=== PATIENT | female | born 1940 | race Caucasian/White ===

== ENCOUNTER 2021-06-22 11:56 | Emergency (ER) | payer MEDICARE, SELFPAY ==
[2021-06-22] VITALS (8 sets, daily range): BP systolic 130–172; BP diastolic 62–89; PULSE 58–66; RESP 15–20; TEMP 36.3; O2SAT 98–100
[2021-06-22 12:50] LABS: Basophils Percent Auto 0.5 % (0.2-1.2); Eosinophils Absolute Auto 0.1 K/mm3 (0-0.3); Eosinophils Percent Auto 2.2 % (0-4.4); Hematocrit 42.8 % (37.0-47.0); Lymphocytes Absolute Auto 0.71 K/mm3 (0.9-3.2); Lymphocytes Percent Auto 17.4 % (18.3-44.2); Mean Corpuscular HGB Conc 32.7 g/dl (32-36); Mean Corpuscular Hemoglobin 28.7 pg (26-34); Mean Corpuscular Volume 87.7 fl (80-100); Mean Platelet Volume 9.9 fl (7.4-10.4); Monocytes Absolute Auto 0.3 K/mm3 (0.1-0.6); Monocytes Percent Auto 6.1 % (2.6-8.5); Neutrophils Percent Auto 73.8 % (45.5-73.1); Platelet Count Result 198 k/mm3 (150-375); Red Blood Count 4.88 M/mm3 (4.2-5.4); Red Cell Distribution Width 13.1 % (11.5-14.5); White Blood Count 4.1 K/mm3 (4.5-10.0)
[2021-06-22 13:13] LABS: Add Urine Microscopic? YES; Appearance Urine Cloudy (Clear); Bilirubin Urine Negative (Negative); Blood Urine Negative (Negative); Color Urine Amber (Yellow); Glucose Urine UA Negative (Negative); Ketones Urine Trace mg/dL (Negative); Leukocyte Esterase Ur Negative LEU/UL (Negative); Mucus Urine Rare /lpf; Nitrate Urine Negative (Negative); Protein Urine 1+ mg/dL (Negative); Specific Grav Ur 1.026 (1.001-1.035); Squamous Epithelial Cell Urine Rare /hpf (Few); WBC Urine 0-3 /hpf
[2021-06-22 13:20] LABS: Alanine Aminotransferase 17 U/L (4-35); Albumin Level 4.7 g/dL (3.5-5.1); Alkaline Phosphatase 67 U/L (38-126); Anion Gap 8 mmol/L (8-16); Aspartate Amino Transferase 28 U/L (14-36); Bilirubin,Total 1.7 mg/dL (0.2-1.3); Blood Urea Nitrogen 15 mg/dL (7-17); Calcium 10.7 mg/dL (8.4-10.2); Carbon Dioxide 30 mmol/L (22-30); Chloride 98 mmol/L (98-107); Estimated CRCL calculation 30 ml/min; Estimated Glomerular Filt Rate 53; Glucose 109 mg/dL (65-110); Lipase 180 U/L (23-300); Potassium 3.6 mmol/L (3.4-5.0); Sodium 136 mmol/L (137-145)
[2021-06-22] MEDS: SODIUM CHLORIDE 0.9% IV 1,000 ML 999 ML IV CONT (16:26)
[2021-06-22] MEDS: ONDANSETRON INJ 4 MG/2 ML VIAL IV PUSH (16:26)
--- NOTE | 2021-06-22 17:35 | ED.NAVMDI ---
HPI - Nausea/Vomiting/Diarrhea General Chief complaint: Nausea/Vomiting/Diarrhea Stated complaint: n/v Time Seen by Provider: 06/22/21 15:45 History of Present Illness HPI Narrative: Patient is an 81-year-old female who presents to the ER with nausea. Ongoing for 6 days. Has tried to eat but cannot make herself eat due to the nausea. She has had no emesis. No known sick contacts. Denies diarrhea. Denies fevers or chills or sweats. Has no access to antiemetics. Related Data Home Medications Medication Instructions Recorded Confirmed atenolol-chlorthalidone tablet 06/22/21 potassium chloride meq PO 06/22/21 Allergies Allergy/AdvReac Type Severity Reaction Status Date / Time latex Allergy Hives Verified 06/22/21 15:45 Review of Systems Review of Systems: All systems reviewed & are unremarkable except as noted in HPI and below Constitutional: Constitutional: Denies chills, Reports fatigue and Denies fever(s) ENT: Denies nasal congestion and Denies sore throat Cardiovascular: Cardiovascular: Denies chest pain and Denies radiating jaw, neck or arm pain Respiratory: Respiratory: Denies cough and Denies dyspnea Gastrointestinal: Gastrointestinal: Denies abdominal pain, Denies diarrhea, Reports nausea and Denies vomiting Genitourinary: Genitourinary: Denies nocturia, Denies dysuria and Denies flank pain PMFSH Past Medical History Medical History (Updated 06/22/21 @ 18:10 by Pollo Nielsen MD) History of colon cancer Surgical History Surgical History (Updated 06/22/21 @ 18:10 by Pollo Nielsen MD) H/O partial resection of colon Social History Social History (Updated 06/22/21 @ 18:10 by Pollo Nielsen MD) Smoking status: Never smoker Gender identity (if verbalized by the patient): Female Exam Narrative: GENERAL: Well-appearing, well-nourished, and in no acute distress. HEAD: Normocephalic, atraumatic. EYES: PERRL and EOMI. CHEST: Clear to auscultation. No respiratory distress. HEART: Regular rate and rhythm. Normal peripheral pulses. ABDOMEN: Soft, nontender, nondistended, normal active bowel sounds. EXTREMITIES: Normal range of motion. No edema. SKIN: Warm, dry, no rash. NEURO: Alert and oriented x3. PSYCH: Normal mood and affect. Course Course Emergency Course: Symptoms resolved with antiemetics and fluids. Discharge home. Vital Signs Vital signs: Vital Signs Temperature 97.4 F L 06/22/21 12:12 Pulse Rate 63 06/22/21 12:12 Respiratory Rate 20 06/22/21 12:12 Blood Pressure 130/76 06/22/21 12:12 Pulse Oximetry 98 06/22/21 12:12 Temperature 97.4 F L 06/22/21 12:12 Pulse Rate 61 06/22/21 17:08 Respiratory Rate 16 06/22/21 17:08 Blood Pressure 148/71 H 06/22/21 17:08 Pulse Oximetry 100 06/22/21 17:08 MDM - Nausea/Vomiting/Diarrhea Lab Data Result diagrams: 06/22/21 12:42 06/22/21 12:42 Labs: Lab Results 06/22/21 06/22/21 06/22/21 Range/Units 12:42 12:42 12:47 WBC 4.1 L (4.5-10.0) K/mm3 RBC 4.88 (4.2-5.4) M/mm3 Hgb 14.0 (12.0-15.0) g/dL Hct 42.8 (37.0-47.0) % MCV 87.7 (80-100) fl MCH 28.7 (26-34) pg MCHC 32.7 (32-36) g/dl RDW 13.1 (11.5-14.5) % Plt Count 198 (150-375) k/mm3 MPV 9.9 (7.4-10.4) fl Immature Gran % (Auto) 0.0 (0-0.5) % Neut % (Auto) 73.8 H (45.5-73.1) % Lymph % (Auto) 17.4 L (18.3-44.2) % [place] % (Auto) 6.1 (2.6-8.5) % Eos % (Auto) 2.2 (0-4.4) % Baso % (Auto) 0.5 (0.2-1.2) % Lymph # (Auto) 0.71 L (0.9-3.2) K/mm3 [place] # (Auto) 0.3 (0.1-0.6) K/mm3 Eos # (Auto) 0.1 (0-0.3) K/mm3 Baso # (Auto) 0.0 (0.0-0.1) K/mm3 Abs Immat Gran (auto) 0.00 (0.00-0.031) K/mm3 Absolute Neuts (auto) 3.0 (1.3-6.7) K/mm3 Absolute Nucleated RBC 0.0 (0.0-0.012) K/mm3 Nucleated RBC % 0.0 (0.0-0.2) % Sodium 136 L (137-145) mmol/L Potassium 3.6 (3.4-5.0) mmol/L Chloride 98
== END 2021-06-22 18:26 | disposition home or self-care (01) ==
PROVIDERS: Emergency Provider Emergency Medicine; PCP Internal Medicine
DX: R11.0 Nausea (principal); Z85.038 Personal history of other malignant neoplasm of large intestine; Z90.49 Acquired absence of other specified parts of digestive tract
CPT/HCPCS: 36415; 80053; 81001; 83690; 85025; 96361; 96374; 99284; J2405; J7030

== ENCOUNTER 2021-09-05 15:48 | Emergency (ER) | payer MEDICARE, SELFPAY ==
[2021-09-05] VITALS (7 sets, daily range): BP systolic 126–139; BP diastolic 51–68; PULSE 56–63; RESP 12–37; TEMP 36.4; O2SAT 99–100
--- NOTE | ~2021-09-05 | XR_ITS ---
EXAMINATION: XR chest 2V DATE: 09/05/2021 17:25 INDICATION: Dizziness. Near syncope. TECHNIQUE: Frontal and lateral views of the chest were obtained. COMPARISON: Chest single view 07/11/2008 FINDINGS: Calcified left lung nodules are consistent with old granulomatous disease. There is mild sc arring at the lung apices. There is mild atelectasis in lingula. No pleural effusion or pneumothorax. The heart size is normal. IMPRESSION: 1. Mild atelectasis in lingula. Reviewed, dictated and finalized at location A.
--- NOTE | 2021-09-05 15:53 | ECG_ITS ---
Measurements Intervals [place] Rate: 56 P: 96 [place]: 195 QRS: -21 QRSD: 101 T: 51 QT: 430 QTc: 419 Interpretive Statements SINUS BRADYCARDIA ANTEROSEPTAL INFARCT, AGE INDETERMINATE CONSIDER INFERIOR INFARCT, AGE INDETERMINATE BASELINE ARTIFACT- I, III, AVL, V4 ABNORMAL ECG Electronically Signed On 09-05-2021 17:50:45 CDT by Johnson Tierney D.O.
[2021-09-05 16:09] LABS: Basophils Percent Auto 0.4 % (0.2-1.2); Eosinophils Absolute Auto 0.1 K/mm3 (0-0.3); Eosinophils Percent Auto 1.5 % (0-4.4); Hematocrit 40.3 % (37.0-47.0); Hemoglobin 13.3 g/dL (12.0-15.0); Immature Granulocyte Absolute 0.02 K/mm3 (0.00-0.031); Immature Granulocyte Percent A 0.4 % (0-0.5); Lymphocytes Absolute Auto 1.06 K/mm3 (0.9-3.2); Lymphocytes Percent Auto 22.3 % (18.3-44.2); Mean Corpuscular Hemoglobin 29.4 pg (26-34); Mean Platelet Volume 9.6 fl (7.4-10.4); Monocytes Absolute Auto 0.3 K/mm3 (0.1-0.6); Monocytes Percent Auto 6.3 % (2.6-8.5); Neutrophils Absolute Auto 3.3 K/mm3 (1.3-6.7); Neutrophils Percent Auto 69.1 % (45.5-73.1); Platelet Count Result 189 k/mm3 (150-375); Red Blood Count 4.53 M/mm3 (4.2-5.4); Red Cell Distribution Width 13.5 % (11.5-14.5); White Blood Count 4.8 K/mm3 (4.5-10.0)
[2021-09-05 16:21] LABS: Anion Gap 10 mmol/L (8-16); Blood Urea Nitrogen 18 mg/dL (7-17); Calcium 10.3 mg/dL (8.4-10.2); Carbon Dioxide 29 mmol/L (22-30); Chloride 103 mmol/L (98-107); Estimated CRCL calculation 32 ml/min; Estimated Glomerular Filt Rate 53; Glucose 141 mg/dL (65-110); Potassium 4.6 mmol/L (3.4-5.0); Sodium 142 mmol/L (137-145)
--- NOTE | 2021-09-05 16:24 | PC.NURSE ---
Called Khadijah in lab and added Hepatic
--- NOTE | 2021-09-05 16:27 | ED.DIZZY ---
HPI - Dizziness General Chief Complaint: Syncope Stated Complaint: NEAR SYNCOPE Time Seen by Provider: 09/05/21 16:13 Source: patient History of Present Illness HPI Narrative: Patient presents with dizziness. Patient was shopping at [employer] was feeling thirsty and was checking out the finance intern when she had a sudden onset lightheadedness. She reports symptoms were brief resolved after drinking water and resting. Reports she feels well now and has no complaints. She reports been feeling well over the past couple days denies any change in p.o. intake recent fevers, cough, congestion, nausea or vomiting. She denies any chest pain or shortness of breath during the event she denies any nausea or vomiting during the event. She denies prior history of syncopal episode she does report history of hypokalemia. Related Data Home Medications Medication Instructions Recorded Confirmed atenolol-chlorthalidone tablet 06/22/21 potassium chloride meq PO 06/22/21 Allergies Allergy/AdvReac Type Severity Reaction Status Date / Time latex Allergy Hives Verified 09/05/21 15:54 Review of Systems Review of Systems: CONSTITUTIONAL: Denies fever, chills, or sweats. EYES: Denies visual changes, redness, or discharge. ENT: Denies rhinorrhea, congestion, sore throat, or otalgia. CARDIOVASCULAR: Denies chest pain, palpitations, or edema. RESPIRATORY: Denies cough or dyspnea. GASTROINTESTINAL: Denies abdominal pain, nausea, vomiting, or diarrhea. GENITOURINARY: Denies dysuria or hematuria. SKIN: Denies rash or itching. MUSCULOSKELETAL: Denies back pain, joint pain, or myalgia. NEUROLOGIC: Denies headache, numbness, dizziness, or weakness. PSYCHIATRIC: Denies anxiety or depression. All systems reviewed & are unremarkable except as noted in HPI and below PMFSH Past Medical History Medical History History of colon cancer Surgical History Surgical History H/O partial resection of colon Social History Social History Smoking status: Never smoker Gender identity (if verbalized by the patient): Female Exam Narrative: GENERAL: Well-appearing, well-nourished, and in no acute distress. HEAD: Normocephalic, atraumatic. EYES: PERRLA and EOMI. ENT: Nares clear, no rhinorrhea or epistaxis. Mucous membranes moist. NECK: Supple. No masses. No JVD CHEST: Clear to auscultation. No respiratory distress. No wheezes rales or rhonchi HEART: Regular rate and rhythm. No murmur heard. Normal peripheral pulses. ABDOMEN: Soft, nontender, nondistended, normal active bowel sounds. EXTREMITIES: Normal range of motion. No edema. SKIN: Warm, dry, no rash. NEURO: No focal deficits. Alert and oriented x3. PSYCH: Normal mood and affect. Course Reevaluation(s) Reevaluation #1: Patient continues to be asymptomatic while in the ER. Work-up reviewed with patient. Primary concern is for UTI. Patient is most comfortable with outpatient antibiotics. With otherwise reassuring work-up trial of outpatient antibiotics is appropriate. Date: 09/05/21 Time: 17:44 Vital Signs Vital signs: Vital Signs Temperature 36.4 C L 09/05/21 15:48 Pulse Rate 63 09/05/21 15:48 Respiratory Rate 18 09/05/21 15:48 Blood Pressure 139/68 09/05/21 15:48 Pulse Oximetry 99 09/05/21 15:48 Temperature 36.4 C L 09/05/21 15:48 Pulse Rate 58 L 09/05/21 16:23 Respiratory Rate 17 09/05/21 16:16 Blood Pressure 126/56 L 09/05/21 16:15 Pulse Oximetry 100 09/05/21 16:16 MDM - Dizziness MDM Narrative Medical decision making narrative: H&P as above, vss, pt looks clinically well, exam reassuring, labs with concern for infected urine otherwise clinically unremarkable, img unremarkable, additional labs/img considered, symptomatic relief available as needed, on reevaluation pt continues to looks clinic
[2021-09-05 16:38] LABS: Alanine Aminotransferase 16 U/L (4-35); Albumin Level 4.6 g/dL (3.5-5.1); Alkaline Phosphatase 53 U/L (38-126); Aspartate Amino Transferase 23 U/L (14-36); Bilirubin,Total 1.1 mg/dL (0.2-1.3)
[2021-09-05] MEDS: SODIUM CHLORIDE 0.9% IV 500 ML 999 ML IV CONT (17:01)
[2021-09-05 17:21] LABS: Add Urine Microscopic? YES; Appearance Urine Cloudy (Clear); Bacteria Urine 1+ /hpf; Bilirubin Urine Negative (Negative); Color Urine Yellow (Yellow); Glucose Urine UA Negative (Negative); Ketones Urine Negative (Negative); Leukocyte Esterase Ur 3+ LEU/UL (Negative); Mucus Urine Rare /lpf; Nitrate Urine Positive (Negative); Protein Urine 1+ mg/dL (Negative); Specific Grav Ur 1.015 (1.001-1.035); Squamous Epithelial Cell Urine Rare /hpf (Few); Urobilinogen Urine Negative mg/dL (<2.0); WBC Urine >75 /hpf
[2021-09-05 17:22] LABS: Blood Urine Negative (Negative)
== END 2021-09-05 18:07 | disposition home or self-care (01) ==
PROVIDERS: Emergency Medicine; Emergency Provider Emergency Medicine; PCP Internal Medicine
DX: N39.0 Urinary tract infection, site not specified (principal); Z85.038 Personal history of other malignant neoplasm of large intestine; R00.1 Bradycardia, unspecified; R94.31 Abnormal electrocardiogram [ECG] [EKG]
CPT/HCPCS: 36415; 71046; 80048; 80076; 81001; 85025; 87077; 87086; 87186; 93005; 96360; 99284; J7040

== ENCOUNTER 2023-04-06 18:49 | Observation (INO) | payer MEDICARE, SELFPAY ==
--- NOTE | ~2023-04-06 | XR_ITS ---
EXAMINATION: XR pelvis 1-2V DATE: 04/06/2023 22:55 INDICATION: Fall with weakness TECHNIQUE: An anteroposterior view of the pelvis was obtained. COMPARISON: None. FINDINGS: Alignment is normal. No fracture. Mild bilateral hip and sacroiliac osteoarthritis. Likely transition al lumbosacral segment with severe lower lumbar facet osteoarthritis. Suture line in the pelvis. IMPRESSION: 1. Degenerative skeletal changes most prominent at the lower lumbar facet joints. No evident fracture . Reviewed, dictated and finalized at location A. IMPRESSION: 1. Degenerative skeletal changes most prominent at the lower lumbar facet joint s. No evident fracture.
--- NOTE | ~2023-04-06 | CT_ITS ---
EXAMINATION: CT cervical spine wo con DATE: 04/06/2023 20:59 INDICATION: Weakness post fall with head injury TECHNIQUE: Computed tomography (CT) of the cervical spine was performed without intravenous contrast. Automated exposure control and iterative reconstruction technique were employed. The dose-length pro duct was 152.22 mGy-cm. COMPARISON: None FINDINGS: Alignment mild cervicothoracic levocurvature. Sagittal alignment is normal. Vertebral body heights ar e normal. No fracture. Mild disc height loss at C3-C4 through T3-T4. Disc osteophyte complex at C3-C4 resulting in mild central canal stenosis at this level. Multilevel bilateral cervical uncovertebral osteoarthritis, severe on the right at C3-C4 and otherwise mild to moderate . There is also multileve l bilateral moderate to severe cervical facet osteoarthritis. This contributes to mild neural foramin al stenosis most prominent bilaterally at C3-C4 and on the left at C4-C5. Visualized apices of lungs in the cervical soft tissues are unremarkable. IMPRESSION: 1. Mild cervical spondylosis with moderate to severe uncovertebral and facet osteoarthritis. No acute osseous abnormality. Reviewed, dictated and finalized at location A. IMPRESSION: 1. Mild cervical spondylosis with moderate to severe uncovertebral and facet os teoarthritis. No acute osseous abnormality.
--- NOTE | ~2023-04-06 | CT_ITS ---
EXAMINATION: CT brain wo con DATE: 04/06/2023 20:59 INDICATION: Weakness post fall with head injury TECHNIQUE: Computed tomography (CT) of the head was performed without intravenous contrast. Sagittal and coronal reconstructions were performed. The mA was adjusted according to patient size. Iterative reconstruction technique was employed. The dose-length product was 605.33 mGy-cm. 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 Additional small old lacunar infarcts at the left lent iform nucleus. No acute intracranial hemorrhage, acute infarction or abnormal extra axial fluid colle ction. There is mild scattered white matter hypoattenuation consistent with chronic small vessel isch emic disease. Symmetric prominence of the sulci and ventricles consistent with mild age-appropriate d iffuse cerebral volume loss. Ventricles are normal and symmetric. No mass/mass effect. Small left ma stoid effusion. The orbits, paranasal sinuses and right mastoid air cells are normal. IMPRESSION: 1. 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 No acute intracranial process. 2. Age-related changes including mild diffuse volume loss and mild scattered white matter hypoattenua tion consistent with chronic small vessel ischemic disease. Reviewed, dictated and finalized at location A. IMPRESSION: 1. 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 No acute intracrania l process. 2. Age-related changes including mild diffuse volume loss and mild scattered wh ite matter hypoattenuation consistent with chronic small vessel ischemic diseas e.
--- NOTE | ~2023-04-06 | XR_ITS ---
EXAMINATION: XR chest 1V DATE: 04/06/2023 22:55 INDICATION: Fall TECHNIQUE: frontal view of the chest was obtained. COMPARISON: Chest radiograph date FINDINGS: Costochondral calcific lesions project over the medial aspect of the bilateral mid and lower lung zon es. Linear discoid atelectasis at the medial left lower lung zone. No other airspace opacities, pulmo nary edema, pleural effusion or pneumothorax. Heart size is normal. Mild thoracic spondylosis. IMPRESSION: 1. Mild linear discoid atelectasis at the lower lung zone. No other acute cardiopulmonary disease. Reviewed, dictated and finalized at location A. IMPRESSION: 1. Mild linear discoid atelectasis at the lower lung zone. No other acute cardi opulmonary disease.
[2023-04-06 18:50] VITALS: BP 168/56; PULSE 68; RESP 20; TEMP 37.1; O2SAT 95
[2023-04-06 18:57] VITALS: PULSE 66
--- NOTE | 2023-04-06 18:57 | ECG_ITS ---
Measurements Intervals [place] Rate: 64 P: 89 [place]: 184 QRS: -7 QRSD: 98 T: 48 QT: 408 QTc: 423 Interpretive Statements SINUS RHYTHM LOW QRS VOLTAGE IN PRECORDIAL LEADS ANTEROSEPTAL INFARCT, AGE INDETERMINATE CONSIDER INFERIOR INFARCT, AGE INDETERMINATE ABNORMAL ECG COMPARED TO ECG 09/05/2021 15:55:33 SINUS RHYTHM NOW PRESENT Electronically Signed On 04-06-2023 20:50:42 CDT by Johnson Tierney D.O.
[2023-04-06 19:43] LABS: Hematocrit 35.1 % (37.0-47.0); Hemoglobin 11.9 g/dL (12.0-15.0); Immature Platelet Fraction Pct 3.6 % (0.9-11.2); Mean Corpuscular HGB Conc 33.9 g/dl (32-36); Mean Corpuscular Hemoglobin 29.2 pg (26-34); Mean Platelet Volume 9.6 fl (7.4-10.4); Platelet Count Result 139 k/mm3 (150-375); Red Blood Count 4.08 M/mm3 (4.2-5.4); Red Cell Distribution Width 13.6 % (11.5-14.5)
[2023-04-06 19:54] LABS: Alanine Aminotransferase 35 U/L (6-35); Albumin Level 3.7 g/dL (3.5-5.1); Alkaline Phosphatase 107 U/L (38-126); Anion Gap 6 mmol/L (8-16); Aspartate Amino Transferase 37 U/L (14-36); Bilirubin,Total 2.1 mg/dL (0.2-1.3); Blood Urea Nitrogen 21 mg/dL (7-17); Calcium 8.8 mg/dL (8.4-10.2); Carbon Dioxide 33 mmol/L (22-30); Chloride 94 mmol/L (98-107); Estimated CRCL calculation 33 ml/min; Estimated Glomerular Filt Rate > 60; Glucose 127 mg/dL (65-110); Lipase 110 U/L (23-300); Potassium 2.9 mmol/L (3.4-5.0); Sodium 133 mmol/L (137-145)
[2023-04-06 20:08] LABS: Band Neutrophils Percent 3 % (0-6); Lymphocytes Absolute Manual 0.48 K/mm3 (1.1-4.5); Monocytes Absolute Manual 0.16 K/mm3 (0.1-0.90); Monocytes Percent Manual 2 % (3-9); Neutrophils Absolute Manual 7.36 K/mm3 (1.7-7.2); Neutrophils Percent Manual 89 % (46-73); Platelet Estimate Decreased (Adequate); Schistocytes None Seen (NORMAL); Total Cells Counted 100
[2023-04-06 20:40] LABS: Appearance Urine Turbid (Clear); Bacteria Urine 4+ /hpf; Bilirubin Urine Negative (Negative); Blood Urine 1+ (Negative); Color Urine Yellow (Yellow); Glucose Urine UA Negative (Negative); Ketones Urine 2+ mg/dL (Negative); Leukocyte Esterase Ur 3+ LEU/UL (Negative); Need Manual Microscopic Reviewed; Nitrate Urine Negative (Negative); Non Pathogenic Casts 0-2; Protein Urine 2+ mg/dL (Negative); RBC Urine 0-2 /hpf (0-2); Specific Grav Ur 1.014 (1.001-1.035); Squamous Epithelial Cell Urine None seen /hpf (Few); WBC Urine >100 /hpf; pH Urine 7.5 (5.0-9.0)
[2023-04-06 20:41] LABS: Add Urine Microscopic? YES
[2023-04-06] MEDS: SODIUM CHLORIDE 0.9% IV 2,000 ML 999 ML IV CONT (20:42)
[2023-04-06] MEDS: FAMOTIDINE 20 MG/2 ML VIAL IV PUSH (20:43)
[2023-04-06] MEDS: ONDANSETRON INJ 4 MG/2 ML VIAL IV PUSH (20:43)
--- NOTE | 2023-04-06 21:02 | ED.GENADULT ---
HPI - General Adult General Chief complaint: Weakness Stated complaint: GEN WEAKNESS Time Seen by Provider: 04/06/23 19:09 History of Present Illness HPI narrative: This an 82-year-old female presenting chief complaint of weakness. The patient is very weak and is complaining of some nausea. The family is at bedside and said that she has had increased decreased appetite over the last month but specifically worse over the last 2 days. She has been too weak to get up. She did fall in the bathroom and struck her head but she does not remember the events leading to the fall. She denies loss of consciousness and denies use of blood thinners. Patient has noted that she has had increased urinary urgency and frequency and has history of UTIs. family's concern is that she is dehydrated. She denies fever chills chest pain difficulty breathing abdominal pain. Related Data Home Medications Medication Instructions Recorded Confirmed atenolol 50 mg-chlorthalidone 25 tablet 06/22/21 02/08/23 mg tablet potassium chloride 20 mEq meq PO 06/22/21 02/08/23 tablet,extended release(part/cryst) Allergies Allergy/AdvReac Type Severity Reaction Status Date / Time latex Allergy Hives Verified 02/08/23 10:58 [facility] Past Medical History Medical History History of colon cancer Mild cognitive impairment Surgical History Surgical History H/O partial resection of colon History of cholecystectomy Family History Family History Father Carcinoma of colon Social History Social History Smoking status: Never smoker Second hand tobacco smoke exposure: No Substance use: never Living arrangements: with family Occupation/Education: retired Gender identity (if verbalized by the patient): Female Sexual Orientation (if Verbalized by the Patient): Straight or Heterosexual Spiritual care concerns: No Exam Narrative: APPEARANCE: No apparent distress. Patient appears frail Head: Small hematoma to the back of the head EYES: EOMI, NOSE: Atraumatic NECK: Trachea midline RESPIRATORY: No increased rate of breathing CTAB CARDIOVASCULAR: RRR, ABDOMINAL: soft nontender no guarding or rebound MUSCULOSKELETAl: head to toe trauma exam revealed no traumatic injuries outside of the small hematoma in the back of her head NEURO: Alert. Cranial nerves 2-12 grossly intact. Sensation light touch, motor function cerebellar function intact for 4 extremities. gait exam was deferred SKIN:: Warm, dry. Normal color PSYCHIATRIC: Normal affect Course Vital Signs Vital signs: Vital Signs Temperature 98.8 F 04/06/23 18:50 Pulse Rate 68 04/06/23 18:50 Respiratory Rate 20 04/06/23 18:50 Blood Pressure 168/56 H 04/06/23 18:50 Pulse Oximetry 95 04/06/23 18:50 Oxygen Delivery Room Air 04/06/23 18:50 Temperature 98.8 F 04/06/23 18:50 Pulse Rate 66 04/06/23 18:57 Respiratory Rate 20 04/06/23 18:50 Blood Pressure 168/56 H 04/06/23 18:50 Pulse Oximetry 95 04/06/23 18:50 Oxygen Delivery Room Air 04/06/23 18:50 Medical Decision Making [facility] Narrative Medical decision making narrative: -Presentation: 82-year-old female presenting with weakness and a fall. 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 -External Chart Review: review primary care office visit from January of 2023 for decreased appetite and increasing gait imbalance and weakness. -Hx from independent Sources: Son and daughter at bedside. -Discus
--- NOTE | 2023-04-06 21:29 | PM.IMHP ---
H&P: HPI History of Present Illness Date/Time: 04/06/23 21:29 Chief Complaint: generalized weakness Narrative: This is an 82-year-old female with past medical history significant for hypertension, dementia. Patient presents to the emergency room due to generalized weakness also had a fall the day before when she was getting up the toilet fell backwards hitting her head but denied any loss of consciousness, has had poor per oral intake and generalized malaise, denies any fevers, rigors, chills, cough, sputum production. preliminary workup was significant for urinalysis with numerous WBCs present, comprehensive metabolic profile showed a bilirubin of 2.1, sodium 133. a CT of the head was reported as: EXAMINATION: CT brain wo con DATE: 04/06/2023 20:59 INDICATION: Weakness post fall with head injury TECHNIQUE: Computed tomography (CT) of the head was performed without intravenous contrast. Sagittal and coronal reconstructions were performed. The mA was adjusted according to patient size. Iterative reconstruction technique was employed. The dose-length product was 605.33 mGy-cm. 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 Additional small old lacunar infarcts at the left lentiform nucleus. No acute intracranial hemorrhage, acute infarction or abnormal extra axial fluid collection. There is mild scattered white matter hypoattenuation consistent with chronic small vessel ischemic disease. Symmetric prominence of the sulci and ventricles consistent with mild age-appropriate diffuse cerebral volume loss.? Ventricles are normal and symmetric. No mass/mass effect. Small left mastoid effusion. The orbits, paranasal sinuses and right mastoid air cells are normal. IMPRESSION: 1. 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 No acute intracranial process. 2. Age-related changes including mild diffuse volume loss and mild scattered white matter hypoattenuation consistent with chronic small vessel ischemic disease. a chest x-ray was reported as: EXAMINATION: XR chest 1V DATE: 04/06/2023 22:55 INDICATION: Fall TECHNIQUE: frontal view of the chest was obtained. COMPARISON: Chest radiograph date FINDINGS: Costochondral calcific lesions project over the medial aspect of the bilateral mid and lower lung zones. Linear discoid atelectasis at the medial left lower lung zone. No other airspace opacities, pulmonary edema, pleural effusion or pneumothorax. Heart size is normal. Mild thoracic spondylosis. IMPRESSION: 1. Mild linear discoid atelectasis at the lower lung zone. No other acute cardiopulmonary disease. Review of Systems Review of Systems: fall, generalized malaise, generalized weakness, poor per oral intake. Constitutional: Constitutional: Denies chills, Reports fatigue, Denies fever(s), Reports lethargy, Reports malaise, Denies night sweats, Reports poor appetite, Reports weakness and Reports other ( fall) Eyes: Eyes: Denies change in vision ENT: Denies dysphagia, Denies vertigo, Denies dizziness and Denies odynophagia Cardiovascular: Cardiovascular: Denies chest pain, Denies leg edema and Denies radiating jaw, neck or arm pain Respiratory: Respiratory: Denies cough and Denies excessive phlegm production Gastrointestinal: Gastrointestinal: Denies abdominal pain, Denies dyspepsia, Denies heartburn, Denies diarrhea, Denies nausea and Denies vomiting Genitourinary: Genitourinary: Denies dysuria Musculoskeletal: Musculoskeletal: Reports muscle weakness Integumentary/Breasts: Skin/Breast: Denies rash Neurologic: Denies vertigo, Denies dizziness, Denies focal weakness and Denies Sensory deficit (Neuro) Psychiatric: Psychiatric: Reports no additional psychiatric complaints and Reports as per HPI En
[2023-04-06] MEDS: POTASSIUM CHLORIDE 20 MEQ TABLET 80 MEQ PO (21:59)
--- NOTE | 2023-04-06 22:07 | PC.NURSE ---
PO potassium tablets not given due to patient being unable to swallow them. provider made aware and order changed to powder.
[2023-04-06 23:37] VITALS: BP 152/57; PULSE 66; RESP 18; TEMP 36.7; O2SAT 96
[2023-04-06] MEDS: LACTATED RINGERS 1,000 ML 75 ML IV CONT (23:55)
[2023-04-07 00:02] VITALS: BP 139/60; PULSE 62; RESP 16; TEMP 36.4; O2SAT 97; BMI 17.2
--- NOTE | 2023-04-07 00:42 | PC.NURSE ---
This patient, Yolande Juarez, was admitted to Medical Room 345-01. Patient/family oriented to hospital policies and general routines including ID bracelet, bed and alarms, visiting hours, pain management, procedures, bathroom and other care routines, personal items, smoking policy, room service/diet, and visiting hours. Information on how to activate the Rapid Response Team has been discussed. Patient/Family are encouraged to report perceived risks to care and to ask questions if they do not understand what they are told or what they should do.
[2023-04-07 06:00] VITALS: BP 131/79; PULSE 64; RESP 16; TEMP 36.8; O2SAT 93
[2023-04-07 07:47] LABS: Alanine Aminotransferase 34 U/L (6-35); Albumin Level 3.3 g/dL (3.5-5.1); Alkaline Phosphatase 96 U/L (38-126); Anion Gap 2 mmol/L (8-16); Aspartate Amino Transferase 32 U/L (14-36); Bilirubin,Total 1.5 mg/dL (0.2-1.3); Blood Urea Nitrogen 17 mg/dL (7-17); Calcium 8.3 mg/dL (8.4-10.2); Carbon Dioxide 33 mmol/L (22-30); Chloride 97 mmol/L (98-107); Estimated CRCL calculation 33 ml/min; Estimated Glomerular Filt Rate > 60; Glucose 125 mg/dL (65-110); Sodium 132 mmol/L (137-145)
[2023-04-07 07:48] LABS: Magnesium 1.7 mg/dL (1.6-2.3)
--- NOTE | 2023-04-07 08:00 | P.PNIM_ITS ---
Progress Note: A&P Assessment and Plan (1) Acute UTI: Code(s): N39.0 - Urinary tract infection, site not specified Status: Acute Assessment and Plan: * UA appears infectious with many leukocyte esterase, WBC >100, 4+ bacteria * Continue ceftriaxone for now * Await urine cultures * Adjust therapy to culture results (2) Acute hypokalemia: Code(s): E87.6 - Hypokalemia Status: Acute Assessment and Plan: * K noted to be 2.9 upon admission * Replaced with 80meq * Trend potassium * replace as indicated (3) Generalized weakness: Code(s): R53.1 - Weakness Status: Acute Assessment and Plan: * Notable UTI, per UA results * PT/OT ordered * Most likely related to infectious process * Fall precautions (4) Fall: Qualifiers: Encounter type: initial encounter Qualified Code(s): W19.XXXA - Unspecified fall, initial encounter Code(s): W19.XXXA - Unspecified fall, initial encounter Status: Acute Assessment and Plan: * Reports getting up the toilet fell backwards? 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9 - Acute kidney failure, unspecified Status: Acute Assessment and Plan: * BUN noted to be elevated at 21 most likely related to dehydration * IV fluids given in the ED * Trend labs * Adjust therapy as indicated * Encourage PO intake * Continue LR at 75ml/hr (7) Severe protein-calorie malnutrition: Code(s): E43 - Unspecified severe protein-calorie malnutrition Status: Acute Assessment and Plan: * Reports lack of appetite, 13 lb unintentional weight loss since November, reported many missed meals, BMI 17.3 * Corporate Services Manager consult * Encourage PO intake * Supplements added * Regular diet Time Spent With Patient Time: 48 minutes Time with patient: Greater than 35 minutes Subjective Date/time seen: 04/07/23 0800 Interval history: 04/07/23799 Patient is laying in bed. She denies any current chest pain, shortness of breath, nausea, vomiting, diarrhea, constipation, weakness or fatigue. She did have the complaint of lack of appetite. She also seemed to know some orientation questions however, she would start off with the wrong answer then correct herself. 04/06/23? 21:29 ?This is an 82-year-old female with past medical history significant for hypertension, dementia.? Patient presents to the emergency room due to generalized weakness also had a fall the day before when she was getting up the toilet fell backw
--- NOTE | 2023-04-07 08:00 | PM.IMPN ---
Progress Note: A&P Assessment and Plan (1) Acute UTI: Code(s): N39.0 - Urinary tract infection, site not specified Status: Acute Assessment and Plan: UA appears infectious with many leukocyte esterase, WBC >100, 4+ bacteria Continue ceftriaxone for now Await urine cultures Adjust therapy to culture results (2) Acute hypokalemia: Code(s): E87.6 - Hypokalemia Status: Acute Assessment and Plan: K noted to be 2.9 upon admission Replaced with 80meq Trend potassium replace as indicated (3) Generalized weakness: Code(s): R53.1 - Weakness Status: Acute Assessment and Plan: Notable UTI, per UA results PT/OT ordered Most likely related to infectious process Fall precautions (4) Fall: Qualifiers: Encounter type: initial encounter Qualified Code(s): W19.XXXA - Unspecified fall, initial encounter Code(s): W19.XXXA - Unspecified fall, initial encounter Status: Acute Assessment and Plan: Reports getting up the toilet fell backwards? 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, no acute changes Cervical CT mild cervical spondylosis with moderate to severe uncovertebral and facet OA Pelvis xray shows no fracture Probably related to UTI infection (5) HTN (hypertension): Qualifiers: Hypertension type: primary hypertension Qualified Code(s): I10 - Essential (primary) hypertension Code(s): I10 - Essential (primary) hypertension Status: Acute Assessment and Plan: BP is 131/79 Continue atenolol 50mg PO daily Hold chlorthalidone with related CLIFF and findings of dehydration Trend BP Adjust therapy as indicated (6) CLIFF (acute kidney injury): Code(s): N17.9 - Acute kidney failure, unspecified Status: Acute Assessment and Plan: BUN noted to be elevated at 21 most likely related to dehydration IV fluids given in the ED Trend labs Adjust therapy as indicated Encourage PO intake Continue LR at 75ml/hr (7) Severe protein-calorie malnutrition: Code(s): E43 - Unspecified severe protein-calorie malnutrition Status: Acute Assessment and Plan: Reports lack of appetite, 13 lb unintentional weight loss since November, reported many missed meals, BMI 17.3 Infusion Pharmacist consult Encourage PO intake Supplements added Regular diet Time Spent With Patient Time: 48 minutes Time with patient: Greater than 35 minutes Subjective Date/time seen: 04/07/23 0800 Interval history: 04/07/23 08 Patient is laying in bed. She denies any current chest pain, shortness of breath, nausea, vomiting, diarrhea, constipation, weakness or fatigue. She did have the complaint of lack of appetite. She also seemed to know some orientation questions however, she would start off with the wrong answer then correct herself. 04/06/23? 21:29 ?This is an 82-year-old female with past medical history significant for hypertension, dementia.? Patient presents to the emergency room due to generalized weakness also had a fall the day before when she was getting up the toilet fell backwards? hitting her head but denied any loss of consciousness, has had poor per oral intake and generalized malaise, denies any fevers, rigors, chills, cough, sputum production. preliminary workup was significant for urinalysis with numerous WBCs present, comprehensive metabolic profile showed a bilirubin of 2.1, sodium 133. Review of Systems Review of Systems: All systems reviewed & are unremarkable except as noted in HPI and below Exam Narrative: General: well-nourished, well-appearing 82-year-old female, laying in bed, comfortable, NARD Neuro: awake, alert and oriented x4, speech clear, no focal neuro deficits noted HEENMT: normoce
[2023-04-07 09:58] VITALS: PULSE 70
[2023-04-07] MEDS: atenoloL 50 MG TABLET PO (09:58)
[2023-04-07] MEDS: SERTRALINE HCL 25 MG TABLET PO (09:58)
[2023-04-07] MEDS: POTASSIUM CHLORIDE 20 MEQ TABLET.ER PO (09:58)
[2023-04-07] MEDS: ENOXAPARIN 40 MG/0.4 ML SYRINGE SUB-Q (09:59)
[2023-04-07 12:03] VITALS: BMI 17.2
[2023-04-07 14:00] VITALS: BP 125/50; PULSE 57; RESP 16; TEMP 36.6; O2SAT 99
[2023-04-07 19:59] VITALS: BP 115/45; PULSE 58; RESP 18; TEMP 37; O2SAT 94
[2023-04-07 20:00] VITALS: PULSE 58; RESP 18; O2SAT 94
[2023-04-07] MEDS: DONEPEZIL HCL 5 MG TABLET PO (20:08)
[2023-04-08 04:43] VITALS: BP 121/47; PULSE 56; RESP 16; TEMP 36.6; O2SAT 93
[2023-04-08] MEDS: LACTATED RINGERS 1,000 ML 75 ML IV CONT (04:57)
[2023-04-08 05:54] LABS: Basophils Percent Auto 0.6 % (0.2-1.2); Eosinophils Percent Auto 0.8 % (0-4.4); Hematocrit 30.5 % (37.0-47.0); Hemoglobin 10.2 g/dL (12.0-15.0); Immature Granulocyte Absolute 0.01 K/mm3 (0.00-0.031); Immature Granulocyte Percent A 0.2 % (0-0.5); Lymphocytes Absolute Auto 0.54 K/mm3 (0.9-3.2); Lymphocytes Percent Auto 11.1 % (18.3-44.2); Mean Corpuscular HGB Conc 33.4 g/dl (32-36); Mean Corpuscular Hemoglobin 29.2 pg (26-34); Mean Corpuscular Volume 87.4 fl (80-100); Monocytes Absolute Auto 0.6 K/mm3 (0.1-0.6); Monocytes Percent Auto 11.3 % (2.6-8.5); Neutrophils Absolute Auto 3.7 K/mm3 (1.3-6.7); Platelet Count Result 152 k/mm3 (150-375); Red Blood Count 3.49 M/mm3 (4.2-5.4); Red Cell Distribution Width 13.5 % (11.5-14.5); White Blood Count 4.9 K/mm3 (4.5-10.0)
[2023-04-08 06:01] LABS: Alanine Aminotransferase 36 U/L (6-35); Alkaline Phosphatase 110 U/L (38-126); Anion Gap 3 mmol/L (8-16); Aspartate Amino Transferase 35 U/L (14-36); Bilirubin,Total 0.9 mg/dL (0.2-1.3); Blood Urea Nitrogen 16 mg/dL (7-17); Calcium 8.3 mg/dL (8.4-10.2); Carbon Dioxide 34 mmol/L (22-30); Chloride 98 mmol/L (98-107); Estimated CRCL calculation 33 ml/min; Estimated Glomerular Filt Rate > 60; Glucose 102 mg/dL (65-110); Magnesium 1.7 mg/dL (1.6-2.3); Potassium 2.9 mmol/L (3.4-5.0); Sodium 135 mmol/L (137-145)
[2023-04-08] MEDS: MAGNESIUM SULF 2 GM/WATER 50ML 2 GM/50 ML BAG IVPB (09:21)
[2023-04-08] MEDS: POTASSIUM CHLORIDE 20 MEQ TABLET 80 MEQ PO (09:23)
[2023-04-08] MEDS: ENOXAPARIN 40 MG/0.4 ML SYRINGE SUB-Q (09:24)
[2023-04-08] MEDS: SERTRALINE HCL 25 MG TABLET PO (09:24)
[2023-04-08 09:25] VITALS: PULSE 65
[2023-04-08] MEDS: atenoloL 50 MG TABLET PO (09:25)
--- NOTE | 2023-04-08 10:45 | P.PNIM_ITS ---
Progress Note: A&P Assessment and Plan (1) Acute UTI: Code(s): N39.0 - Urinary tract infection, site not specified Status: Acute Assessment and Plan: * UA appears infectious with many leukocyte esterase, WBC >100, 4+ bacteria * Continue ceftriaxone for now * Still Awaiting urine cultures * Adjust therapy to culture results (2) Acute hypokalemia: Code(s): E87.6 - Hypokalemia Status: Acute Assessment and Plan: * K noted to be 2.9 upon admission, 2.9 again today * Replaced with 80meq repeated * Trend potassium * replace as indicated (3) Generalized weakness: Code(s): R53.1 - Weakness Status: Acute Assessment and Plan: * Notable UTI, per UA results * PT/OT ordered * Most likely related to infectious process * Fall precautions (4) Fall: Qualifiers: Encounter type: initial encounter Qualified Code(s): W19.XXXA - Unspecified fall, initial encounter Code(s): W19.XXXA - Unspecified fall, initial encounter Status: Acute Assessment and Plan: * Reports getting up the toilet fell backwards? 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9 - Acute kidney failure, unspecified Status: Acute Assessment and Plan: * BUN noted to be elevated at 21 most likely related to dehydration * BUN is better today at 16 * IV fluids given in the ED * Trend labs * Adjust therapy as indicated * Encourage PO intake * Continue LR at 75ml/hr, DC at this time (7) Severe protein-calorie malnutrition: Code(s): E43 - Unspecified severe protein-calorie malnutrition Status: Acute Assessment and Plan: * Reports lack of appetite, 13 lb unintentional weight loss since November, reported many missed meals, BMI 17.3 * Pourer Off consult * Encourage PO intake * Supplements added * Regular diet Time Spent With Patient Time: 41 minutes Time with patient: Greater than 35 minutes Subjective Date/time seen: 04/08/231044 Interval history: 04/08/231044 patient is very agitated today. She denies any current chest pain, shortness a breath, nausea, vomiting, diarrhea constipation. She is having urgency and frequency with urination. Spoke to her son as nursing stated that the patient's son had some concerns of her admission. Explained to him about the potassium b eimaria alejandra low which she stated that she is already on potassium supplementation however over the last 2 days or so she has received about 200-250 mEq of potassium. Son stated that he was going to go talk t
--- NOTE | 2023-04-08 10:45 | PM.IMPN ---
Progress Note: A&P Assessment and Plan (1) Acute UTI: Code(s): N39.0 - Urinary tract infection, site not specified Status: Acute Assessment and Plan: UA appears infectious with many leukocyte esterase, WBC >100, 4+ bacteria Continue ceftriaxone for now Still Awaiting urine cultures Adjust therapy to culture results (2) Acute hypokalemia: Code(s): E87.6 - Hypokalemia Status: Acute Assessment and Plan: K noted to be 2.9 upon admission, 2.9 again today Replaced with 80meq repeated Trend potassium replace as indicated (3) Generalized weakness: Code(s): R53.1 - Weakness Status: Acute Assessment and Plan: Notable UTI, per UA results PT/OT ordered Most likely related to infectious process Fall precautions (4) Fall: Qualifiers: Encounter type: initial encounter Qualified Code(s): W19.XXXA - Unspecified fall, initial encounter Code(s): W19.XXXA - Unspecified fall, initial encounter Status: Acute Assessment and Plan: Reports getting up the toilet fell backwards? 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, no acute changes Cervical CT mild cervical spondylosis with moderate to severe uncovertebral and facet OA Pelvis xray shows no fracture Probably related to UTI infection (5) HTN (hypertension): Qualifiers: Hypertension type: primary hypertension Qualified Code(s): I10 - Essential (primary) hypertension Code(s): I10 - Essential (primary) hypertension Status: Acute Assessment and Plan: BP is 149/49 Continue atenolol 50mg PO daily Hold chlorthalidone with related CLIFF and findings of dehydration Trend BP Adjust therapy as indicated (6) CLIFF (acute kidney injury): Code(s): N17.9 - Acute kidney failure, unspecified Status: Acute Assessment and Plan: BUN noted to be elevated at 21 most likely related to dehydration BUN is better today at 16 IV fluids given in the ED Trend labs Adjust therapy as indicated Encourage PO intake Continue LR at 75ml/hr, DC at this time (7) Severe protein-calorie malnutrition: Code(s): E43 - Unspecified severe protein-calorie malnutrition Status: Acute Assessment and Plan: Reports lack of appetite, 13 lb unintentional weight loss since November, reported many missed meals, BMI 17.3 Interline Clerk consult Encourage PO intake Supplements added Regular diet Time Spent With Patient Time: 41 minutes Time with patient: Greater than 35 minutes Subjective Date/time seen: 04/08/23 1045 Interval history: 04/08/23 104 patient is very agitated today. She denies any current chest pain, shortness a breath, nausea, vomiting, diarrhea constipation. She is having urgency and frequency with urination. Spoke to her son as nursing stated that the patient's son had some concerns of her admission. Explained to him about the potassium being low which she stated that she is already on potassium supplementation however over the last 2 days or so she has received about 200-250 mEq of potassium. Son stated that he was going to go talk to Dr. Gaviria. which I did encourage is they could follow the case. Patient is currently stable at this time still awaiting urine culture results. 04/07/23 0800 Patient is laying in bed. She denies any current chest pain, shortness of breath, nausea, vomiting, diarrhea, constipation, weakness or fatigue. She did have the complaint of lack of appetite. She also seemed to know some orientation questions however, she would start off with the wrong answer then correct herself. 04/06/23? 21:29 ?This is an 82-year-old female with past medical history significant for hypertension, dementia.? Patient presents to the emergency
[2023-04-08] MEDS: LOPERAMIDE HCL 2 MG CAPSULE 4 MG PO (14:15)
[2023-04-08 14:49] VITALS: BP 149/49; PULSE 55; RESP 18; TEMP 36.2; O2SAT 96
[2023-04-08 20:51] VITALS: BP 102/48; PULSE 61; RESP 18; TEMP 36.2; O2SAT 94
[2023-04-08] MEDS: CLORAZEPATE DIPOTASSIUM (*CRX) 3.75 MG TABLET PO (20:55)
[2023-04-08] MEDS: DONEPEZIL HCL 5 MG TABLET PO (20:55)
[2023-04-09 04:12] VITALS: BP 126/56; PULSE 56; RESP 16; TEMP 36.6; O2SAT 97
[2023-04-09 07:38] LABS: Basophils Percent Auto 0.3 % (0.2-1.2); Eosinophils Absolute Auto 0.1 K/mm3 (0-0.3); Eosinophils Percent Auto 2.1 % (0-4.4); Hematocrit 30.8 % (37.0-47.0); Hemoglobin 10.1 g/dL (12.0-15.0); Immature Granulocyte Absolute 0.01 K/mm3 (0.00-0.031); Immature Granulocyte Percent A 0.3 % (0-0.5); Lymphocytes Absolute Auto 0.66 K/mm3 (0.9-3.2); Lymphocytes Percent Auto 17.4 % (18.3-44.2); Mean Corpuscular HGB Conc 32.8 g/dl (32-36); Mean Corpuscular Hemoglobin 28.5 pg (26-34); Mean Platelet Volume 9.6 fl (7.4-10.4); Monocytes Absolute Auto 0.6 K/mm3 (0.1-0.6); Monocytes Percent Auto 14.8 % (2.6-8.5); Neutrophils Absolute Auto 2.5 K/mm3 (1.3-6.7); Neutrophils Percent Auto 65.1 % (45.5-73.1); Platelet Count Result 155 k/mm3 (150-375); Red Blood Count 3.54 M/mm3 (4.2-5.4); Red Cell Distribution Width 13.5 % (11.5-14.5); White Blood Count 3.8 K/mm3 (4.5-10.0)
[2023-04-09 07:49] LABS: Alanine Aminotransferase 32 U/L (6-35); Albumin Level 3.1 g/dL (3.5-5.1); Alkaline Phosphatase 112 U/L (38-126); Anion Gap 2 mmol/L (8-16); Aspartate Amino Transferase 27 U/L (14-36); Bilirubin,Total 0.6 mg/dL (0.2-1.3); Blood Urea Nitrogen 13 mg/dL (7-17); Calcium 8.4 mg/dL (8.4-10.2); Carbon Dioxide 34 mmol/L (22-30); Chloride 101 mmol/L (98-107); Estimated CRCL calculation 38 ml/min; Estimated Glomerular Filt Rate > 60; Glucose 98 mg/dL (65-110); Magnesium 2.1 mg/dL (1.6-2.3); Potassium 3.5 mmol/L (3.4-5.0); Sodium 137 mmol/L (137-145)
[2023-04-09 09:16] VITALS: PULSE 60
[2023-04-09] MEDS: SERTRALINE HCL 25 MG TABLET PO (09:16)
[2023-04-09] MEDS: POTASSIUM CHLORIDE 20 MEQ TABLET.ER PO (09:16)
[2023-04-09] MEDS: atenoloL 50 MG TABLET PO (09:16)
[2023-04-09] MEDS: ENOXAPARIN 40 MG/0.4 ML SYRINGE SUB-Q (09:18)
--- NOTE | 2023-04-09 10:15 | P.DS_ITS ---
DS: Admitting Diagnosis Discharge Date 04/09/23 1015 Admitting Diagnosis Acute UTI, acute hypokalemia, fall DS: Discharge Diagnosis Discharge Diagnosis (1) Acute UTI: Code(s): N39.0 - Urinary tract infection, site not specified Status: Acute Assessment and Plan: * UA appears infectious with many leukocyte esterase, WBC >100, 4+ bacteria * Continue ceftriaxone for now * E coli was grown in the cultures * change ceftriaxone to cefdinir * Adjust therapy to culture results (2) Acute hypokalemia: Code(s): E87.6 - Hypokalemia Status: Acute Assessment and Plan: * K noted to be 2.9 upon admission, 3.5 * Replaced with 80meq repeated * Trend potassium * replace as indicated (3) Generalized weakness: Code(s): R53.1 - Weakness Status: Acute Assessment and Plan: * Notable UTI, per UA results * PT/OT ordered * Most likely related to infectious process * Fall precautions (4) Fall: Qualifiers: Encounter type: initial encounter Qualified Code(s): W19.XXXA - Unspecified fall, initial encounter Code(s): W19.XXXA - Unspecified fall, initial encounter Status: Acute Assessment and Plan: * Reports getting up the toilet fell backwards? 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9 - Acute kidney failure, unspecified Status: Acute Assessment and Plan: * BUN noted to be elevated at 21 most likely related to dehydration * BUN is better today at 13 * IV fluids given in the ED * Trend labs * Adjust therapy as indicated * Encourage PO intake * Continue LR at 75ml/hr, DC at this time (7) Severe protein-calorie malnutrition: Code(s): E43 - Unspecified severe protein-calorie malnutrition Status: Acute Assessment and Plan: * Reports lack of appetite, 13 lb unintentional weight loss since November, reported many missed meals, BMI 17.3 * Warehouse Technician consult * Encourage PO intake * Supplements added * Regular diet DS: Summary Hospital Course Hospital Course: patient 82-year-old female with past medical history for hypotension, dementia who presented to the ED with complaints of generalized weakness and falls. Patient did hit her head the last time she fell however CT of the head was no acute findings. Cervical CT showed mild cervical spondylosis pelvis x-ray showed no fracture. UA did appear infectious in cultures did grow E coli. Patient was given IV ceftriaxone which will be changed to p.o. cefdinir. Patient also was found to have a low pota
--- NOTE | 2023-04-09 10:15 | PM.DS ---
DS: Admitting Diagnosis Discharge Date 04/09/23 1015 Admitting Diagnosis Acute UTI, acute hypokalemia, fall DS: Discharge Diagnosis Discharge Diagnosis (1) Acute UTI: Code(s): N39.0 - Urinary tract infection, site not specified Status: Acute Assessment and Plan: UA appears infectious with many leukocyte esterase, WBC >100, 4+ bacteria Continue ceftriaxone for now E coli was grown in the cultures change ceftriaxone to cefdinir Adjust therapy to culture results (2) Acute hypokalemia: Code(s): E87.6 - Hypokalemia Status: Acute Assessment and Plan: K noted to be 2.9 upon admission, 3.5 Replaced with 80meq repeated Trend potassium replace as indicated (3) Generalized weakness: Code(s): R53.1 - Weakness Status: Acute Assessment and Plan: Notable UTI, per UA results PT/OT ordered Most likely related to infectious process Fall precautions (4) Fall: Qualifiers: Encounter type: initial encounter Qualified Code(s): W19.XXXA - Unspecified fall, initial encounter Code(s): W19.XXXA - Unspecified fall, initial encounter Status: Acute Assessment and Plan: Reports getting up the toilet fell backwards? 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, no acute changes Cervical CT mild cervical spondylosis with moderate to severe uncovertebral and facet OA Pelvis xray shows no fracture Probably related to UTI infection (5) HTN (hypertension): Qualifiers: Hypertension type: primary hypertension Qualified Code(s): I10 - Essential (primary) hypertension Code(s): I10 - Essential (primary) hypertension Status: Acute Assessment and Plan: BP is 126/56 Continue atenolol 50mg PO daily Hold chlorthalidone with related CLIFF and findings of dehydration Trend BP Adjust therapy as indicated (6) CLIFF (acute kidney injury): Code(s): N17.9 - Acute kidney failure, unspecified Status: Acute Assessment and Plan: BUN noted to be elevated at 21 most likely related to dehydration BUN is better today at 13 IV fluids given in the ED Trend labs Adjust therapy as indicated Encourage PO intake Continue LR at 75ml/hr, DC at this time (7) Severe protein-calorie malnutrition: Code(s): E43 - Unspecified severe protein-calorie malnutrition Status: Acute Assessment and Plan: Reports lack of appetite, 13 lb unintentional weight loss since November, reported many missed meals, BMI 17.3 Hvac Residential Service Technician consult Encourage PO intake Supplements added Regular diet DS: Summary Hospital Course Hospital Course: patient 82-year-old female with past medical history for hypotension, dementia who presented to the ED with complaints of generalized weakness and falls. Patient did hit her head the last time she fell however CT of the head was no acute findings. Cervical CT showed mild cervical spondylosis pelvis x-ray showed no fracture. UA did appear infectious in cultures did grow E coli. Patient was given IV ceftriaxone which will be changed to p.o. cefdinir. Patient also was found to have a low potassium of 2.9 and was given 120 mcg and labs came back to 2.9 again. And another 80 mEq was given. Currently potassium is 3.5. Instructed patient to increase her potassium to 40 mEq daily and have her labs checked on Tuesday. Patient stated that she feels some better. She is stable on her feet. She denies any urgency, frequency, pain or burning at this time. Patient did state that she feels safe to go home and back to her baseline. A mini-mental status exam was done and patient did score 28/30. Patient does exhibit severe protein calorie malnutrition with a lack of appetite, and a large weight loss unintentional. Supplemen
== END 2023-04-09 14:00 | disposition home or self-care (01) ==
LOC: ANHED 22:05 → ANH3MED 04-07 00:52
PROVIDERS: Emergency Medicine; Nurse Practitioner; Admitting Provider Internal Medicine; Emergency Provider Emergency Medicine; PCP Family Medicine; Visit Provider Chiropractor
DX: N39.0 Urinary tract infection, site not specified (principal); B96.20 Unspecified Escherichia coli [E. coli] as the cause of diseases classified elsewhere; E87.6 Hypokalemia; R53.1 Weakness; S00.83XA Contusion of other part of head, initial encounter; W19.XXXA Unspecified fall, initial encounter; I10 Essential (primary) hypertension; N17.9 Acute kidney failure, unspecified; E43 Unspecified severe protein-calorie malnutrition; E86.0 Dehydration; M47.812 Spondylosis without myelopathy or radiculopathy, cervical region; J98.11 Atelectasis; R11.0 Nausea; R63.0 Anorexia; Z68.1 Body mass index [BMI] 19.9 or less, adult; R94.31 Abnormal electrocardiogram [ECG] [EKG]; G31.84 Mild cognitive impairment of uncertain or unknown etiology; Z85.038 Personal history of other malignant neoplasm of large intestine; Z86.73 Personal history of transient ischemic attack (TIA), and cerebral infarction without residual deficits; Z79.899 Other long term (current) drug therapy; Z80.0 Family history of malignant neoplasm of digestive organs
CPT/HCPCS: 36415; 70450; 71045; 72125; 72170; 80053; 81001; 83690; 83735; 85025; 85055; 87077; 87086; 87186; 93005; 96361; 96372; 96374; 96375; 97161; 97165; 97530; 97535; 99285; A9270; G0378; J0696; J1650; J2405; J3475; J7030; J7120

== ENCOUNTER 2023-04-13 15:10 | Outpatient (CLI) | payer MEDICARE, SELFPAY ==
[2023-04-13 15:51] LABS: Alanine Aminotransferase 32 U/L (6-35); Albumin Level 4.4 g/dL (3.5-5.1); Alkaline Phosphatase 96 U/L (38-126); Anion Gap 7 mmol/L (8-16); Aspartate Amino Transferase 29 U/L (14-36); Bilirubin,Total 0.7 mg/dL (0.2-1.3); Blood Urea Nitrogen 11 mg/dL (7-17); Calcium 9.9 mg/dL (8.4-10.2); Carbon Dioxide 33 mmol/L (22-30); Chloride 102 mmol/L (98-107); Estimated Glomerular Filt Rate > 60; Glucose 75 mg/dL (65-110); Potassium 5.5 mmol/L (3.4-5.0); Sodium 142 mmol/L (137-145)
== END 2023-04-13 15:11 | disposition home or self-care (01) ==
PROVIDERS: PCP Family Medicine; Visit Provider Nurse Practitioner
DX: E87.6 Hypokalemia (principal); N17.9 Acute kidney failure, unspecified
CPT/HCPCS: 36415; 80053

== ENCOUNTER 2023-05-10 11:26 | Outpatient (CLI) | payer MEDICARE, SELFPAY ==
[2023-05-10 12:15] LABS: Appearance Urine Cloudy (Clear); Bacteria Urine 1+ /hpf; Bilirubin Urine Negative (Negative); Blood Urine Negative (Negative); Color Urine Yellow (Yellow); Glucose Urine UA Negative (Negative); Ketones Urine Negative (Negative); Leukocyte Esterase Ur 3+ LEU/UL (NEGATIVE); Nitrate Urine Negative (Negative); Non Pathogenic Casts 0-2; Protein Urine Negative (Negative); RBC Urine 0-2 /hpf (0-2); Specific Grav Ur 1.011 (1.001-1.035); Squamous Epithelial Cell Urine None seen /hpf (Few); Urobilinogen Urine 0.2 mg/dL (<2.0); WBC Urine >100 /hpf (0-3); pH Urine 7.5 (5.0-9.0)
[2023-05-10 12:17] LABS: Add Urine Microscopic? YES
== END 2023-05-10 11:27 | disposition home or self-care (01) ==
LOC: ANHLAB 11:27
PROVIDERS: PCP Family Medicine; Visit Provider Physician Assistant
DX: N39.0 Urinary tract infection, site not specified (principal); R30.0 Dysuria
CPT/HCPCS: 81001; 87077; 87086; 87186

== ENCOUNTER 2023-06-02 15:11 | Outpatient (CLI) | payer MEDICARE, SELFPAY | END 2023-06-02 15:12 | disposition home or self-care (01) | PROVIDERS: PCP Family Medicine; Visit Provider Physician Assistant | DX: N39.0 Urinary tract infection, site not specified (principal) | CPT/HCPCS: 87077; 87086; 87186 ==

== ENCOUNTER 2023-06-24 15:12 | Emergency (ER) | payer MEDICARE, SELFPAY ==
[2023-06-24] VITALS (7 sets, daily range): BP systolic 105–159; BP diastolic 43–66; PULSE 51–69; RESP 12–18; TEMP 36.6; O2SAT 92–100
--- NOTE | ~2023-06-24 | XR_ITS ---
EXAMINATION: XR chest 2V DATE: 06/24/2023 15:50 INDICATION: Weakness TECHNIQUE: PA and lateral views of the chest were obtained. COMPARISON: Chest radiograph dated 04/06/2023 FINDINGS: No change in chronic discoid atelectasis/scarring at the lingula. Couple unchanged small calcified no dules in the lower lungs consistent with old granulomatous disease. Additional costochondral calcific a cyst project over the needle aspiration of the mid and lower lungs on the frontal projection. No n ew airspace opacities, pulmonary edema, pleural effusion or pneumothorax. The cardiomediastinal silho uette is normal. Moderate thoracic spondylosis. Cholecystectomy clips in right upper quadrant. IMPRESSION: 1. 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 No acute cardiopulmonary disease. Reviewed, dictated and finalized at location A. IMPRESSION: 1. 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 No acute cardiopulmonar y disease.
--- NOTE | 2023-06-24 15:25 | ECG_ITS ---
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
[2023-06-24 15:33] LABS: Basophils Percent Auto 0.3 % (0.2-1.2); Eosinophils Absolute Auto 0.1 K/mm3 (0-0.3); Eosinophils Percent Auto 1.7 % (0-4.4); Hematocrit 34.6 % (37.0-47.0); Hemoglobin 11.1 g/dL (12.0-15.0); Immature Granulocyte Absolute 0.02 K/mm3 (0.00-0.031); Immature Granulocyte Percent A 0.3 % (0-0.5); Lymphocytes Absolute Auto 0.79 K/mm3 (0.9-3.2); Lymphocytes Percent Auto 13.4 % (18.3-44.2); Mean Corpuscular HGB Conc 32.1 g/dl (32-36); Mean Corpuscular Hemoglobin 28.2 pg (26-34); Mean Corpuscular Volume 87.8 fl (80-100); Mean Platelet Volume 9.1 fl (7.4-10.4); Monocytes Absolute Auto 0.3 K/mm3 (0.1-0.6); Monocytes Percent Auto 5.8 % (2.6-8.5); Neutrophils Absolute Auto 4.6 K/mm3 (1.3-6.7); Neutrophils Percent Auto 78.5 % (45.5-73.1); Platelet Count Result 199 k/mm3 (150-375); Red Blood Count 3.94 M/mm3 (4.2-5.4); Red Cell Distribution Width 14.6 % (11.5-14.5); White Blood Count 5.9 K/mm3 (4.5-10.0)
[2023-06-24 15:43] LABS: Alanine Aminotransferase 26 U/L (6-35); Albumin Level 3.7 g/dL (3.5-5.1); Alkaline Phosphatase 64 U/L (38-126); Anion Gap 5 mmol/L (8-16); Aspartate Amino Transferase 29 U/L (14-36); Bilirubin,Total 0.7 mg/dL (0.2-1.3); Blood Urea Nitrogen 16 mg/dL (7-17); Calcium 9.4 mg/dL (8.4-10.2); Carbon Dioxide 30 mmol/L (22-30); Chloride 100 mmol/L (98-107); Estimated Glomerular Filt Rate 60; Glucose 125 mg/dL (65-110); Potassium 3.9 mmol/L (3.4-5.0); Sodium 135 mmol/L (137-145)
[2023-06-24 17:24] LABS: Appearance Urine Clear (Clear); Bacteria Urine None Seen /hpf; Bilirubin Urine Negative (Negative); Blood Urine Negative (Negative); Color Urine Yellow (Yellow); Glucose Urine UA Negative (Negative); Ketones Urine Negative (Negative); Leukocyte Esterase Ur Trace LEU/UL (Negative); Nitrate Urine Negative (Negative); Non Pathogenic Casts 0-2; Protein Urine Negative (Negative); RBC Urine 0-2 /hpf (0-2); Specific Grav Ur 1.015 (1.001-1.035); Squamous Epithelial Cell Urine None seen /hpf (Few); WBC Urine 0-5 /hpf; pH Urine 7.5 (5.0-9.0)
[2023-06-24 17:25] LABS: Add Urine Microscopic? YES
[2023-06-24] MEDS: SODIUM CHLORIDE 0.9% IV 1,000 ML 999 ML IV CONT (17:34)
--- NOTE | 2023-06-24 17:48 | ED.WEAKNESS ---
HPI - Weakness General Chief complaint: Weakness Stated complaint: Weakness, Possible Dehydration Time Seen by Provider: 06/24/23 17:12 Source: family (son) Mode of arrival: ambulatory Limitations: no limitations History of Present Illness HPI Narrative: Patient is a very pleasant 83-year-old female who presents emergency department today ambulatory for concerns of being dehydrated by her son. Patient states that she feels fine. Patient states that she has issues with getting enough water throughout the day and dehydration. Patient states that she recently treated for UTI finished antibiotics is not having any urinary symptoms. She denies any recent illness. Denies any chest pain, shortness a breath, headache, fever, chills, nausea, vomiting, diarrhea, numbness or tingling to upper lower extremities, visual disturbances, recent falls, or any other symptoms. Patient states she lives at home and gets around without any type of assistive device. Related Data Home Medications Medication Instructions Recorded Confirmed atenolol 50 mg-chlorthalidone 25 1 tablet PO DAILY 06/22/21 06/01/23 mg tablet diphenhydramine HCl 25 mg capsule 25 mg PO HS PRN Insomnia 04/07/23 06/01/23 (Benadryl) Allergies Allergy/AdvReac Type Severity Reaction Status Date / Time latex Allergy Hives Verified 06/01/23 14:29 Review of Systems Review of Systems: CONSTITUTIONAL: Denies fever, chills, or sweats.+Decreased oral intake. EYES: Denies visual changes, redness, or discharge. ENT: Denies rhinorrhea, congestion, sore throat, or otalgia. CARDIOVASCULAR: Denies chest pain, palpitations, or edema. RESPIRATORY: Denies cough or dyspnea. GASTROINTESTINAL: Denies abdominal pain, nausea, vomiting, or diarrhea. GENITOURINARY: Denies dysuria or hematuria. SKIN: Denies rash or itching. MUSCULOSKELETAL: Denies back pain, joint pain, or myalgia. NEUROLOGIC: Denies headache, numbness, or weakness. PSYCHIATRIC: Denies anxiety or depression. All systems reviewed & are unremarkable except as noted in HPI and below PMFSH Past Medical History Medical History History of colon cancer Mild cognitive impairment Surgical History Surgical History H/O partial resection of colon History of cholecystectomy Family History Family History Father Carcinoma of colon Social History Social History Smoking status: Never smoker Second hand tobacco smoke exposure: No Alcohol intake: never Substance use: never Lack of Transportation: No Lack of Food: Never True Current Housing: I Have Housing Concerned About Future Housing: No Difficulty Paying Gas/Electric Bills: No Difficulty Paying for Meds: No Currently Unemployed: No Education: High School Diploma/GED Difficulty w/ Childcare or Family Care: No Living arrangements: with family Occupation/Education: retired Gender identity (if verbalized by the patient): Female Sexual Orientation (if Verbalized by the Patient): Straight or Heterosexual Spiritual care concerns: No Exam Narrative: GENERAL: pleasant elderly female resting on exam strestcher, Well-appearing, well-nourished, and in no acute distress. HEAD: Normocephalic, atraumatic. EYES: PERRLA and EOMI. ENT: Nares clear, no rhinorrhea or epistaxis. Mucous membranes moist, there is mild tremble of her lips at times. NECK: Supple. CHEST: Clear to auscultation. No respiratory distress. HEART: Regular rate and rhythm. No murmur heard. Normal peripheral pulses. ABDOMEN: Soft, nontender, nondistended, normal active bowel sounds. EXTREMITIES: Normal range of motion. No edema. SKIN: Warm, dry, no rash. NEURO: No focal deficits. Alert and oriented x3. PSYCH: Normal mood and affect. Course Reevaluation(
== END 2023-06-24 20:19 | disposition home or self-care (01) ==
PROVIDERS: Emergency Medicine; Emergency Provider Nurse Practitioner; PCP Family Medicine
DX: R53.1 Weakness (principal); R63.8 Other symptoms and signs concerning food and fluid intake; Z90.49 Acquired absence of other specified parts of digestive tract; Z85.038 Personal history of other malignant neoplasm of large intestine; R00.1 Bradycardia, unspecified; R94.31 Abnormal electrocardiogram [ECG] [EKG]
CPT/HCPCS: 36415; 71046; 80053; 81001; 85025; 93005; 96360; 99283; J7030

== ENCOUNTER 2023-07-18 15:57 | Outpatient (CLI) | payer MEDICARE, SELFPAY ==
[2023-07-18 18:03] LABS: Appearance Urine Clear (Clear); Bilirubin Urine Negative (Negative); Blood Urine Negative (Negative); Color Urine Yellow (Yellow); Glucose Urine UA Negative (Negative); Ketones Urine Negative (Negative); Leukocyte Esterase Ur Negative LEU/UL (NEGATIVE); Nitrate Urine Negative (Negative); Protein Urine Negative (Negative); Specific Grav Ur 1.018 (1.001-1.035); pH Urine 8.5 (5.0-9.0)
[2023-07-18 18:23] LABS: Add Urine Microscopic? NO
== END 2023-07-18 15:58 | disposition home or self-care (01) ==
LOC: ANHLAB 15:59
PROVIDERS: PCP Family Medicine; Visit Provider Family Medicine
DX: N39.0 Urinary tract infection, site not specified (principal); R30.0 Dysuria
CPT/HCPCS: 81003; 87086; 87088

== ENCOUNTER 2023-08-08 13:43 | Outpatient (CLI) | payer MEDICARE, SELFPAY ==
[2023-08-08 14:13] LABS: Appearance Urine Cloudy (Clear); Bacteria Urine None Seen /hpf; Bilirubin Urine Negative (Negative); Blood Urine 2+ (Negative); Color Urine Yellow (Yellow); Glucose Urine UA Negative (Negative); Ketones Urine Negative (Negative); Leukocyte Esterase Ur 3+ LEU/UL (NEGATIVE); Nitrate Urine Negative (Negative); Non Pathogenic Casts 0-2; Protein Urine 2+ mg/dL (Negative); RBC Urine 21-50 /hpf (0-2); Specific Grav Ur 1.012 (1.001-1.035); Squamous Epithelial Cell Urine None seen /hpf (Few); Urobilinogen Urine 0.2 mg/dL (<2.0); WBC Urine >100 /hpf (0-3)
[2023-08-08 14:20] LABS: Add Urine Microscopic? YES
== END 2023-08-08 13:44 | disposition home or self-care (01) ==
PROVIDERS: PCP Family Medicine; Visit Provider Physician Assistant
DX: N39.0 Urinary tract infection, site not specified (principal); R30.0 Dysuria
CPT/HCPCS: 81001; 87077; 87086; 87186

== ENCOUNTER → 2023-09-07 15:15 | Outpatient (CLI) | payer MEDICARE, SELFPAY ==
--- NOTE | ~2023-09-07 | XR_ITS ---
XR chest 2V DATE: 09/07/2023 15:48 INDICATION: Dyspnea TECHNIQUE: 2 views COMPARISON: 06/24/2023 2 view chest 09/05/2021 2 view chest FINDINGS: Heart size is borderline, with cardiothoracic ratio of 11.5/24.1. Bilateral hyperinflation. Chronic focal discoid scarring of lingula, present dating back to 09/05/2021. No pulmonary infiltrate or consolidation, pleural effusion or pulmonary vascular congestion or pneumo thorax is detected. No hilar or mediastinal enlargement. Diffuse osteopenia. IMPRESSION: Bilateral hyperinflation suggesting COPD Chronic discoid scarring, lingula, borderline heart size Osteopenia Reviewed, dictated and finalized at location B.
== END ==
PROVIDERS: PCP Family Medicine; Visit Provider Family Medicine
DX: R06.09 Other forms of dyspnea (principal); R91.8 Other nonspecific abnormal finding of lung field; M85.89 Other specified disorders of bone density and structure, multiple sites
CPT/HCPCS: 71046

== ENCOUNTER 2023-10-10 13:29 | Outpatient (CLI) | payer MEDICARE, SELFPAY ==
--- NOTE | 2023-10-15 22:27 | WPDPFTINT ---
PFT Procedure Performed PFT Procedure Performed Spirometry with Pre/Post Bronchodilator Plethysmography (Lung Vol) Diffusing Cap (DLCO) PFT Interpretation DOS: 10/10/2023 REQUESTING: Jean Gaviria MD REASON FOR TESTING: dyspnea PULMONARY FUNCTION TESTS Repeatability of spirometry FEV1 maneuver pre bronchodilator is Grade B. Repeatability of spirometry FEV1 maneuver post bronchodilator is Grade B. Spirometry: pre bronchodilator FEV1 is 1.29 L, 70% predicted, mildly decreased. Pre bronchodilator FVC is 1.81 L, 74% predicted, within the normal range. FEV1/FVC ratio is 71%, normal. After bronchodilator administration there is a 15% drop in the FEV1, 1.09 L, 59% predicted. After bronchodilator administration there is a 4% drop in the FVC, 1.75 L, 71% predicted. The FEV1/FVC ratio is 63%, low end of normal. Lung volumes: Total lung capacity is 4.30 L, 85%, normal. Residual volume is 2.48 L, 100% predicted, normal. RV/TLC ratio is 58%, normal range. The airway resistance is 2.14 cmH2O/L/sec, 178% predicted, increased. Diffusion: DLCO is 9.5, 50% predicted, moderately decreased. The DLCO / VA is 4.41, 109% predicted, normal. Flow volume loop: The flow volume loop is not reproducible. She had 3 attempts without reproducible findings. IMPRESSION: Mild decrease in FEV1 without airflow obstruction, normal lung volumes, moderate diffusion impairment which corrects for alveolar volume. There is a non-specific decrease in flows after bronchodilator administration. Clinical correlation is recommended. Ghazala Abreu MD
== END 2023-10-10 13:30 | disposition home or self-care (01) ==
LOC: ANHPFT 13:30
PROVIDERS: PCP Family Medicine; Visit Provider Family Medicine
DX: R06.09 Other forms of dyspnea (principal)
CPT/HCPCS: 94060; 94726; 94729

== ENCOUNTER 2023-11-02 15:46 | Emergency (ER) | payer MEDICARE, SELFPAY ==
[2023-11-02] VITALS (7 sets, daily range): BP systolic 148–183; BP diastolic 54–73; PULSE 51–66; RESP 12–16; TEMP 36.6; O2SAT 97–100
--- NOTE | ~2023-11-02 | XR_ITS ---
EXAMINATION: XR chest 1V portable Exam Date/Time: 11/02/2023 17:50 PERSONNEL ASSISTANT HISTORY: weakness Comparison: 09/07/2023. RESULT: Lines, tubes, and devices: None. Lungs and pleura: Emphysematous/senescent change. Lingular scar. No focal consolidation, pneumothora x, or pleural effusion. Cardiomediastinal silhouette: Stable. Other: No acute osseous or upper abdominal finding. IMPRESSION: No acute cardiopulmonary process. Reviewed, dictated and finalized at location K. ONNEL ASSISTANT
--- NOTE | 2023-11-02 17:45 | ECG_ITS ---
Measurements Intervals [place] Rate: 51 P: 95 VA: 200 QRS: -41 QRSD: 97 T: 53 QT: 452 QTc: 418 Interpretive Statements SINUS BRADYCARDIA INFERIOR MYOCARDIAL INFARCTION , PROBABLY OLD [40+ ms Q WAVE AND/OR ST/T ABNORMALITY IN II/aVF] ANTEROSEPTAL MYOCARDIAL INFARCTION , PROBABLY OLD [40+ ms Q WAVE IN V1-V4] ABNORMAL ECG COMPARED TO ECG 06/24/2023 15:31:55 NO SIGNIFICANT CHANGES Electronically Signed On 11-03-2023 13:52:07 [employer] ADMINISTRATOR by Scott Osorio M.D.
[2023-11-02 17:56] LABS: Basophils Percent Auto 0.4 % (0.2-1.2); Eosinophils Absolute Auto 0.1 K/mm3 (0-0.3); Eosinophils Percent Auto 0.7 % (0-4.4); Hematocrit 40.1 % (37.0-47.0); Hemoglobin 12.9 g/dL (12.0-15.0); Immature Granulocyte Absolute 0.01 K/mm3 (0.00-0.031); Immature Granulocyte Percent A 0.1 % (0-0.5); Lymphocytes Absolute Auto 1.07 K/mm3 (0.9-3.2); Lymphocytes Percent Auto 15.7 % (18.3-44.2); Mean Corpuscular HGB Conc 32.2 g/dl (32-36); Mean Corpuscular Hemoglobin 28.8 pg (26-34); Mean Corpuscular Volume 89.5 fl (80-100); Mean Platelet Volume 9.8 fl (7.4-10.4); Monocytes Absolute Auto 0.3 K/mm3 (0.1-0.6); Monocytes Percent Auto 4.6 % (2.6-8.5); Neutrophils Absolute Auto 5.3 K/mm3 (1.3-6.7); Neutrophils Percent Auto 78.5 % (45.5-73.1); Platelet Count Result 166 k/mm3 (150-375); Red Blood Count 4.48 M/mm3 (4.2-5.4); Red Cell Distribution Width 13.4 % (11.5-14.5); White Blood Count 6.8 K/mm3 (4.5-10.0)
[2023-11-02 17:59] LABS: Appearance Urine Clear (Clear); Bacteria Urine None Seen /hpf; Bilirubin Urine Negative (Negative); Blood Urine Negative (Negative); Color Urine Yellow (Yellow); Glucose Urine UA Negative (Negative); Ketones Urine Negative (Negative); Leukocyte Esterase Ur 2+ LEU/UL (Negative); Nitrate Urine Negative (Negative); Non Pathogenic Casts 0-2; Protein Urine Negative (Negative); RBC Urine 0-2 /hpf (0-2); Specific Grav Ur 1.005 (1.001-1.035); Squamous Epithelial Cell Urine None seen /hpf (Few); Urobilinogen Urine 0.2 mg/dL (<2.0); WBC Urine 21-50 /hpf; pH Urine 7.5 (5.0-9.0)
[2023-11-02 18:05] LABS: Add Urine Microscopic? YES
[2023-11-02 18:06] LABS: Alanine Aminotransferase 16 U/L (6-35); Albumin Level 4.6 g/dL (3.5-5.1); Alkaline Phosphatase 75 U/L (38-126); Anion Gap 6 mmol/L (8-16); Aspartate Amino Transferase 26 U/L (14-36); Bilirubin,Total 1.3 mg/dL (0.2-1.3); Blood Urea Nitrogen 16 mg/dL (7-17); Calcium 10.1 mg/dL (8.4-10.2); Carbon Dioxide 33 mmol/L (22-30); Chloride 100 mmol/L (98-107); Estimated CRCL calculation 32 ml/min; Estimated Glomerular Filt Rate > 60; Glucose 113 mg/dL (65-110); Potassium 3.7 mmol/L (3.4-5.0); Sodium 139 mmol/L (137-145)
--- NOTE | 2023-11-02 18:32 | ED.DIZZY ---
HPI - Dizziness General Chief Complaint: Dizziness Stated Complaint: dehydrated Time Seen by Provider: 11/02/23 17:37 History of Present Illness HPI Narrative: The patient is an 83-year-old female presenting with dizziness. Patient states that she feels like this whenever she gets dehydrated and sometimes with UTIs. States that she has a decreased appetite as she is getting older. She has also had a hemicolectomy and states that she often has diarrhea which makes her hesitant to eat much. Her family is at bedside and states that she has chronically poor p.o. intake. States that she has been feeling lightheaded for a couple of days. She denies any pain. No chest pain or shortness of breath. No cough or fevers. No abdominal pain, vomiting, dysuria, hematuria. No numbness or weakness. Denies vertigo. Related Data Home Medications Medication Instructions Recorded Confirmed atenolol 50 mg-chlorthalidone 25 1 tablet PO DAILY 06/22/21 09/07/23 mg tablet Allergies Allergy/AdvReac Type Severity Reaction Status Date / Time latex Allergy Hives Verified 09/07/23 14:21 Review of Systems Review of Systems: All systems reviewed & are unremarkable except as noted in HPI and below PMFSH Past Medical History Medical History History of colon cancer Mild cognitive impairment Surgical History Surgical History H/O partial resection of colon History of cholecystectomy Family History Family History Father Carcinoma of colon Social History Social History Social History: Caffeine- tea Smoking status: Never smoker Second hand tobacco smoke exposure: No Alcohol intake: never Substance use: never Substance use type: does not use Lack of Transportation: No Lack of Food: Never True Current Housing: I Have Housing Concerned About Future Housing: No Difficulty Paying Gas/Electric Bills: No Difficulty Paying for Meds: No Currently Unemployed: No Education: High School Diploma/GED Difficulty w/ Childcare or Family Care: No Living arrangements: with family Occupation/Education: retired Gender identity (if verbalized by the patient): Female Sexual Orientation (if Verbalized by the Patient): Straight or Heterosexual Spiritual care concerns: No Exam Narrative: GENERAL: Frail elderly female lying in bed in no acute distress HEAD: Normocephalic, atraumatic. EYES: PERRLA and EOMI. ENT: grossly unremarkable NECK: Supple. CHEST: Clear to auscultation. No respiratory distress. HEART: bradycardic, regular rhythm ABDOMEN: Soft, nontender, nondistended EXTREMITIES: Normal range of motion. No edema. SKIN: Warm, dry, no rash. NEURO: No focal deficits. Alert and oriented x3. PSYCH: Normal mood and affect. Course Vital Signs Vital signs: Vital Signs Temperature 98 F 11/02/23 16:15 Pulse Rate 55 L 11/02/23 16:15 Respiratory Rate 16 11/02/23 16:15 Blood Pressure 150/63 H 11/02/23 16:15 Pulse Oximetry 99 11/02/23 16:15 Temperature 98 F 11/02/23 16:15 Pulse Rate 52 L 11/02/23 21:08 Respiratory Rate 15 11/02/23 21:08 Blood Pressure 183/66 H 11/02/23 21:08 Pulse Oximetry 100 11/02/23 21:08 MDM - Dizziness MDM Narrative Medical decision making narrative: 83-year-old female presenting with concerns for dehydration and lightheadedness. Vitals are stable. Exam is unremarkable. UA is concerning for UTI. Plan for fluids, IV Rocephin. EKG per my interpretation shows sinus bradycardia, no ST elevations or depressions. unchanged from prior. Blood work without significant abnormalities. chest x-ray without acute abnormalities. Patient received IV fluids and antibiotics. Her orthostatic vitals are normal followi
[2023-11-02] MEDS: cefTRIAXone 2 GM/NS 100 ML 2 GM/100 ML BAG IVPB (18:48)
[2023-11-02] MEDS: SODIUM CHLORIDE 0.9% IV 1,000 ML 999 ML IV CONT (18:48)
--- NOTE | 2023-11-03 06:04 | PC.NURSE ---
On 11/02/2023 at 2055 pt was using ED restroom (to the right of room #15). It was heard by 2 registration clerks when pt fell in restroom. Pt was assisted up by staff, and taken back to her ED room #[address] Linder. Pt denies complaints, pt states I just tripped over my own feet, I do that all the time . Pt was discharged home shortly after.
== END 2023-11-02 21:56 | disposition home or self-care (01) ==
PROVIDERS: Emergency Provider Emergency Medicine; PCP Family Medicine
DX: N39.0 Urinary tract infection, site not specified (principal); E86.0 Dehydration; G31.84 Mild cognitive impairment of uncertain or unknown etiology; Z85.038 Personal history of other malignant neoplasm of large intestine; Z90.49 Acquired absence of other specified parts of digestive tract; R00.1 Bradycardia, unspecified; R94.31 Abnormal electrocardiogram [ECG] [EKG]
CPT/HCPCS: 36415; 71045; 80053; 81001; 85025; 87077; 87086; 87186; 93005; 96365; 99284; J0696; J7030

== ENCOUNTER 2024-04-17 15:43 | Observation (INO) | payer MEDICARE, SELFPAY ==
--- NOTE | ~2024-04-17 | XR_ITS ---
EXAMINATION: XR chest 2V Exam Date/Time: 04/17/2024 16:05 CDT HISTORY: weakness, CURRENTLY HAS UTI Comparison: 11/02/2023, 09/07/2023. RESULT: Lines, tubes, and devices: Cholecystectomy clips. Lungs and pleura: Senescent/emphysematous change. Lingular scar. No focal consolidation, pleural eff usion, or pneumothorax. Cardiomediastinal silhouette: Stable. Other: No acute osseous or upper abdominal finding. IMPRESSION: No acute cardiopulmonary process. Reviewed, dictated and finalized at location K.
--- NOTE | ~2024-04-17 | US_ITS ---
EXAMINATION: US carotid duplex BI DATE: 04/18/2024 11:43 INDICATION: Syncope. TECHNIQUE: Grayscale, color Doppler, and pulsed Doppler images of the cervical carotid arteries were obtained. The degree of vessel stenosis is placed in one of the following categories: normal, <50%, 5 0-69%, >=70% but less than near-occlusion, near-occlusion, or total occlusion. Note that percent sten osis relative to normal distal artery lumen diameter is indirectly measured from velocity measurement s as described by Maurice, et al. Radiology 2003; 229:340-346. COMPARISON: None. FINDINGS: RIGHT: The right common carotid artery (CCA) peak systolic velocity (PSV) is 62 cm/s. The right internal car otid artery (ICA) PSV is 68 cm/s. The right ICA end-diastolic velocity (EDV) is 18 cm/s. The right IC A/CCA PSV ratio is 1.1. Grayscale and color Doppler images yield an estimate of <50% diameter reducti on from plaque in the ICA. There is antegrade flow in the right vertebral artery. LEFT: The left CCA PSV is 63 cm/s. The left ICA PSV is 79 cm/s. The left ICA EDV is 22 cm/s. The left ICA/C CA PSV ratio is 1.3. Grayscale and color Doppler images yield an estimate of <50% diameter reduction from plaque in the ICA. There is antegrade flow in the left vertebral artery. IMPRESSION: 1. <50% stenosis in the right internal carotid artery. 2. <50% stenosis in the left internal carotid artery. Reviewed, dictated and finalized at location A.
--- NOTE | ~2024-04-17 | CT_ITS ---
EXAMINATION: CT brain wo con DATE: 04/17/2024 17:34 INDICATION: fall, weakness . TECHNIQUE: Computed tomography (CT) of the head was performed without intravenous contrast. The mA wa s adjusted according to patient size. Iterative reconstruction technique was employed. The dose-lengt h product was 605.33 mGy-cm. COMPARISON: 04/06/2023. FINDINGS: No acute intracranial hemorrhage or extra-axial fluid collection. No hydrocephalus, mass, or herniation. No acute ischemic infarct. Unremarkable dural venous sinus attenuation. No acute osseous abnormality. The aerated spaces are clear. Mild atrophy and chronic white matter change. Atherosclerotic intracranial calcification. Left inferi or frontal/insular and right posterior frontal and right insular encephalomalacia. Small old left adriano tiform nucleus lacunar infarcts. IMPRESSION: No acute intracranial process. Reviewed, dictated and finalized at location K.
[2024-04-17 15:43] VITALS: BP 147/63; PULSE 54; RESP 15; TEMP 36.4; O2SAT 98
[2024-04-17 15:54] VITALS: O2SAT 98
--- NOTE | 2024-04-17 15:56 | ECG_ITS ---
SEE SCANNED COPY FOR CONFIRMED REPORT MTDD
[2024-04-17 16:05] LABS: Basophils Percent Auto 0.7 % (0.2-1.2); Eosinophils Absolute Auto 0.1 K/mm3 (0-0.3); Eosinophils Percent Auto 3.1 % (0-4.4); Hemoglobin 12.5 g/dL (12.0-15.0); Lymphocytes Absolute Auto 0.47 K/mm3 (0.9-3.2); Lymphocytes Percent Auto 10.4 % (18.3-44.2); Mean Corpuscular HGB Conc 32.9 g/dl (32-36); Mean Corpuscular Hemoglobin 29.1 pg (26-34); Mean Corpuscular Volume 88.4 fl (80-100); Mean Platelet Volume 9.5 fl (7.4-10.4); Monocytes Absolute Auto 0.3 K/mm3 (0.1-0.6); Monocytes Percent Auto 6.8 % (2.6-8.5); Neutrophils Absolute Auto 3.6 K/mm3 (1.3-6.7); Platelet Count Result 150 k/mm3 (150-375); Red Cell Distribution Width 13.2 % (11.5-14.5); White Blood Count 4.5 K/mm3 (4.5-10.0)
[2024-04-17 16:15] LABS: Alanine Aminotransferase 15 U/L (6-35); Albumin Level 4.2 g/dL (3.5-5.1); Alkaline Phosphatase 71 U/L (38-126); Anion Gap 6 mmol/L (4-12); Aspartate Amino Transferase 28 U/L (14-36); Bilirubin,Total 1.2 mg/dL (0.2-1.3); Blood Urea Nitrogen 15 mg/dL (7-17); Calcium 9.8 mg/dL (8.4-10.2); Carbon Dioxide 33 mmol/L (22-30); Chloride 100 mmol/L (98-107); Estimated CRCL calculation 31 ml/min; Estimated Glomerular Filt Rate 60; Glucose 147 mg/dL (65-110); Potassium 3.6 mmol/L (3.4-5.0); Sodium 139 mmol/L (137-145)
[2024-04-17 17:17] VITALS: PULSE 52; RESP 17; O2SAT 100
--- NOTE | 2024-04-17 17:19 | ED.GENADULT ---
HPI - General Adult General Chief complaint: Weakness Stated complaint: weakness Time Seen by Provider: 04/17/24 15:52 History of Present Illness HPI narrative: [age] female presenting to the emergency department for evaluation for increased generalized weakness and a ground level fall. Patient has been getting treated for urinary tract infection since Tuesday. patient states live on her own. Family went to check on her today and patient had a unwitnessed fall and the bathroom. Patient did call for help after the fall. After the fall the family did assist the patient from the floor back to the swelling patient had a brief syncopal episode. EMS was called. By the time EMS arrived patient was back to her baseline. Patient denies any pain or injury patient reports she does feel increased weakness. Patient states she does have frequent falls. Family states that the patient does have history of dehydration and decreased p.o. intake Related Data Home Medications Medication Instructions Recorded Confirmed nitrofurantoin 1 mg PO DAILY 04/17/24 04/17/24 monohydrate/macrocrystals 100 mg capsule sertraline 25 mg tablet 25 mg PO DAILY 04/17/24 04/17/24 Allergies Allergy/AdvReac Type Severity Reaction Status Date / Time latex Allergy Hives Verified 03/12/24 14:52 Review of Systems Review of Systems: All systems reviewed & are unremarkable except as noted in HPI and below PMFSH Past Medical History Medical History History of colon cancer Mild cognitive impairment Surgical History Surgical History H/O partial resection of colon History of cholecystectomy Family History Family History (Updated 04/17/24 @ 21:21 by Melissa Samaniego RN) Father Carcinoma of colon Daughter No problems noted. Mother Heart attack Cerebrovascular accident Social History Social History Social History: Caffeine- tea Smoking status: Never smoker Second hand tobacco smoke exposure: No Alcohol intake: never Substance use: never Substance use type: does not use Do You Feel Safe in your Home?: Yes Lack of Transportation: No Lack of Food: Never True Current Housing: I Have Housing Concerned About Future Housing: No Difficulty Paying Gas/Electric Bills: No Difficulty Paying for Meds: No Currently Unemployed: No Education: High School Diploma/GED Difficulty w/ Childcare or Family Care: No Living arrangements: with family Occupation/Education: retired Gender identity (if verbalized by the patient): Female Sexual Orientation (if Verbalized by the Patient): Straight or Heterosexual Spiritual care concerns: No Exam Narrative: APPEARANCE: Well appearing, no pain, no distress, well-nourished. HEAD: normocephalic, atraumatic. EYES: PERRLA/EOMI, conjunctivae clear. NOSE: Normal no drainage EARS:TMS clear with good light reflex. THROAT: Pharynx clear, no exudate. NECK: Supple. No adenopathy, no masses. RESPIRATORY: Airway patent, respirations nonlabored. Clear to auscultation bilaterally, no rales, rhonchi, wheezing. CARDIOVASCULAR: Regular rate and rhythm without murmurs rubs or gallops. ABDOMINAL: Soft, nontender, nondistended, normal bowel sounds MUSCULOSKELETAL: Moves all extremities. Strength/ROM intact, No edema, No calf tenderness. NEURO: Alert. Cranial nerves II through XII intact. Good gait. Good coordination SKIN: Warm, dry. Normal Color Course Vital Signs Vital signs: Vital Signs Temperature 97.6 F 04/17/24 15:43 Pulse Rate 54 L 04/17/24 15:43 Respiratory Rate 15 04/17/24 15:43 Blood Pressure 147/63 H 04/17/24 15:43 Pulse Oximetry 98 04/17/24 15:43 Oxygen Delivery Room Air 04/17/24 15:43 Temperature 97.6 F 04/17/24 15:43 Pulse Rate 52 L 04/17/24 18:39
[2024-04-17 17:27] LABS: Appearance Urine Cloudy (Clear); Bacteria Urine None Seen /hpf; Bilirubin Urine Negative (Negative); Blood Urine Non-Hemolyzed Trace (Negative); Color Urine Yellow (Yellow); Glucose Urine UA Negative (Negative); Ketones Urine Negative (Negative); Leukocyte Esterase Ur 1+ LEU/UL (Negative); Nitrate Urine Negative (Negative); Protein Urine Trace mg/dL (Negative); Specific Grav Ur 1.014 (1.001-1.035); Squamous Epithelial Cell Urine None Seen /hpf (Few); WBC Urine 21-50 /hpf (0-3); pH Urine 7.5 (5.0-9.0)
[2024-04-17 17:28] LABS: Add Urine Microscopic? YES
[2024-04-17 18:39] VITALS: BP 168/66; PULSE 52; RESP 16; O2SAT 96
[2024-04-17 20:00] VITALS: PULSE 59
[2024-04-17 21:22] VITALS: BMI 18.1
[2024-04-17 22:00] VITALS: BP 142/52; PULSE 56; RESP 18; TEMP 36.2; O2SAT 97
--- NOTE | 2024-04-17 23:11 | PM.IMHP ---
H&P: HPI History of Present Illness Date/Time: 04/17/24 23:30 Chief Complaint: Weakness. Narrative: This is an 83-year-old female with cognitive impairment, hypertension, depression, anxiety, and colon cancer who presented to the emergency department via EMS from home for evaluation of weakness. The patient provides the following history and her family members provide additional information with the patient's permission. The patient lives in her own home but family members are around frequently to help her out. Today while family members were visiting the patient had a fall while she was in the bathroom and called them to help her up. They helped her up and attempted to walk her to sit down at which time she had a brief syncopal episode. On EMS arrival her vital signs were stable and she was alert and oriented. Family members are concerned that she is dehydrated though the patient states she has been eating and drinking okay. With further questioning she endorses frequent falls and tells me it is because she has poor balance. She denies antecedent symptoms prior to the falls and specifically denies feelings of lightheadedness and dizziness. She does not think she has had any head trauma and denies significant injuries. She also denies recent cold and flu symptoms, fever, chest pain, pleuritic pain, shortness of breath, nausea, vomiting, diarrhea, and dysuria. In the ED: She was afebrile on arrival. Blood pressures have been running in the 140s to 150s systolic. Heart rate has been in the 50s to 60s which looks to be her baseline. Orthostatic vital signs were not obtained. Labs were significant for a WBC count of 4.5, hemoglobin 12.5, carbon dioxide 33, BUN 15, creatinine 0.90, glucose 147. Urine was cloudy with 1+ leukocyte esterase and 21 to 50 WBC although no bacteria were seen on microscopy. Brain CT showed no acute intracranial process and chest x-ray showed no acute cardiopulmonary process. She is being admitted in this setting for further workup. Review of Systems Review of Systems: 12 systems were reviewed and are negative except for as per HPI. [facility] Past Medical History Medical History (Updated 04/17/24 @ 23:18 by Elyse Christensen PA-C) Colon cancer Status post resection and chemotherapy in 2007. Hypertension Mild cognitive impairment Surgical History Surgical History (Updated 04/17/24 @ 23:13 by Elyse Christensen PA-C) History of cholecystectomy History of colonoscopy with polypectomy History of partial colectomy Family History Family History Father Carcinoma of colon Daughter No problems noted. Mother Heart attack Cerebrovascular accident Social History Social History (Updated 04/17/24 @ 23:18 by Elyse Christensen PA-C) Social History: Surrogate medical decision maker: Aidan Simms, son. Code status: Full code. Smoking status: Never smoker Second hand tobacco smoke exposure: No Alcohol intake: never Substance use: never Substance use type: does not use Do You Feel Safe in your Home?: Yes Lack of Transportation: No Lack of Food: Never True Current Housing: I Have Housing Concerned About Future Housing: No Difficulty Paying Gas/Electric Bills: No Difficulty Paying for Meds: No Currently Unemployed: No Education: High School Diploma/GED Difficulty w/ Childcare or Family Care: No Living arrangements: alone Occupation/Education: retired Spiritual care concerns: No Meds Home Medications and Allergies Home Medications Medication Instructions Recorded Confirmed Type atenolol 50 mg-chlorthalidone 25 1 tablet PO DAILY #90 tabs 11/28/23 04/17/24 Rx mg tablet donepezil 5 mg tablet 5 mg PO QHS #30 tabs 02/10/24 04/17/24 Rx clorazepate dipotassium 3.75 mg 3.75 mg PO BID PRN anxiety #60 tabs 02/20/24 04/17/24 Rx tablet potassium chloride 20 mEq oral 20 meq PO DAILY #90 ea 02/22/2403/22
[2024-04-18] VITALS (8 sets, daily range): BP systolic 127–152; BP diastolic 46–68; PULSE 52–64; RESP 16–18; TEMP 36.2–36.6; O2SAT 97–98; BMI 18.1
[2024-04-18 05:39] LABS: Hematocrit 36.9 % (37.0-47.0); Hemoglobin 12.3 g/dL (12.0-15.0); Mean Corpuscular HGB Conc 33.3 g/dl (32-36); Mean Corpuscular Hemoglobin 29.1 pg (26-34); Mean Corpuscular Volume 87.4 fl (80-100); Mean Platelet Volume 9.8 fl (7.4-10.4); Platelet Count Result 171 k/mm3 (150-375); Red Blood Count 4.22 M/mm3 (4.2-5.4); Red Cell Distribution Width 13.3 % (11.5-14.5); White Blood Count 4.8 K/mm3 (4.5-10.0)
[2024-04-18 05:53] LABS: Anion Gap 5 mmol/L (4-12); Blood Urea Nitrogen 18 mg/dL (7-17); Calcium 9.8 mg/dL (8.4-10.2); Carbon Dioxide 32 mmol/L (22-30); Chloride 102 mmol/L (98-107); Estimated CRCL calculation 30 ml/min; Estimated Glomerular Filt Rate 60; Glucose 100 mg/dL (65-110); Magnesium 1.8 mg/dL (1.6-2.3); Potassium 3.6 mmol/L (3.4-5.0); Sodium 139 mmol/L (137-145)
[2024-04-18] MEDS: CHLORTHALIDONE 25 MG TABLET PO (09:49)
[2024-04-18] MEDS: POTASSIUM CHLORIDE 20 MEQ PACKET (FOR LIQUID) PO (09:49)
[2024-04-18] MEDS: SERTRALINE HCL 25 MG TABLET PO (09:49)
[2024-04-18] MEDS: atenoloL 25 MG TABLET 50 MG PO (09:49)
[2024-04-18] MEDS: AMOXICILLIN/CLAVULANATE K 875-125 MG TAB 1 TABLET PO (17:26)
--- NOTE | 2024-04-18 23:16 | ECHO_ITS ---
Patient Info Name: Yolande Juarez Age: 83 years : 1940 Gender: Female Ht: 63 in Wt: 102 lbs BSA: 1.43 m2 HR: 64 bpm BP: 142 / 52 mmHg Heart Rhythm: Sinus Rhythm Technical Quality: Good Exam Date: 04/18/2024 9:13 AM Exam Location: Echo Lab Patient Status: Inpatient Admit Date: 04/17/2024 Staff Ordering Physician: Elyse Christensen PA-C Superintendent Drivers: Yris Machado RDCS Attending Provider: Mindy Castillo DO Referring Physician: Fermin TEMPLE; Exam Type: CA echo doppler color flow Study Info Indications R55 - Syncope and collapse Complete two-dimensional, color flow and Doppler transthoracic echocardiogram is performed. Summary 1. Complete two-dimensional, color flow and Doppler transthoracic echocardiogram is performed. 2. Left ventricular chamber dimension is normal. 3. Left ventricular systolic function is normal, estimated at 65-70%. 4. The left ventricular diastolic function is abnormal. 5. E/e' 12 is mildly elevated. 6. There is mild mitral valve regurgitation. 7. There is trace tricuspid valve regurgitation. 8. No pulmonary hypertension, estimated pulmonary arterial systolic pressure is 35 mmHg. Left Ventricle E/e' 12 is mildly elevated. Left ventricular chamber dimension is normal. Left ventricular systolic function is normal, estimated at 65-70%. The left ventricular diastolic function is abnormal. Right Ventricle Right ventricular systolic function is normal and with normal TAPSE 1.8 cm. Right ventricular chamber dimension is normal. Left Atria Left atrial chamber dimension is normal. Right Atria Right atrial chamber dimension is normal. Aortic Valve The aortic valve is trileaflet. There is no aortic valve stenosis. There is no aortic valve regurgitation. Pulmonic Valve There is no pulmonic regurgitation. Mitral Valve There is no mitral valve stenosis. There is mild mitral valve regurgitation. Tricuspid Valve There is trace tricuspid valve regurgitation. No pulmonary hypertension, estimated pulmonary arterial systolic pressure is 35 mmHg. Pericardium/Pleural There is no pericardial effusion. Inferior Vena Cava Normal inferior vena cava with >50% collapse upon inspiration consistent with normal right atrial pressure, 5 mmHg. Aorta The aortic root size at the sinus of Valsalva is normal. Left Ventricular Outflow Tract Name Value Normal LVOT 2D LVOT Diameter 2.0 cm LVOT Doppler LVOT Peak Gradient 2 mmHg LVOT Mean Gradient 1 mmHg LVOT VTI 17 cm LVOT VTI/AV VTI Ratio 0.5 LVOT Stroke Volume 50 ml LVOT CO 2.7 l/min LVOT CI 1.9 l/min/m2 Pulmonic Valve Name Value Normal RVOT Doppler RVOT Peak Gradient 1 mmHg PV Doppler
--- NOTE | 2024-04-20 17:59 | PM.DS ---
DS: Admitting Diagnosis Discharge Date 04/18/24 Admitting Diagnosis weakness DS: Discharge Diagnosis Discharge Diagnosis Plan (1) Syncope: ?Code(s): R55 - Syncope and collapse ?Status:?Acute (2) Frequent falls: ?Code(s): R29.6 - Repeated falls ?Status:?Acute (3) Generalized weakness: ?Code(s): R53.1 - Weakness ?Status:?Acute (4) Mild cognitive impairment: ?Code(s): G31.84 - Mild cognitive impairment of uncertain or unknown etiology ?Status:?Acute (5) Hypertension: ?Code(s): I10 - Essential (primary) hypertension ?Status:?Acute Plan The patient presented to the emergency department for evaluation after a fall in brief unresponsive episode as detailed in HPI. Labs, imaging, EKG, and all reports were personally reviewed. Vital signs have been stable since arrival however will check orthostatic vital signs. She will be monitor on telemetry to rule out cardiac dysrhythmia. Echocardiogram and carotid Doppler ultrasounds ordered for further evaluation. Initiate fall precautions. PT/OT consulted. She would likely benefit from rehab before returning home or even placement in assisted living depending on her progress. UA is positive for 1+ leukocyte esterase and 21 to 50 WBC however no bacteria were seen on microscopy, urine was nitrate negative, and she has no symptoms to suggest UTI. Thus will hold on antibiotics. Her home medications will be reviewed and resumed as appropriate. Findings and treatment plan were discussed with the patient. Questions were solicited and answered to satisfaction. The patient's medical management will be taken over by the hospitalist team in a.m. DS: Summary Hospital Course Reason for hospitalization: UTI, fall Hospital Course: This is an 83-year-old female with cognitive impairment, hypertension, depression, anxiety, and colon cancer who presented to the emergency department via EMS from home for evaluation of weakness. The patient provides the following history and her family members provide additional information with the patient's permission. The patient lives in her own home but family members are around frequently to help her out. Today while family members were visiting the patient had a fall while she was in the bathroom and called them to help her up. They helped her up and attempted to walk her to sit down at which time she had a brief syncopal episode. On EMS arrival her vital signs were stable and she was alert and oriented. Family members are concerned that she is dehydrated though the patient states she has been eating and drinking okay. With further questioning she endorses frequent falls and tells me it is because she has poor balance. She denies antecedent symptoms prior to the falls and specifically denies feelings of lightheadedness and dizziness. She does not think she has had any head trauma and denies significant injuries. She also denies recent cold and flu symptoms, fever, chest pain, pleuritic pain, shortness of breath, nausea, vomiting, diarrhea, and dysuria. In the ED: She was afebrile on arrival. Blood pressures have been running in the 140s to 150s systolic. Heart rate has been in the 50s to 60s which looks to be her baseline. Orthostatic vital signs were not obtained. Labs were significant for a WBC count of 4.5, hemoglobin 12.5, carbon dioxide 33, BUN 15, creatinine 0.90, glucose 147. Urine was cloudy with 1+ leukocyte esterase and 21 to 50 WBC although no bacteria were seen on microscopy. Brain CT showed no acute intracranial process and chest x-ray showed no acute cardiopulmonary process. She is being admitted in this setting for further workup. Time Spent with Patient Time attestation: Total time spent providing and/or coordinating discharge services:67 Exam Narrative: General: well appearing, thin, frail appears stated age. HEENT: normocephalic, atraumatic. Mucous membranes moist. EOMI, PERRLA, bilateral sclera anicteric, no conju
== END 2024-04-18 18:20 | disposition home or self-care (01) ==
LOC: ANHED 16:21 → ANH3MED 19:52
PROVIDERS: Physician Assistant; Admitting Provider Family Medicine; Emergency Provider Emergency Medicine; PCP Family Medicine; Visit Provider Internal Medicine
DX: N39.0 Urinary tract infection, site not specified (principal); R55 Syncope and collapse; R53.1 Weakness; R29.6 Repeated falls; G31.84 Mild cognitive impairment of uncertain or unknown etiology; I65.23 Occlusion and stenosis of bilateral carotid arteries; Z85.038 Personal history of other malignant neoplasm of large intestine; Z90.49 Acquired absence of other specified parts of digestive tract; Z92.21 Personal history of antineoplastic chemotherapy
CPT/HCPCS: 36415; 70450; 71046; 80048; 80053; 81001; 83735; 84443; 85025; 85027; 87086; 93005; 93306; 93880; 96365; 99285; A9270; G0378; J0696

== ENCOUNTER 2025-03-01 15:46 | Observation (INO) | payer MEDICARE, SELFPAY ==
--- NOTE | ~2025-03-01 | CT_ITS ---
CT lumbar spine wo con Ordering provider: Alexis Arguello MD History: 84 years Female with . Fall onto glutes. Lower back pain . Comparison: None. Technique: CT lumbar spine without contrast. Automated exposure control and iterative reconstruction technique were employed. The dose-length product was 162.91 mGy-cm. FINDINGS: VERTEBRAE: Normal height and alignment. No subluxation or visible acute fracture. Degenerative changes of the spine. Sacralization of L5 is seen on the left side. DISC SPACES: Well maintained. Multilevel facet joint disease. T12-L1: No stenosis. L1-L2: No stenosis. Bilateral Facet joint disease. L2-L3: No stenosis. Bilateral facet joint disease. L3-L4: No stenosis. Bilateral facet joint disease. L4-L5: No stenosis. Bilateral facet joint disease. Diffuse disc bulge with protrusion in the right l ateral foramen with root compression. L5-S1: No stenosis. PARASPINOUS SOFT TISSUES: Mild atheromatous disease of the abdominal aorta. Bilateral sacroiliitis. IMPRESSION: No acute osseous abnormality. Disc bulge at the level of L4-L5 with narrowing of the right foramen and nerve root compression. Reviewed, dictated and finalized at location A.
--- NOTE | ~2025-03-01 | XR_ITS ---
XR chest 1V portable Ordering provider: Alexis Arguello MD History: 84 years Female with . Fall . Comparison: April 17, 2024 FINDINGS: MEDIASTINUM: The cardiac silhouette is not enlarged. LUNGS: No infiltrates, effusions or pneumothorax. OTHER: No free air under the diaphragm. Degenerative changes of the spine. IMPRESSION: No acute cardiopulmonary pathology. Reviewed, dictated and finalized at location A.
--- NOTE | ~2025-03-01 | XR_ITS ---
SINGLE AP VIEW PELVIS Ordering provider: Alexis Arguello MD History: . Fall . Comparison: None. FINDINGS: BONES: No acute fracture or dislocation. HIP JOINT SPACES: Normal. SACROILIAC JOINT SPACES/LUMBAR SPINE: The sacroiliac joint spaces are normal. Mild degenerative prado es of the visualized lower lumbar spine. PUBIC SYMPHYSIS: Normal. SOFT TISSUES: Normal. IMPRESSION: No acute osseous abnormality pelvis. Reviewed, dictated and finalized at location A.
--- OUTSIDE RECORDS SUMMARY | 2025-03-01 15:50 | XMS_ITS | Clinical Summary ---
Author Organization [facility] Address [address] [place] [address] Care Team Providers Care Instructor Of Spanish Name Role Phone Kostas Weber MD Primary Care Provider [phone] Jaime Jacobsen MD Unavailable [phone] Allergies Active Allergy Reactions Criticality Noted Date Comments Latex Itching Low 09/12/2017 Medications cyanocobalamin (Vitamin B-12) 1,000 mcg tablet take 1 Tablet by Oral route once weekly 0 0 08/24/2016 Active calcium carbonate-vitami n D3 (CALCIUM 600 + D,3,) 1500 mg (600 mg elemental) -400 units per tablet 1 po bid 0 0 07/06/2011 Active cholecalciferol (Vitamin D3) 5,000 unit tablet Take one tablet by mouth twice a week 0 10/14/2020 Active atenoloL-chlorth alidone (TENORETIC) 50-25 mg per tablet Take 1 tablet by mouth daily 90 tablet 3 05/04/2022 Active clorazepate (TRANXENE) 3.75 mg tablet Take 1 tablet (3.75 mg total) by mouth 2 (two) times a day prn 60 tablet 05/04/2022 Active potassium chloride ER (KLOR-CON) 20 mEq CR tablet Take 1 tablet (20 mEq total) by mouth daily 30 tablet 11 05/04/2022 Active Active Problems Problem Noted Date Diagnosed Date Mild neurocognitive disorder 11/03/2021 Assessment & Plan (05/04/2022 2:08 PM CDT): Remains stable on can repeat SLUMS before next visit if needed. Lab workup unremarkable. Assessment & Plan (11/03/2021 3:41 PM STRAPPING MACHINE OPERATOR): Healthy lifestyle recommended and will repeat again in 1 year. Laboratory workup unremarkable. Memory loss 05/11/2021 Overview (11/03/2021): RPR, TSH, B12, urine heavy metal screen unremarkable 10/26/21 Assessment & Plan (05/11/2021 4:52 PM CDT): Laboratory evaluation before next visit. SLU MS testing next visit. Leukopenia 10/14/2020 Assessment & Plan (10/14/2020 10:31 AM STRAPPING MACHINE OPERATOR): Mild and asymptomatic and has been present for several years. Will check again 6 months and refer back to her oncologist if worsens. Healthcare maintenance 09/24/2019 Assessment & Plan (09/24/2019 2:44 PM STRAPPING MACHINE OPERATOR): Flu shot each August. Tetanus booster every 10 years. Shingrix recommended. She has completed Prevnar/ Pneumovax. Mammograms/Pap smears no longer needed. We will see her back in 6 months with lab sooner if needed. History of colon cancer 03/20/2019 Overview (10/14/2020): S/p resection (2006) and chemotherapy Both GI and Onc discharged and stated no more colonoscopies needed per patient. Assessment & Plan (10/14/2020 10:32 AM STRAPPING MACHINE OPERATOR): Discharged from both Gastroenterology and Oncology who both recommended no further colonoscopies. No current symptoms. Assessment & Plan (09/24/2019 2:43 PM STRAPPING MACHINE OPERATOR): Seems like her health is good enough to warrant further colonoscopies given history of colon cancer. She will discuss further with her oncologist. Assessment & Plan (05/15/2019 9:14 PM CDT): Follow-up with her oncologist as he directs. Lichen sclerosus 12/22/2018 Vaginal atrophy 09/19/2018 Overview (09/19/2018): Chronic dysuria improved with estrace and vaseline. Persistent bladder wall erythema with negative bx. 02/2018. Followed by Dr Cochran. Medicare annual wellness visit, subsequent 03/20 Assessment & Plan (11/03/2021 3:41 PM STRAPPING MACHINE OPERATOR): We discussed a comprehensive list of medical conditions and proposed recommendations for each. We discussed the importance of increased exercise, fall prevention, proper nutrition, and suggested joining [employer] [facility] to accomplish most of these goals. Patient was given an age appropriate Medicare preventive services checklist. Please see the EMR regarding details of their health risk assessment and preventive services checklist. Will see her back in 6 months with metabolic panel blood pressure check sooner if needed. Assessment & Plan (10/14/2020 10:31 AM STRAPPING MACHINE OPERATOR): We discussed a comprehensive list of medical conditions and proposed recommendations for each. We discussed the importance of increased exercise, fall prevention, proper nutrition, and suggested joining [facility] to accomplish most of these goals. Patient was given an age appropriate Medicare preventive services checklist. Please see the EMR regarding details of their health risk assessment and preventive services checklist. Will see her back in 6 months with CBC and metabolic panel sooner if needed. Assessment & Plan (03/20/2018 2:37 PM CDT): We discussed a comprehensive list of medical conditions and proposed recommendations for each. We discussed the importance of increased exercise, fall prevention, proper nutrition, and suggested joining [facility] to accomplish most of these goals. Patient was given an age appropriate Medicare preventive services checklist. Please see the EMR regarding details of their health risk assessment and preventive services checklist. Will see her back in 6 months with fasting CMP and lipid panel sooner if needed. At low risk for fall 03/20/2018 Assessment & Plan (11/03/2021 3:41 PM STRAPPING MACHINE OPERATOR): Timed get up and go test normal. Assessment & Plan (10/14/2020 10:32 AM STRAPPING MACHINE OPERATOR): Timed get up and go test normal. Assessment & Plan (03/20/2018 2:37 PM CDT): Timed get up and go test normal. Hypokalemia 09/12/2017 Assessment & Plan (05/04/2022 2:06 PM CDT): Well controlled on Klor-Con. Assessment & Plan (10/14/2020 10:32 AM STRAPPING MACHINE OPERATOR): Better controlled on prescription potassium. Check again in 6 months. Assessment & Plan (09/19/2018 3:03 PM CDT): Potassium rich diet and repeat potassium level before next visit. If no improvement would recommend restarting potassium supplementation. Assessment & Plan (03/20/2018 2:36 PM CDT): Well controlled with supplementation. Vitamin D deficiency 09/12/2017 Assessment & Plan (05/04/2022 2:07 PM CDT): Continue supplementation check level in 6 months Assessment & Plan (11/03/2021 3:40 PM STRAPPING MACHINE OPERATOR): Continue current supplementation and check level in 1 year. Assessment & Plan (05/11/2021 4:51 PM CDT): Continue current supplementation and check level in 6 months. Assessment & Plan (10/14/2020 10:31 AM STRAPPING MACHINE OPERATOR): Continue current supplementation and check level in 1 year. Assessment & Plan (09/24/2019 2:42 PM STRAPPING MACHINE OPERATOR): Continue supplementation check level before next visit. Assessment & Plan (05/15/2019 9:12 PM CDT): Continue supplementation and check level before next visit. Assessment & Plan (03/20/2018 2:36 PM CDT): Continue weekly usage of vitamin-D 5000 units and check level in 1 year. Vitamin B12 deficiency 09/12/2017 Assessment & Plan (05/04/2022 2:07 PM CDT): Continue B12 supplementation and check level before next visit. Assessment & Plan (11/03/2021 3:40 PM STRAPPING MACHINE OPERATOR): Continue B12 supplementation and check level in 1 year. Assessment & Plan (05/11/2021 4:52 PM CDT): Continue supplementation and check level in 6 months Assessment & Plan (10/14/2020 10:31 AM STRAPPING MACHINE OPERATOR): Continue B12 supplementation check level in 1 year. Assessment & Plan (09/24/2019 2:43 PM STRAPPING MACHINE OPERATOR): Continue supplementation check level before next visit. Assessment & Plan (05/15/2019 9:12 PM CDT): Continue supplementation check level before next visit. Assessment & Plan (03/20/2018 2:36 PM CDT): Continue weekly B12 supplementation check level in 1 year. Atopic rhinitis 04/06/2014 Overview (02/23/2017): ALLERGIC RHINITIS NOS Assessment & Plan (03/20/2018 2:35 PM CDT): Well controlled Claritin as needed Assessment & Plan (09/12/2017 2:05 PM CDT): Continue Claritin as needed. Osteopenia 04/06/2014 Overview (10/14/2020): actonel started approx 09/2014. BMD due 10/2018. Discontinued approximately 08/2019. Assessment & Plan (11/03/2021 3:40 PM STRAPPING MACHINE OPERATOR): Patient declines repeat bone density scanning is aware the risks this poses to her health. Assessment & Plan (10/14/2020 10:30 AM STRAPPING MACHINE OPERATOR): Continue calcium, vitamin-D, weight-bearing exercise repeat bone density scan 1 COVID-19 issues improved. Would recommend switching to Prolia at that time if needed as she is already completed 5 years of oral bisphosphonate therapy. Assessment & Plan (09/24/2019 2:43 PM STRAPPING MACHINE OPERATOR): Continue calcium, vitamin-D, weight-bearing exercise, Actonel started approximately 2013. Patient needs repeat bone density scan for decision on continuation of medication versus drug holiday verses change in medication. Assessment & Plan (05/15/2019 9:12 PM CDT): Continue Actonel, calcium, vitamin-D, weight-bearing exercise and repeat bone density scan before next visit. If stable or improved would consider drug holiday. Assessment & Plan (09/19/2018 3:03 PM CDT): Continue calcium, vitamin-D, weight-bearing exercise and Actonel and repeat bone density scan October 2018. Assessment & Plan (03/20/2018 2:35 PM CDT): Continue calcium, vitamin-D, weight-bearing exercise and Actonel repeat bone density scan October 2018. Assessment & Plan (09/12/2017 2:05 PM CDT): Calcium, vitamin-D, Actonel repeat bone density scan October 2018. Benign hypertension 04/06/2014 Overview (09/12/2017): Did not tolerate changing to lisinopril. Assessment & Plan (05/04/2022 2:06 PM CDT): Well controlled on the current regimen. Avoidance of salt, proper body weight, and routine exercise recommended. Assessment & Plan (11/03/2021 3:40 PM STRAPPING MACHINE OPERATOR): Well controlled on the current regimen. Avoidance of salt, proper body weight, and routine exercise recommended. Assessment & Plan (05/11/2021 4:51 PM CDT): Well controlled on the current regimen. Avoidance of salt, proper body weight, and routine exercise recommended. Assessment & Plan (10/14/2020 10:30 AM STRAPPING MACHINE OPERATOR): Well controlled on the current regimen. Avoidance of salt, proper body weight, and routine exercise recommended. Assessment & Plan (09/24/2019 2:43 PM STRAPPING MACHINE OPERATOR): Well controlled on the current regimen. Avoidance of salt, proper body weight, and routine exercise recommended. Assessment & Plan (05/15/2019 9:13 PM CDT): Well controlled on the current regimen. Avoidance of salt, proper body weight, and routine exercise recommended. Assessment & Plan (09/19/2018 3:03 PM CDT): Well controlled on the current regimen. Avoidance of salt, proper body weight, and routine exercise recommended. Assessment & Plan (03/20/2018 2:36 PM CDT): Well controlled on the current regimen. Avoidance of salt, proper body weight, and routine exercise recommended. Assessment & Plan (09/12/2017 2:05 PM CDT): Anxiety may be playing a role continue checking blood pressure at home, record, call back if routinely over 140/90. Anxiety state 04/06/2014 Overview (02/24/2017): ANXIETY STATE NOS Assessment & Plan (05/04/2022 2:06 PM CDT): Well controlled on clorazepate Assessment & Plan (11/03/2021 3:40 PM STRAPPING MACHINE OPERATOR): Stable on clorazepate as needed. Assessment & Plan (05/11/2021 4:51 PM CDT): Well controlled on clorazepate. Assessment & Plan (10/14/2020 10:31 AM STRAPPING MACHINE OPERATOR): Well controlled with an occasional clorazepate. Assessment & Plan (05/15/2019 9:13 PM CDT): Well controlled on tranxene Assessment & Plan (09/19/2018 3:03 PM CDT): Stable on clorazepate as needed. Assessment & Plan (03/20/2018 2:36 PM CDT): Well controlled with tranxene as needed. I have asked her to decrease usage of this. Assessment & Plan (09/12/2017 2:06 PM CDT): Continue transxene as needed. Counseling referral for anxiety and grief. I suspect these are both playing a role in her memory loss. Calculus of gallbladder 05/30/2012 Overview (02/24/2017): Gallstones Resolved Problems Problem Noted Date Diagnosed Date Resolved Date Primary malignant neoplasm of colon 04/06/2014 10/14/2020 Cancer Staging:Pathologic stage from 04/04/2008:Stage IIIA(pT1, pN1b, cM0) - Signed by Jaime Jacobsen MD on 10/30/2018 Clinical: Unsigned Overview (09/12/2017): Status post resection and chemotherapy. Assessment & Plan (03/20/2018 2:35 PM CDT): Asymptomatic and colonoscopy due September 2018. Follow up with her oncologist as he directs. Hypertension 05/30/2012 09/12/2017 Overview (02/24/2017): Hypertension Immunizations Immunization Administration Dates Next Due Influenza, Quadrivalent, Hig h Dose, Preservative Free, Intrr 10/14/2020 Influenza, Split 07/22/2010 Influenza, Trivalent, High D ose, Split, Preservative Free, Intramuscular 09/24/2019,09/19/2018,09/12/2017,08/24,08/18/2015 Influenza, Trivalent, IM (MDV) 08/21/2012 Influenza, Unspecified 05/04/2022(Deferred: Ronel ent Refused) Moderna SARS-CoV-2 Monovalen t Vaccination (12+ YRS) 01/27/2021,12/25/2020 Pneumococcal Conjugate PCV 13 08/18/2015 Pneumococcal Polysaccharide PPV23 02/12/2010 TD Preservative Free 07/26/2006 Tdap 08/24/2016 Surgical History Surgery Date Site/Laterality Comments OTHER SURGICAL HISTORY Cancer, colon: Chemotherapy OTHER SURGICAL HISTORY 11/21/2011 - 11/20/2012 Gallbladder Attack: ER visit 05/06/12 OTHER SURGICAL HISTORY VAD placement OTHER SURGICAL HISTORY VAD removal OTHER SURGICAL HISTORY 11/21/2007 - 11/20/2008 Cancer, colon: hand assisted laparoscopic low anterior resection of colorectum CHOLECYSTECTOMY 11/21/2011 - 11/20/2012 Lap Cholecystectomy OTHER SURGICAL HISTORY 04-ortho: Dr Hassan OTHER SURGICAL HISTORY cholecystectomy 06/01: Dr Lovell COLON SURGERY COLONOSCOPY CYSTOSCOPY 09/19/2020 bladder lesion treatment; Dr Casas Medical History Medical History Date Comments Hx Other Medical 02-oncologist Hx Other Medical [id number] n Malignant neoplasm of colon (HCC) Cancer, colon Herpes zoster Herpes zoster Hx Other Medical 2011 Gallbladder Att ack Hypertension Hypertension Hx Other Medical colon removed Rheumatoid arthritis (HCC) Rheum atoid arthritis Hx Other Medical torn tendon / l eft ankle Hx Other Medical 2011 gallbladder garcia rgery Hx Other Medical 04-ortho Hx Other Medical cholecystectomy 06/01 Hx Other Medical 2007 Partial colecto my Hx Other Medical 05 - [place] [facility] dr gregory camacho Colon cancer (HCC) Family History Medical History Relation Name Comments Colon cancer Father Cancer -colon; /Cancer, colon; Colon cancer Maternal Grandfather Cancer, colon; Coronary artery disease Mother Lucía nary artery disease; Cause of : Coronary artery disease/Coronary artery disease; Hypertension Mother Hypertension; Stroke Mother Stroke; Cancer Other 1 Family history of Cancer; Diabetes Other 2 Family history of Diabetes mellitus; Hypertension Other 3 Family history of Hypertension; Osteoarthritis Other 4 Family histor y of Osteoarthritis; Colon cancer Sister 1 Cancer -colon; Colon cancer Sister 2 Cancer, colon; Relation Name Status Comments Father Maternal Grandfather Mother (Age 93) Other 1 Other 2 Other 3 Other 4 Sister 1 Sister 2 Social History Tobacco Use Types Packs/Day Years Used Date Smoking Tobacco: Never Smokeless Tobacco: Never Tobacco Cessation:Counseling Given: Yes Alcohol Use Standard Drinks/Week Comments No 0 (1 standard drink = 0.6 oz pur e alcohol) PHQ-2 Answer Date Recorded PHQ-2 Total Score (If total score is 3 or more points, staff should administer the PHQ-9) 0 05/04/2022 Comments Unknown Sex and Gender Information Value Date Recorded Sex Assigned at Not on file Legal Sex Female 10:08 AM STRAPPING MACHINE OPERATOR Gender Identity Not on file Sexual Orientation Not on file Obstetrics History Last Filed Vital Signs Vital Sign Reading Time Taken Comments Blood Pressure 110/80 05/04/2022 1:50 PM CDT Pulse 64 05/04/2022 1:50 PM CDT Temperature 36.5 C (97.7 F) 09/19/2020 12:48 PM CDT Respiratory Rate 16 05/04/2022 1:50 PM CDT Oxygen Saturation 98% 09/19/2020 12:48 PM CDT Inhaled Oxygen Concentration - - Weight 53.5 kg (118 lb) 05/04/2022 1:50 PM CDT Height 161.3 cm (5' 3.5 ) 05/04/2022 1:50 PM CDT Body Mass Index 20.57 05/04/2022 1:50 PM CDT Plan of Treatment Health Maintenance Due Date Last Done Comments Hepatitis B Screening 1958 Zoster Vaccine (1 of 2) 1989 Breast Cancer Screening-Mammogram 09/10/2017 016 Colon Cancer Screening-Colonoscopy 09/24/2018 09/24/2015 Osteoporosis Screening-Bone Density Scan 10/22/2018 10/22/2016 Well Visit 65+ 11/03/2022 11/03/2021, 09/22, 09/24/2019, Additional history exists Depression Screening 05/04/2023 05/04/2022, 11/03/2021, 05/11/2021, Additional history exists Fall Risk Assessment 05/04/2023 05/04/2022, 11/03/2021, 05/11/2021, Additional history exists Covid-19 Vaccine (2023-12 5 season) 2024 01/27/2021, 12/25/2020 Influenza Vaccine (Season Ended) 2025 10/14/2020, 09/24/2019, 09/19/2018, Additional history exists DTaP/Tdap/Td Vaccine (2 - Td or Tdap) 08/24/2026 08/24/2016, 07/26/2006 Pneumococcal vaccine 65+ Completed 08/18/2015, 01/20 Colon Cancer Screening-CT Colonography Discontinued 09/24/2015 Colon Cancer Screening-DNA Stool Discontinued 09/24/20 15 Colon Cancer Screening-FIT Discontinued 09/24/2015 Colon Cancer Screening-Sigmoidoscopy Discontinued 09/24/2015 Procedures Procedure Name Priority Date/Time Associated Diagnosis Comments DEXA AXIAL SKELETON BONE DENSITY 1 OR MORE SITES Schedule Routine, Read Routine (OP Routine) 10/22/2016 SCREENING MAMMOGRAM 2D BILATERAL Schedule Routine, Read Routine (OP Routine) 09/10/2016 COLONOSCOPY Routine 09/24/2015 from Last 3 Months or Most Recently Relevant to Health Maintenance Results * (ABNORMAL) Dexa Axial Skeleton Bone Density 1 or 2 Site (10/22/2016) Anatomical Region Laterality Modality Body N/A Radiographic Cande ging Impressions 10/22/2016 Osteopenia Historical Provider IMG DXA PROCEDURES Final Result * Screening Mammogram 2D Bilateral (09/10/2016) Anatomical Region Laterality Modality Breast Bilateral Mammography Historical Provider IMPaty MAMMO PROCEDURES Colleen l Result * Colonoscopy (09/24/2015) Anatomical Region Laterality Modality Other us Historical Provider ENDOSCOPY PROCEDURES Colleen l Result from Last 3 Months or Most Recently Relevant to Health Maintenance Insurance [facility] MEDICARE ADVANTAGE [facility] MEDIC[facility] Address: [facility] [address] [place] [address] [facility] MEDICARE ADVANTAGE [facility] MEDICARE Address: [facility] [address] [place] [address] Care Teams Instructor Of Spanish Relationship Specialty Start Date End Date Kostas Weber MD PCP - General 02/18/17 Jaime Jacobsen MD Medical Oncologist/[facility] 10/26/18
--- OUTSIDE RECORDS SUMMARY | 2025-03-01 15:50 | XMS_ITS ---
Author Organization [facility] Address [address] [place] [address] Care Team Providers Care Airplane Rental Clerk Name Role Phone Kostas Weber MD Primary Care Provider [phone] Jaime Jacobsen MD Unavailable [phone] Active Problems Problem Noted Date Diagnosed Date Mild neurocognitive disorder 11/03/2021 Assessment & Plan (05/04/2022 2:08 PM CDT): Remains stable on can repeat SLUMS before next visit if needed. Lab workup unremarkable. Assessment & Plan (11/03/2021 3:41 PM LITIGATION LEGAL SECRETARY): Healthy lifestyle recommended and will repeat again in 1 year. Laboratory workup unremarkable. Memory loss 05/11/2021 Overview (11/03/2021): RPR, TSH, B12, urine heavy metal screen unremarkable 10/26/21 Assessment & Plan (05/11/2021 4:52 PM CDT): Laboratory evaluation before next visit. SLU MS testing next visit. Leukopenia 10/14/2020 Assessment & Plan (10/14/2020 10:31 AM LITIGATION LEGAL SECRETARY): Mild and asymptomatic and has been present for several years. Will check again 6 months and refer back to her oncologist if worsens. Healthcare maintenance 09/24/2019 Assessment & Plan (09/24/2019 2:44 PM LITIGATION LEGAL SECRETARY): Flu shot each August. Tetanus booster every [...] patient. Assessment & Plan (10/14/2020 10:32 AM LITIGATION LEGAL SECRETARY): Discharged from both Gastroenterology and Oncology who both recommended no further colonoscopies. No current symptoms. Assessment & Plan (09/24/2019 2:43 PM LITIGATION LEGAL SECRETARY): Seems like her health is good enough [...] 03/20 Assessment & Plan (11/03/2021 3:41 PM LITIGATION LEGAL SECRETARY): We discussed a comprehensive list of medical conditions and proposed recommendations for each. We discussed the importance of increased exercise, fall prevention, proper nutrition, and suggested joining [employer] to accomplish most of these goals. Patient was given an age appropriate Medicare preventive services checklist. Please see the EMR regarding details of their health risk assessment and preventive services checklist. Will see her back in 6 months with metabolic panel blood pressure check sooner if needed. Assessment & Plan (10/14/2020 10:31 AM LITIGATION LEGAL SECRETARY): We discussed a comprehensive list of medical [...] 03/20/2018 Assessment & Plan (11/03/2021 3:41 PM LITIGATION LEGAL SECRETARY): Timed get up and go test normal. Assessment & Plan (10/14/2020 10:32 AM LITIGATION LEGAL SECRETARY): Timed get up and go test normal. Assessment & Plan (03/20/2018 2:37 PM CDT): Timed get up and go test normal. Hypokalemia 09/12/2017 Assessment & Plan (05/04/2022 2:06 PM CDT): Well controlled on Klor-Con. Assessment & Plan (10/14/2020 10:32 AM LITIGATION LEGAL SECRETARY): Better controlled on prescription potassium. Check again [...] months Assessment & Plan (11/03/2021 3:40 PM LITIGATION LEGAL SECRETARY): Continue current supplementation and check level in 1 year. Assessment & Plan (05/11/2021 4:51 PM CDT): Continue current supplementation and check level in 6 months. Assessment & Plan (10/14/2020 10:31 AM LITIGATION LEGAL SECRETARY): Continue current supplementation and check level in 1 year. Assessment & Plan (09/24/2019 2:42 PM LITIGATION LEGAL SECRETARY): Continue supplementation check level before next visit. [...] visit. Assessment & Plan (11/03/2021 3:40 PM LITIGATION LEGAL SECRETARY): Continue B12 supplementation and check level in 1 year. Assessment & Plan (05/11/2021 4:52 PM CDT): Continue supplementation and check level in 6 months Assessment & Plan (10/14/2020 10:31 AM LITIGATION LEGAL SECRETARY): Continue B12 supplementation check level in 1 year. Assessment & Plan (09/24/2019 2:43 PM LITIGATION LEGAL SECRETARY): Continue supplementation check level before next visit. [...] 08/2019. Assessment & Plan (11/03/2021 3:40 PM LITIGATION LEGAL SECRETARY): Patient declines repeat bone density scanning is aware the risks this poses to her health. Assessment & Plan (10/14/2020 10:30 AM LITIGATION LEGAL SECRETARY): Continue calcium, vitamin-D, weight-bearing exercise repeat bone density scan 1 COVID-19 issues improved. Would recommend switching to Prolia at that time if needed as she is already completed 5 years of oral bisphosphonate therapy. Assessment & Plan (09/24/2019 2:43 PM LITIGATION LEGAL SECRETARY): Continue calcium, vitamin-D, weight-bearing exercise, Actonel started [...] recommended. Assessment & Plan (11/03/2021 3:40 PM LITIGATION LEGAL SECRETARY): Well controlled on the current regimen. Avoidance of salt, proper body weight, and routine exercise recommended. Assessment & Plan (05/11/2021 4:51 PM CDT): Well controlled on the current regimen. Avoidance of salt, proper body weight, and routine exercise recommended. Assessment & Plan (10/14/2020 10:30 AM LITIGATION LEGAL SECRETARY): Well controlled on the current regimen. Avoidance of salt, proper body weight, and routine exercise recommended. Assessment & Plan (09/24/2019 2:43 PM LITIGATION LEGAL SECRETARY): Well controlled on the current regimen. Avoidance [...] clorazepate Assessment & Plan (11/03/2021 3:40 PM LITIGATION LEGAL SECRETARY): Stable on clorazepate as needed. Assessment & Plan (05/11/2021 4:51 PM CDT): Well controlled on clorazepate. Assessment & Plan (10/14/2020 10:31 AM LITIGATION LEGAL SECRETARY): Well controlled with an occasional clorazepate. Assessment [...] Calculus of gallbladder 05/30/2012 Overview (02/24/2017): Gallstones Current Treatment and Therapy Plans No current plan information found. Past Treatment and Therapy Plans No past plan information found. Lifetime Dose Tracking * Chemical Lifetime Dose Automatic Entry Manual Entr y Fluoro Time 0.04 minutes 0.04 minutes 0 minutes Resolved Problems Problem Noted Date Diagnosed Date [...]
--- OUTSIDE RECORDS SUMMARY | 2025-03-01 15:50 | XMS_ITS | Encounter Summary ---
Author Organization [facility] Address [address] [place] [address] Phone Care Team Providers Care Food And Beverage Lead Name Role Phone Kostas Weber MD Primary Care Provider [phone] Jaime Jacobsen MD Unavailable [phone] Encounter Details Date Type Department Care Team (Late st Contact Info) Description 12/12/2017 Orders Only [facility] ProviderSarita MD [address] [place] [address] Social History Tobacco Use Types Packs/Day Years Used Date Smoking Tobacco: Never Smokeless Tobacco: Never Alcohol Use Standard Drinks/Week Comments Yes 0 (1 standard drink = 0.6 oz pur e alcohol) Comments Unknown Sex and Gender Information Value Date Recorded Sex Assigned at Not on file Legal Sex Female 10:08 AM TOGGLE PRESS FOLDER AND FEEDER Gender Identity Not on file Sexual Orientation Not on file documented as of this encounter Plan of Treatment Not on file documented as of this encounter Procedures Procedure Name Priority Date/Time Associated Diagnosis Comments DISCHARGE LABORATORY CUMULATIVE REPORT 12/12/2017 12:00 AM TOGGLE PRESS FOLDER AND FEEDER documented in this encounter Results * DISCHARGE LABORATORY CUMULATIVE REPORT (12/12/2017 12:00 AM TOGGLE PRESS FOLDER AND FEEDER) Narrative 12/12/2017 12:00 AM TOGGLE PRESS FOLDER AND FEEDER Ordered by an unspecified provider. us Historical Provider LAB BLOOD ORDERABLES Colleen l Result documented in this encounter Visit Diagnoses Not on filedocumented in this encounter Care Teams Food And Beverage Lead Relationship Specialty Start Date End Date Kostas Weber MD PCP - General 02/18/17 Jaime Jacobsen MD Medical Oncologist/Spectroscopist Hematology and Oncology 10/26/18 documented as of this encounter
--- OUTSIDE RECORDS SUMMARY | 2025-03-01 15:50 | XMS_ITS | Encounter Summary ---
Author Organization [facility] Care Team Providers Care Senior Mainframe Programmer Analyst Name Role Phone Kostas Weber MD Primary Care Provider [phone] Jaime Jacobsen MD Unavailable [phone] Encounter Details Date Type Department Care Team (Latest Contact Info) Description 12/04/2018 Orders Only [facility] ProviderSarita MD [address] [place], [place] [id number] Social History Tobacco Use Types Packs/Day Years Used Date Smoking Tobacco: Never Smokeless Tobacco: Never Alcohol Use Standard Drinks/Week Comments No 0 (1 standard drink = 0.6 oz pur e alcohol) Comments Unknown Sex and Gender Information Value Date Recorded Sex Assigned at Not on file Legal Sex Female 10:08 AM HERB DIGGER Gender Identity Not on file Sexual Orientation Not on file documented as of this encounter Plan of Treatment Not on file documented as of this encounter Procedures Procedure Name Priority Date/Time Associated Diagnosis Comments SCAN - LABS 12/20/2018 12:00 AM HERB DIGGER documented in this encounter Results * SCAN - LABS (12/20/2018 12:00 AM HERB DIGGER) Narrative 12/20/2018 12:00 AM HERB DIGGER Ordered by an unspecified provider. us Historical Provider Final Res ult documented in this encounter Visit Diagnoses Not on filedocumented in this encounter Care Teams Senior Mainframe Programmer Analyst Relationship Specialty Start Date End Date Kostas Weber MD PCP - General 02/18/17 Jaime Jacobsen MD Medical Oncologist/Contact Worker Lithography Hematology and Oncology 10/26/18 documented as of this encounter
--- OUTSIDE RECORDS SUMMARY | 2025-03-01 15:50 | XMS_ITS | Referral Summary ---
Author Organization [facility] Address [address] [place] [address] Care Team Providers Care Chief Green Officer Name Role Phone Kostas Weber MD Primary Care Provider [phone] Jaime Jacobsen MD Unavailable [phone] Allergies Active Allergy Reactions Criticality Noted Date [...] unremarkable. Assessment & Plan (11/03/2021 3:41 PM WHEEL BUFFER): Healthy lifestyle recommended and will repeat again in 1 year. Laboratory workup unremarkable. Memory loss 05/11/2021 Overview (11/03/2021): RPR, TSH, B12, urine heavy metal screen unremarkable 10/26/21 Assessment & Plan (05/11/2021 4:52 PM CDT): Laboratory evaluation before next visit. SLU MS testing next visit. Leukopenia 10/14/2020 Assessment & Plan (10/14/2020 10:31 AM WHEEL BUFFER): Mild and asymptomatic and has been present for several years. Will check again 6 months and refer back to her oncologist if worsens. Healthcare maintenance 09/24/2019 Assessment & Plan (09/24/2019 2:44 PM WHEEL BUFFER): Flu shot each August. Tetanus booster every [...] patient. Assessment & Plan (10/14/2020 10:32 AM WHEEL BUFFER): Discharged from both Gastroenterology and Oncology who both recommended no further colonoscopies. No current symptoms. Assessment & Plan (09/24/2019 2:43 PM WHEEL BUFFER): Seems like her health is good enough [...] 03/20 Assessment & Plan (11/03/2021 3:41 PM WHEEL BUFFER): We discussed a comprehensive list of medical [...] needed. Assessment & Plan (10/14/2020 10:31 AM WHEEL BUFFER): We discussed a comprehensive list of medical [...] 03/20/2018 Assessment & Plan (11/03/2021 3:41 PM WHEEL BUFFER): Timed get up and go test normal. Assessment & Plan (10/14/2020 10:32 AM WHEEL BUFFER): Timed get up and go test normal. Assessment & Plan (03/20/2018 2:37 PM CDT): Timed get up and go test normal. Hypokalemia 09/12/2017 Assessment & Plan (05/04/2022 2:06 PM CDT): Well controlled on Klor-Con. Assessment & Plan (10/14/2020 10:32 AM WHEEL BUFFER): Better controlled on prescription potassium. Check again [...] months Assessment & Plan (11/03/2021 3:40 PM WHEEL BUFFER): Continue current supplementation and check level in 1 year. Assessment & Plan (05/11/2021 4:51 PM CDT): Continue current supplementation and check level in 6 months. Assessment & Plan (10/14/2020 10:31 AM WHEEL BUFFER): Continue current supplementation and check level in 1 year. Assessment & Plan (09/24/2019 2:42 PM WHEEL BUFFER): Continue supplementation check level before next visit. [...] visit. Assessment & Plan (11/03/2021 3:40 PM WHEEL BUFFER): Continue B12 supplementation and check level in 1 year. Assessment & Plan (05/11/2021 4:52 PM CDT): Continue supplementation and check level in 6 months Assessment & Plan (10/14/2020 10:31 AM WHEEL BUFFER): Continue B12 supplementation check level in 1 year. Assessment & Plan (09/24/2019 2:43 PM WHEEL BUFFER): Continue supplementation check level before next visit. [...] 08/2019. Assessment & Plan (11/03/2021 3:40 PM WHEEL BUFFER): Patient declines repeat bone density scanning is aware the risks this poses to her health. Assessment & Plan (10/14/2020 10:30 AM WHEEL BUFFER): Continue calcium, vitamin-D, weight-bearing exercise repeat bone density scan 1 COVID-19 issues improved. Would recommend switching to Prolia at that time if needed as she is already completed 5 years of oral bisphosphonate therapy. Assessment & Plan (09/24/2019 2:43 PM WHEEL BUFFER): Continue calcium, vitamin-D, weight-bearing exercise, Actonel started [...] recommended. Assessment & Plan (11/03/2021 3:40 PM WHEEL BUFFER): Well controlled on the current regimen. Avoidance of salt, proper body weight, and routine exercise recommended. Assessment & Plan (05/11/2021 4:51 PM CDT): Well controlled on the current regimen. Avoidance of salt, proper body weight, and routine exercise recommended. Assessment & Plan (10/14/2020 10:30 AM WHEEL BUFFER): Well controlled on the current regimen. Avoidance of salt, proper body weight, and routine exercise recommended. Assessment & Plan (09/24/2019 2:43 PM WHEEL BUFFER): Well controlled on the current regimen. Avoidance [...] clorazepate Assessment & Plan (11/03/2021 3:40 PM WHEEL BUFFER): Stable on clorazepate as needed. Assessment & Plan (05/11/2021 4:51 PM CDT): Well controlled on clorazepate. Assessment & Plan (10/14/2020 10:31 AM WHEEL BUFFER): Well controlled with an occasional clorazepate. Assessment [...] 02/12/2010 TD Preservative Free 07/26/2006 Tdap 08/24/2016 Social History Tobacco Use Types Packs/Day Years [...] on file Legal Sex Female 10:08 AM WHEEL BUFFER Gender Identity Not on file Sexual Orientation Not on file Last Filed Vital Signs Vital Sign Reading [...] 05/04/2022 1:50 PM CDT Plan of Treatment Not on file Procedures Procedure Name Priority Date/Time Associated Diagnosis [...] Cande ging Impressions 10/22/2016 Osteopenia Historical Provider IMPaty DXA PROCEDURES Final Result * Screening Mammogram 2D Bilateral (09/10/2016) Anatomical Region Laterality Modality Breast Bilateral Mammography Historical Provider IMG MAMMO PROCEDURES Colleen l Result * Colonoscopy (09/24/2015) Anatomical Region Laterality Modality Other Historical Provider ENDOSCOPY PROCEDURES Colleen l Result from Last 3 Months or Most Recently Relevant to Health Maintenance Insurance [employer] MEDICARE ADVANTAGE [address] [id number] Care Teams Chief Green Officer Relationship Specialty Start Date End Date Kostas Weber MD PCP - General 02/18/17 Jaime Jacobsen MD Medical Oncologist/Grocery Stocker Hematology and Oncology 10/26/18
--- OUTSIDE RECORDS SUMMARY | 2025-03-01 15:50 | XMS_ITS | Continuity of Care Document ---
Author Organization [facility] Address [address] [place] [address] [address] [place] [address] Phone Care Team Providers Care Medical Sales Representative Name Role Phone Rustam Goodwin Unavailable Unavailable Procedures Procedure Date Office/outpatient Visit, Est Eye Exam & Treatment Advance Directives Directive Yes / No Effective Date File Name No Information Encounters Encounter Description Practice Location Reason(s) For Visit Diagnoses Date Provider Providers Copied on Encounter Office/outpat ient Visit, Est [facility], [address] [place] [address] [address], [place], [place], [id number], tel:[phone] [facility] [place] No Information 9-201 0 Christa Easton. [address] [facility] [address], [address], [place], [place], [facility], [place]. tel:[phone] [facility], [address] [place] [address] [address], [place], [place], [id number], tel:[phone] [facility] No Information 3-200 8 Christa Easton. [address], [address], [place], [address], [place]. tel:[phone] Family History Family Member Type Diagnosis Age At Onset No Information Payers Payer name Insurance type Covered alliance party ID Authoriza tion(s) [place] CI [id number] [facility] CI [id number] Social History Type Description Quantity Date Captured Comments Sex Female Smoking Status No Information Chief Complaint And Reason For Visit No Information Reason For Referral Reason For Referral No Information History Of Present Illness Encounter Date Complaint History Of Prese nt Illness No Information Functional Status Date Functional Assessmen t No Information Instructions Date Instruction Additional Infor mation No Information Assessments Type Assessment Date No Information Patient Care Teams Name Effective Dates (start - stop) Status Members No Information
--- OUTSIDE RECORDS SUMMARY | 2025-03-01 15:50 | XMS_ITS | Clinical Summary ---
Author Organization [facility] Address [address] [facility] [place] [address] Care Team Providers Care Diesel Service Journeyman Name Role Phone Kostas Weber MD Primary Care Provider [phone] Source Comments [facility],non-[facility] Affiliates and Associated Physician Practices is amultiple site organization consisting of ambulatory clinics and hospital sitesin [place], [place], [place] and [place]. This disclosure is being madepursuant to the Care Everywhere program and may not contain all information available regarding this patient. Last updated 18.[facility] [employer] Allergies Active Allergy Reactions Criticality Noted Date Comments Latex Itching Low 09/12/2017 Medications * Be aware that medications may not be up to date on this document. Alwaysverify current medications with the patient. Medication Sig Dispensed Refills Start Date End Date Status atenolol-chlorthalid one (TENORETIC 50) 50-25 MG tablet Take 1 tablet by mouth 09/19/2018 Active clorazepate (TRANXENE) 3.75 MG tablet Take 3.75 mg by mouth 09/19/2018 Active risedronate Sodium (ACTONEL) 150 MG tablet 150 mg 09/18/2018 Active benzonatate (TESSALON) 100 MG capsuleIndications:U pper airway cough syndrome Take 1 capsule by mouth 3 times daily as needed for Cough 30 capsule 11/27/2018 Active Social History Tobacco Use Types Packs/Day Years Used Date Smoking Tobacco: Never Smokeless Tobacco: Never Sex and Gender Information Value Date Recorded Sex Assigned at Not on file Gender Identity Not on file Sexual Orientation Not on file Last Filed Vital Signs Vital Sign Reading Time Taken Comments Blood Pressure 122/74 11/27/2018 2:30 PM CYBER POLICY AND STRATEGY PLANNER Pulse 72 11/27/2018 2:30 PM CYBER POLICY AND STRATEGY PLANNER Temperature 36.8 C (98.2 F) 11/27/2018 2:30 PM CYBER POLICY AND STRATEGY PLANNER Respiratory Rate 16 11/27/2018 2:30 PM CYBER POLICY AND STRATEGY PLANNER Oxygen Saturation 95% 11/27/2018 2:30 PM CYBER POLICY AND STRATEGY PLANNER Inhaled Oxygen Concentration - - Weight 55.8 kg (123 lb) 11/27/2018 2:30 PM CYBER POLICY AND STRATEGY PLANNER Height 162.6 cm (5' 4 ) 11/27/2018 2:30 PM CYBER POLICY AND STRATEGY PLANNER Body Mass Index 21.11 11/27/2018 2:30 PM CYBER POLICY AND STRATEGY PLANNER Plan of Treatment Health Maintenance Due Date Last Done Comments BONE DENSITY TESTING 1939 DTAP/TDAP/TD VACCINES (1 - Tdap) 1958 PNEUMOCOCCAL VACCINE 50+ (1 of 1 - PCV) 1989 ZOSTER VACCINE (1 of 2) 1989 Respiratory Syncytial Virus (RSV) Vaccine Pt: or over 60 yrs (1 - 1-dose 75+ series) 2014 COVID-19 VACCINE ( - season) 2024 DEPRESSION SCREENING 11/21/2024 MEDICARE AWV CALENDAR YEAR 2024 INFLUENZA VACCINE (Season Ended) 2025 09/19/2018, 09/12/2017, 08/24/2016, Additional history exists HEPATITIS B VACCINE Aged Out No longe r eligible based on patient's age to complete this topic HIB VACCINE Aged Out No longer eligi ble based on patient's age to complete this topic HPV VACCINE Aged Out No longer eligi ble based on patient's age to complete this topic MENINGOCOCCAL (Group B) VACCINE SHARED DECISION-MAKING Aged Out No longer eligible based on patient's age to complete this topic MENINGOCOCCAL GROUPS A/C/Y/W VACCINE Aged Out No longer eligible based on patient's age to complete this topic Care Teams Diesel Service Journeyman Relationship Specialty Start Date End Date Kostas Weber MD PCP - General Internal Medicine 11/27/18
--- OUTSIDE RECORDS SUMMARY | 2025-03-01 15:50 | XMS_ITS | Encounter Summary ---
Author Organization [facility] Address [address] [place] [address] Phone Care Team Providers Care Cargo Service Agent Name Role Phone Kostas Weber MD Primary Care Provider [phone] Jaime Jacobsen MD Unavailable [phone] Encounter Details Date Type Department Care Team (Late st Contact Info) Description 12/19/2017 Orders Only [facility] ProviderSarita MD [address] [place] [address] Social History Tobacco Use Types Packs/Day Years Used Date Smoking Tobacco: Never Smokeless Tobacco: Never Alcohol Use Standard Drinks/Week Comments Yes 0 (1 standard drink = 0.6 oz pur e alcohol) Comments Unknown Sex and Gender Information Value Date Recorded Sex Assigned at Not on file Legal Sex Female 10:08 AM GEODUCK DIVER Gender Identity Not on file Sexual Orientation Not on file documented as of this encounter Plan of Treatment Not on file documented as of this encounter Procedures Procedure Name Priority Date/Time Associated Diagnosis Comments DISCHARGE LABORATORY CUMULATIVE REPORT 12/19/2017 12:00 AM GEODUCK DIVER documented in this encounter Results * DISCHARGE LABORATORY CUMULATIVE REPORT (12/19/2017 12:00 AM GEODUCK DIVER) Narrative 12/19/2017 12:00 AM GEODUCK DIVER Ordered by an unspecified provider. us Historical Provider LAB BLOOD ORDERABLES Colleen l Result documented in this encounter Visit Diagnoses Not on filedocumented in this encounter Care Teams Cargo Service Agent Relationship Specialty Start Date End Date Kostas Weber MD PCP - General 02/18/17 Jaime Jacobsen MD Medical Oncologist/Border Guard Hematology and Oncology 10/26/18 documented as of this encounter
--- OUTSIDE RECORDS SUMMARY | 2025-03-01 15:50 | XMS_ITS | Encounter Summary ---
Author Organization [facility] Address [address] [place] [address] Phone Care Team Providers Care Answering Service Agent Name Role Phone Kostas Weber MD Primary Care Provider [phone] Jaime Jacobsen MD Unavailable [phone] Encounter Details Date Type Department Care Team (Late st Contact Info) Description 03/06/2018 Orders Only [facility] ProviderSarita MD [address] [place] [id number] Social History Tobacco Use Types Packs/Day Years Used Date Smoking Tobacco: Never Smokeless Tobacco: Never Alcohol Use Standard Drinks/Week Comments Yes 0 (1 standard drink = 0.6 oz pur e alcohol) Comments Unknown Sex and Gender Information Value Date Recorded Sex Assigned at Not on file Legal Sex Female 10:08 AM SENIOR ACCOUNTING CLERK Gender Identity Not on file Sexual Orientation Not on file documented as of this encounter Plan of Treatment Not on file documented as of this encounter Procedures Procedure Name Priority Date/Time Associated Diagnosis Comments DISCHARGE LABORATORY CUMULATIVE REPORT 03/06/2018 12:00 AM CDT documented in this encounter Results * DISCHARGE LABORATORY CUMULATIVE REPORT (03/06/2018 12:00 AM CDT) Narrative 03/06/2018 12:00 AM CDT Ordered by an unspecified provider. us Historical Provider LAB BLOOD ORDERABLES Colleen l Result documented in this encounter Visit Diagnoses Not on filedocumented in this encounter Care Teams Answering Service Agent Relationship Specialty Start Date End Date Kostas Weber MD PCP - General 02/18/17 Jaime Jacobsen MD Medical Oncologist/Architecture Drafter Hematology and Oncology 10/26/18 documented as of this encounter
[2025-03-01 16:36] VITALS: BP 168/99; PULSE 45; RESP 15; TEMP 36.4; O2SAT 99
--- NOTE | 2025-03-01 16:37 | ECG_ITS ---
Test Date: 2025-03-01 16:47:24 Measurements Intervals Eugene Rate: 45 P: 79 AR: 213 QRS: -18 QRSD: 105 T: 31 QT: 481 QTc: 420 Interpretive Statements SINUS BRADYCARDIA WITH FIRST DEGREE AV BLOCK WITH OCCASIONAL SUPRAVENTRICULAR PREMATURE COMPLEXES ANTEROSEPTAL INFARCT, AGE INDETERMINATE BORDERLINE ST ABNORMALITY- LAT/HIGH LAT LEADS BASELINE ARTIFACT- I, II, AVR, AVL, AVF ABNORMAL ECG No previous ECG available for comparison Electronically Signed On 03-01-2025 18:41:13 CDT by Johnson Tierney D.O.
--- OUTSIDE RECORDS SUMMARY | 2025-03-01 16:49 | XMS_ITS | Continuity of Care Document ---
Author Organization [facility] Address [address] [place] [address] [address] [place] [address] Phone Care Team Providers Care Mill Helper Name Role Phone Rustam Goodwin Unavailable Unavailable Procedures Procedure Date Office/outpatient Visit, Est Eye Exam & Treatment Advance Directives Directive Yes / No Effective Date File Name No Information Encounters Encounter Description Practice Location Reason(s) For Visit Diagnoses Date Provider Providers Copied on Encounter Office/outpat ient Visit, Est [facility], [address] [place] [address] [address], [place], [place], [id number], tel:[phone] [facility] [place] No Information 9-201 0 Christa Easton. [address] [facility] [address], [place], [place], [facility], [place]. tel:[phone] [facility], [address] [place] [address] [address], [place], [place], [id number], tel:[phone] [facility] No Information 3-200 8 Christa Easton. [address] [facility], [place], [address], [place]. tel:[phone] Family History Family Member Type Diagnosis Age At Onset No Information Payers Payer name Insurance type Covered alliance party ID Authoriza tion(s) [place] [id number] [facility] CI [id number] Social History Type Description Quantity Date Captured [...]
--- OUTSIDE RECORDS SUMMARY | 2025-03-01 16:49 | XMS_ITS | Clinical Summary ---
Author Organization [facility] Address [address] [place] [address] Care Team Providers Care Print Binding And Finishing Worker Name Role Phone Kostas Weber MD Primary Care Provider [phone] [facility],non-research medical center Affiliates and Associated Physician Practices is amultiple site organization consisting of ambulatory clinics and hospital sitesin [place], [place], [place] and [place]. This disclosure is being madepursuant to the Care Everywhere program and may not contain all information available regarding this patient. Last updated 18.[facility] [employer] Allergies Active Allergy Reactions Criticality Noted Date [...] Comments Blood Pressure 122/74 11/27/2018 2:30 PM HOT BOX CHECKER Pulse 72 11/27/2018 2:30 PM HOT BOX CHECKER Temperature 36.8 C (98.2 F) 11/27/2018 2:30 PM HOT BOX CHECKER Respiratory Rate 16 11/27/2018 2:30 PM HOT BOX CHECKER Oxygen Saturation 95% 11/27/2018 2:30 PM HOT BOX CHECKER Inhaled Oxygen Concentration - - Weight 55.8 kg (123 lb) 11/27/2018 2:30 PM HOT BOX CHECKER Height 162.6 cm (5' 4 ) 11/27/2018 2:30 PM HOT BOX CHECKER Body Mass Index 21.11 11/27/2018 2:30 PM HOT BOX CHECKER Plan of Treatment Health Maintenance Due Date [...] age to complete this topic Care Teams Print Binding And Finishing Worker Relationship Specialty Start Date End Date Kostas Weber MD PCP - General Internal Medicine 11/27/18
[2025-03-01 17:18] LABS: Add Urine Microscopic? YES; Appearance Urine Cloudy (Clear); Bacteria Urine 4+ /hpf; Bilirubin Urine Negative (Negative); Blood Urine 3+ (Negative); Color Urine Dark Yellow (Yellow); Glucose Urine UA Negative (Negative); Hyaline Casts Urine Present /lpf; Ketones Urine Trace mg/dL (Negative); Leukocyte Esterase Ur 2+ LEU/UL (Negative); Mucus Urine Present /lpf; Need Manual Microscopic Reviewed; Nitrate Urine Positive (Negative); Protein Urine 2+ mg/dL (Negative); RBC Urine >100 /hpf (0-2); Specific Grav Ur 1.023 (1.001-1.035); Squamous Epithelial Cell Urine None Seen /hpf (Few); WBC Urine >100 /hpf (0-3); pH Urine 5.5 (5.0-9.0)
--- NOTE | 2025-03-01 18:31 | ED_ITS ---
HPI - General Adult General Chief complaint: Back Pain/Injury <Alexis Arguello MD - Last Filed: 03/01/25 19:12> Stated complaint: Fall-injury to back <Alexis Arguello MD - Last Filed: 03/01/25 19:12> Time Seen by Provider: 03/01/25 16:31 <Alexis Arguello MD - Last Filed: 03/01/25 19:12> History of Present Illness HPI narrative: Patient has impaired memory. This is an 84-year-old female presenting to the ED with chief complaint of a fall. Patient was in the restroom when she says she fell. She is not sure why she fell. She now has pain in the in the left lumbar region. Patient denies head trauma. She denies loss of conscious. She denies syncope. She denies fevers chills chest pain difficulty breathing or abdominal pain. She denies dysuria but notes that she has been urinating more than usual. She has a history of frequent UTIs. <Alexis Arguello MD - Last Filed: 03/01/25 19:12> Related Data Home medications: Home Medications ?Medication ?Instructions ?Recorded ?Confirmed ?Last Taken ?Type sertraline 25 mg tablet 25 mg PO DAILY 04/17/24 09/12/24 Unknown History <Alexis Arguello MD - Last Filed: 03/01/25 19:12> Allergies/adverse reactions: Allergies Allergy/AdvReac Type Severity Reaction Status Date / Time latex Allergy Hives Verified 03/01/25 15:47 <Alexis Arguello MD - Last Filed: 03/01/25 19:12> [facility] Past Medical History Medical History: Medical History Hypertension Colon cancer Status post resection and chemotherapy in 2007. Mild cognitive impairment <Alexis Arguello MD - Last Filed: 03/01/25 19:12> Surgical History Surgical History: Surgical History History of partial colectomy History of colonoscopy with polypectomy History of cholecystectomy <Alexis Arguello MD - Last Filed: 03/01/25 19:12> Family History Family History: Family History Father Carcinoma of colon Daughter No problems noted. Mother Heart attack Cerebrovascular accident <Alexis Arguello MD - Last Filed: 03/01/25 19:12> Social History Social History: Social History Social History: Surrogate medical decision maker: Aidan Simms, son. Code status: Full code. Smoking status: Never smoker Second hand tobacco smoke exposure: No Alcohol intake: never Substance use: never Substance use type: does not use Do You Feel Safe in your Home?: Yes Lack of Transportation: No Lack of Food: Never True Current Housing: I Have Housing Concerned About Future Housing: No Difficulty Paying Gas/Electric Bills: No Difficulty Paying for Meds: No Currently Unemployed: No Education: High School Diploma/GED Difficulty w/ Childcare or Family Care: No Living arrangements: alone Occupation/Education: retired Spiritual care concerns: No <Alexis Arguello MD - Last Filed: 03/01/25 19:12> Exam 2 Narrative: APPEARANCE: No apparent distress. Head: atraumatic. EYES: EOMI, NOSE: Atraumatic NECK/back: Midline lumbar tenderness and left-sided paralumbar muscle tenderness RESPIRATORY: No increased rate of breathing CTAB CARDIOVASCULAR: Bradycardic, no peripheral edema ABDOMINAL: Non-distended soft nontender MUSCULOSKELETAl: No obvious deformities, added to a trauma exam performed with tenderness over the low lumbar and paralumbar muscles but no other injuries. NEURO: Alert. Moving 4/4 extremities SKIN:: Warm, dry. Normal color PSYCHIATRIC: Normal affect <Alexis Arguello MD - Last Filed: 03/01/25 19:12> Course Vital Signs Vital signs: Vital Signs Temperature 36.4 C L 03/01/25 16:36 Pulse Rate 45 L 03/01/25 16:36 Respiratory Rate 15 03/01/25 16:36 Blood Pressure 168/99 H 03/01/25 16:36 Pulse Oximetry 99 03/01/25 16:36 Temperature 36.4 C 03/01/25 19:51 Pulse Rate 50 L 03/01/25 19:51 Respiratory Rate 16 03/01/25 19:51 Blood Pressure 150/61 H 03/01/25 19:51 Pulse Oximetry 100 03/01/25 19:51 <Alexis Arguello MD - Last Filed: 03/01/25 19:12> Vital Signs Temperature 36.4 C L 03/01/25 16:36 Pulse Rate 45 L 03/01/25 16:36 Respiratory Rate 15 03/01/25 16:36 Blood Pressure 168/99 H 03/01/25 16:36 Pulse Oximetry 99 03/01/25 16:36 Temperature 36.4 C 03/01/25 19:51 Pulse Rate 50 L 03/01/25 19:51 Respiratory Rate 16 03/01/25 19:51 Blood Pressure 150/61 H 03/01/25 19:51 Pulse Oximetry 100 03/01/25 19:51 <Denver Sun MD - Last Filed: 03/01/25 20:38> Medical Decision Making MDM Narrative Medical decision making narrative: -Course: A 84-year-old female presenting after a ground level fall. CT of the L-spine and x-rays of pelvis were negative for acute bony injury. Patient's urine was positive for urinary tract infection. She has been placed on ceftriaxone. Given 1 L LR. Additionally she is bradycardic in the 40s. EKG shows sinus bradycardia with first-degree AV block and occasional PVCs. She is on atenolol which will be held. Laboratory studies have been ordered to evaluate for electrolyte abnormalities or ischemic cardiac injury. Patient will be signed out to the oncoming physician pending completion of her workup. -DDX includes but is not limited to: Compression fracture, hip fracture, UTI dehydration -Co-morbidities complicating care: Cognitive impairment, hypertension -Social determinants of health: Patient lives alone, denies use drugs or alcohol <Alexis Arguello MD - Last Filed: 03/01/25 19:12> -Course: A 84-year-old female presenting after a ground level fall. CT of the L-spine and x-rays of pelvis were negative for acute bony injury. Patient's urine was positive for urinary tract infection. She has been placed on ceftriaxone. Given 1 L LR. Additionally she is bradycardic in the 40s. EKG shows sinus bradycardia with first-degree AV block and occasional PVCs. She is on atenolol which will be held. Laboratory studies have been ordered to evaluate for electrolyte abnormalities or ischemic cardiac injury. Patient will be signed out to the oncoming physician pending completion of her workup. -DDX includes but is not limited to: Compression fracture, hip fracture, UTI dehydration -Co-morbidities complicating care: Cognitive impairment, hypertension -Social determinants of health: Patient lives alone, denies use drugs or alcohol Laboratory studies were obtained on the patient showed normal CBC CMP showed no significant abnormality Patient's heart rate has been fluctuating between 40 and 50 Plan will be to admit the patient for observation hold her atenolol and also treat her UTI <Denver Sun MD - Last Filed: 03/01/25 20:38> Vital Signs Vital Signs: Vital Signs Temperature 36.4 C L 03/01/25 16:36 Pulse Rate 45 L 03/01/25 16:36 Respiratory Rate 15 03/01/25 16:36 Blood Pressure 168/99 H 03/01/25 16:36 Pulse Oximetry 99 03/01/25 16:36 Temperature 36.4 C 03/01/25 19:51 Pulse Rate 50 L 03/01/25 19:51 Respiratory Rate 16 03/01/25 19:51 Blood Pressure 150/61 H 03/01/25 19:51 Pulse Oximetry 100 03/01/25 19:51 <Alexis Arguello MD - Last Filed: 03/01/25 19:12> Vital Signs Temperature 36.4 C L 03/01/25 16:36 Pulse Rate 45 L 03/01/25 16:36 Respiratory Rate 15 03/01/25 16:36 Blood Pressure 168/99 H 03/01/25 16:36 Pulse Oximetry 99 03/01/25 16:36 Temperature 36.4 C 03/01/25 19:51 Pulse Rate 50 L 03/01/25 19:51 Respiratory Rate 16 03/01/25 19:51 Blood Pressure 150/61 H 03/01/25 19:51 Pulse Oximetry 100 03/01/25 19:51 <Denver Sun MD - Last Filed: 03/01/25 20:38> Lab Data Result diagrams: 03/01/25 18:47 03/01/25 18:47 <Alexis Arguello MD - Last Filed: 03/01/25 19:12> Labs: Lab Results 03/01/25 03/01/25 Range/Units 16:52 18:47 WBC 5.5 (4.5-10.0) K/mm3 RBC 4.29 (4.2-5.4) M/mm3 Hgb 12.6 (12.0-15.0) g/dL Hct 38.1 (37.0-47.0) % MCV 88.8 (80-100) fl MCH 29.4 (26-34) pg MCHC 33.1 (32-36) g/dl RDW 13.2 (11.5-14.5) % Plt Count 155 (150-375) k/mm3 MPV 9.6 (7.4-10.4) fl Immature Gran % (Auto) 0.2 (0-0.5) % Neut % (Auto) 67.2 (45.5-73.1) % Lymph % (Auto) 25.9 (18.3-44.2) % Dauphin % (Auto) 4.6 (2.6-8.5) % Eos % (Auto) 1.6 (0-4.4) % Baso % (Auto) 0.5 (0.2-1.2) % Lymph # (Auto) 1.42 (0.9-3.2) K/mm3 Da[place]hin # (Auto) 0.3 (0.1-0.6) K/mm3 Eos # (Auto) 0.1 (0-0.3) K/mm3 Baso # (Auto) 0.0 (0.0-0.1) K/mm3 Abs Immat Gran (auto) 0.01 (0.00-0.031) K/mm3 Absolute Neuts (auto) 3.7 (1.3-6.7) K/mm3 Absolute Nucleated RBC 0.000 (0.0-0.012) K/mm3 Nucleated RBC % 0.0 (0.0-0.2) % Sodium 139 (137-145) mmol/L Potassium 3.4 (3.4-5.0) mmol/L Chloride 100 (98-107) mmol/L Carbon Dioxide 32 H (22-30) mmol/L Anion Gap 7 (4-12) mmol/L BUN 22 H (7-17) mg/dL Creatinine 0.95 (0.7-1.0) mg/dL Estim Creat Clear Calc 27 ml/min Estimated GFR 56 L (59 - ) Glucose 102 (65-110) mg/dL Calcium 9.6 (8.4-10.2) mg/dL Phosphorus 3.5 (2.5-4.5) mg/dL Magnesium 1.9 (1.6-2.3) mg/dL Total Bilirubin 1.2 (0.2-1.3) mg/dL AST 21 (14-36) U/L ALT 14 (6-35) U/L Alkaline Phosphatase 63 (38-126) U/L Troponin I < 0.012 (0.000-0.034) ng/mL Total Protein 7.0 (6.3-8.2) g/dL Albumin 4.1 (3.5-5.1) g/dL TSH (Reflex) 0.779 (0.465-4.68) uIU/mL Urine Color Dark yellow (Yellow) Urine Appearance Cloudy H (Clear) Urine pH 5.5 (5.0-9.0) Ur Specific Jackson 1.023 (1.001-1.035) Urine Protein 2+ H (Negative) mg/dL Urine Glucose (UA) Negative (Negative) mg/dL Urine Ketones Trace H (Negative) mg/dL Ur Blood (Man) 3+ H (Negative) Urine Nitrate Positive H (Negative) Urine Bilirubin Negative (Negative) Urine Urobilinogen 1.0 (<2.0) mg/dL Add Ur Microanalysis Reviewed Leukocyte Esterase Rfl 2+ H (Negative) SEEMA/UL Urine RBC >100 H (0-2) /hpf Urine WBC >100 H (0-3) /hpf Ur Squamous Epith Cells None seen (Few) /hpf Urine Bacteria 4+ H /hpf Urine Casts 6-10 Hyaline Casts Present (None) /lpf Urine Mucus Present /lpf <Alexis Arguello MD - Last Filed: 03/01/25 19:12> Lab Results 03/01/25 03/01/25 Range/Units 16:52 18:47 WBC 5.5 (4.5-10.0) K/mm3 RBC 4.29 (4.2-5.4) M/mm3 Hgb 12.6 (12.0-15.0) g/dL Hct 38.1 (37.0-47.0) % MCV 88.8 (80-100) fl MCH 29.4 (26-34) pg MCHC 33.1 (32-36) g/dl RDW 13.2 (11.5-14.5) % Plt Count 155 (150-375) k/mm3 MPV 9.6 (7.4-10.4) fl Immature Gran % (Auto) 0.2 (0-0.5) % Neut % (Auto) 67.2 (45.5-73.1) % Lymph % (Auto) 25.9 (18.3-44.2) % Dauphin % (Auto) 4.6 (2.6-8.5) % Eos % (Auto) 1.6 (0-4.4) % Baso % (Auto) 0.5 (0.2-1.2) % Lymph # (Auto) 1.42 (0.9-3.2) K/mm3 [place]hin # (Auto) 0.3 (0.1-0.6) K/mm3 Eos # (Auto) 0.1 (0-0.3) K/mm3 Baso # (Auto) 0.0 (0.0-0.1) K/mm3 Abs Immat Gran (auto) 0.01 (0.00-0.031) K/mm3 Absolute Neuts (auto) 3.7 (1.3-6.7) K/mm3 Absolute Nucleated RBC 0.000 (0.0-0.012) K/mm3 Nucleated RBC % 0.0 (0.0-0.2) % Sodium 139 (137-145) mmol/L Potassium 3.4 (3.4-5.0) mmol/L Chloride 100 (98-107) mmol/L Carbon Dioxide 32 H (22-30) mmol/L Anion Gap 7 (4-12) mmol/L BUN 22 H (7-17) mg/dL Creatinine 0.95 (0.7-1.0) mg/dL Estim Creat Clear Calc 27 ml/min Estimated GFR 56 L (59 - ) Glucose 102 (65-110) mg/dL Calcium 9.6 (8.4-10.2) mg/dL Phosphorus 3.5 (2.5-4.5) mg/dL Magnesium 1.9 (1.6-2.3) mg/dL Total Bilirubin 1.2 (0.2-1.3) mg/dL AST 21 (14-36) U/L ALT 14 (6-35) U/L Alkaline Phosphatase 63 (38-126) U/L Troponin I < 0.012 (0.000-0.034) ng/mL Total Protein 7.0 (6.3-8.2) g/dL Albumin 4.1 (3.5-5.1) g/dL TSH (Reflex) 0.779 (0.465-4.68) uIU/mL Urine Color Dark yellow (Yellow) Urine Appearance Cloudy H (Clear) Urine pH 5.5 (5.0-9.0) Ur Specific Jackson 1.023 (1.001-1.035) Urine Protein 2+ H (Negative) mg/dL Urine Glucose (UA) Negative (Negative) mg/dL Urine Ketones Trace H (Negative) mg/dL Ur Blood (Man) 3+ H (Negative) Urine Nitrate Positive H (Negative) Urine Bilirubin Negative (Negative) Urine Urobilinogen 1.0 (<2.0) mg/dL Add Ur Microanalysis Reviewed Leukocyte Esterase Rfl 2+ H (Negative) SEEMA/UL Urine RBC >100 H (0-2) /hpf Urine WBC >100 H (0-3) /hpf Ur Squamous Epith Cells None seen (Few) /hpf Urine Bacteria 4+ H /hpf Urine Casts 6-10 Hyaline Casts Present (None) /lpf Urine Mucus Present /lpf <Denver Sun MD - Last Filed: 03/01/25 20:38> Discharge Plan Discharge Clinical Impression: Acute UTI, Fall, Bradycardia <Alexis Arguello MD - Last Filed: 03/01/25 19:12> Patient Disposition: Still a Patient <Alexis Arguello MD - Last Filed: 03/01/25 19:12> Condition: Stable <Alexis Arguello MD - Last Filed: 03/01/25 19:12> Patient Language: Vincentian <Alexis Arguello MD - Last Filed: 03/01/25 19:12> Prescriptions: No Action sertraline 25 mg tablet 25 mg PO DAILY potassium chloride 20 mEq packet 20 meq PO DAILY Qty: 90 2RF donepezil 5 mg tablet 5 mg PO QHS Qty: 30 5RF ergocalciferol (vitamin D2) 1,250 mcg (50,000 unit) capsule 1,250 mcg PO WEEKLY Qty: 12 1RF atenolol-chlorthalidone 50-25 mg tablet 1 tablet PO DAILY Qty: 90 1RF clorazepate dipotassium 3.75 mg tablet 3.75 mg PO BID PRN (Reason: anxiety) Qty: 60 0RF <Alexis Arguello MD - Last Filed: 03/01/25 19:12> Follow-up/Referrals: Jean Gaviria MD [Primary Care Provider] - <Alexis Arguello MD - Last Filed: 03/01/25 19:12> Time of Disposition: 20:36 <Alexis Arguello MD - Last Filed: 03/01/25 19:12> 20:36 <Denver Sun MD - Last Filed: 03/01/25 20:38>
[2025-03-01] MEDS: LACTATED RINGERS 1,000 ML 999 ML IV CONT (18:56)
--- NOTE | 2025-03-01 19:20 | PC.NURSE ---
per edp dr. laquita agrawal for blood cultures before abx to be started.
[2025-03-01 19:21] LABS: Basophils Percent Auto 0.5 % (0.2-1.2); Eosinophils Absolute Auto 0.1 K/mm3 (0-0.3); Eosinophils Percent Auto 1.6 % (0-4.4); Hematocrit 38.1 % (37.0-47.0); Hemoglobin 12.6 g/dL (12.0-15.0); Immature Granulocyte Absolute 0.01 K/mm3 (0.00-0.031); Immature Granulocyte Percent A 0.2 % (0-0.5); Lymphocytes Absolute Auto 1.42 K/mm3 (0.9-3.2); Lymphocytes Percent Auto 25.9 % (18.3-44.2); Mean Corpuscular HGB Conc 33.1 g/dl (32-36); Mean Corpuscular Hemoglobin 29.4 pg (26-34); Mean Corpuscular Volume 88.8 fl (80-100); Mean Platelet Volume 9.6 fl (7.4-10.4); Monocytes Absolute Auto 0.3 K/mm3 (0.1-0.6); Monocytes Percent Auto 4.6 % (2.6-8.5); Neutrophils Absolute Auto 3.7 K/mm3 (1.3-6.7); Neutrophils Percent Auto 67.2 % (45.5-73.1); Platelet Count Result 155 k/mm3 (150-375); Red Blood Count 4.29 M/mm3 (4.2-5.4); Red Cell Distribution Width 13.2 % (11.5-14.5); White Blood Count 5.5 K/mm3 (4.5-10.0)
[2025-03-01 19:33] LABS: Alanine Aminotransferase 14 U/L (6-35); Albumin Level 4.1 g/dL (3.5-5.1); Alkaline Phosphatase 63 U/L (38-126); Anion Gap 7 mmol/L (4-12); Aspartate Amino Transferase 21 U/L (14-36); Bilirubin,Total 1.2 mg/dL (0.2-1.3); Blood Urea Nitrogen 22 mg/dL (7-17); Calcium 9.6 mg/dL (8.4-10.2); Carbon Dioxide 32 mmol/L (22-30); Chloride 100 mmol/L (98-107); Estimated CRCL calculation 27 ml/min; Estimated Glomerular Filt Rate 56; Glucose 102 mg/dL (65-110); Magnesium 1.9 mg/dL (1.6-2.3); Phosphorus 3.5 mg/dL (2.5-4.5); Potassium 3.4 mmol/L (3.4-5.0); Sodium 139 mmol/L (137-145)
[2025-03-01 19:47] LABS: Troponin I < 0.012 ng/mL (0.000-0.034)
[2025-03-01] MEDS: SODIUM CHLORIDE 0.9% IV 1,000 ML 999 ML IV CONT (19:49)
[2025-03-01 19:51] VITALS: BP 150/61; PULSE 50; RESP 16; TEMP 36.4; O2SAT 100
[2025-03-01 20:03] LABS: Thyroid Stimulating Hormone Reflex 0.779 uIU/mL (0.465-4.68)
--- NOTE | 2025-03-01 20:58 | PC.NURSE ---
this rn placed an external purewick catheter for patient.
[2025-03-01 21:36] VITALS: BMI 19.3
[2025-03-01 21:38] VITALS: BP 124/82; PULSE 49; RESP 14; TEMP 36.3; O2SAT 99
--- NOTE | 2025-03-01 21:53 | ADMGEN ---
This patient, Yolande Juarez, was admitted to Medical Room 342-01. Patient/family oriented to hospital policies and general routines including ID bracelet, bed and alarms, visiting hours, pain management, procedures, bathroom and other care routines, personal items, smoking policy, room service/diet, and visiting hours. Information on how to activate the Rapid Response Team has been discussed. Patient/Family are encouraged to report perceived risks to care and to ask questions if they do not understand what they are told or what they should do.
--- NOTE | 2025-03-01 23:30 | P.HP_ITS ---
H&P: HPI History of Present Illness Date/Time: 03/01/25 23:30 Chief Complaint: 1. Fall 2. Unstable gait Narrative: Yolande Juarez is an 84F with a mHx significant for tremors, dementia, depression, unstable gait With a recent change in her bladder habits warranting increased urinary frequency and urgency, she while making a trip from the bathroom suffered a fall. She landed on her side, denies head trauma, chest pain LOC or preceding vertiginous/dizziness symptoms; At the bedside, she attests to pain in her gluteal region; she also attests to recurrent falls in the recent weeks to months. She does not smoke cigarettes, drink alcohol or consume recreational drugs Work-up findings UA: Bacteria 4+, +nitrite, >100 wBC, 2+ LE CMP significant for CO2 32; AG 7; BUN 22; Cr 0.95; GR 56 Unremarkable CBC Troponin <0.012 ECG: Sinus bradycardia; 1AVB; PVCs CXR: Unremarkable XR Pelvis: Unremarkable Lumbar CT spine: No acute osseous abnormality. Disc bulge at the level of L4-L5 with narrowing of the right foramen and nerve root compression. Yolande Juarez will be admitted, evaluated and managed for an unstable gait, fall, UTI and physical deconditioning Review of Systems Review of Systems: All systems reviewed & are unremarkable except as noted in HPI and below PMFSH Past Medical History Medical History Hypertension Colon cancer Status post resection and chemotherapy in 2007. Mild cognitive impairment Surgical History Surgical History History of partial colectomy History of colonoscopy with polypectomy History of cholecystectomy Family History Family History Father Carcinoma of colon Daughter No problems noted. Mother Heart attack Cerebrovascular accident Social History Social History Social History: Surrogate medical decision maker: Aidan Simms, samantha. Code status: Full code. Smoking status: Never smoker Second hand tobacco smoke exposure: No Alcohol intake: never Substance use: never Substance use type: does not use Do You Feel Safe in your Home?: Yes Lack of Transportation: No Lack of Food: Never True Current Housing: I Have Housing Concerned About Future Housing: No Difficulty Paying Gas/Electric Bills: No Difficulty Paying for Meds: No Currently Unemployed: No Education: High School Diploma/GED Difficulty w/ Childcare or Family Care: No Living arrangements: alone Occupation/Education: retired Spiritual care concerns: No Meds Home Medications and Allergies Home Medications ?Medication ?Instructions ?Recorded ?Confirmed ?Type sertraline 25 mg tablet 25 mg PO DAILY 04/17/24 03/01/25 History potassium chloride 20 mEq oral 20 meq PO DAILY #90 ea 05/31/24 03/01/25 Rx packet donepezil 5 mg tablet 5 mg PO QHS #30 tabs 10/08/24 03/01/25 Rx ergocalciferol (vitamin D2) 1,250 1,250 mcg PO WEEKLY #12 caps 10/11/24 03/01/25 Rx mcg (50,000 unit) capsule atenolol 50 mg-chlorthalidone 25 1 tablet PO DAILY #90 tabs 10/26/24 03/01/25 Rx mg tablet clorazepate dipotassium 3.75 mg 3.75 mg PO BID PRN anxiety #60 tabs 02/11/25 03/01/25 Rx tablet Allergies Allergy/AdvReac Type Severity Reaction Status Date / Time latex Allergy Hives Verified 03/01/25 15:47 Vital Signs Vital Signs - 24 hr 03/01/25 16:36 03/01/25 19:51 03/01/25 21:38 Temperature 97.5 F L 97.6 F 97.3 F L Pulse Rate 45 L 50 L 49 L Respiratory Rate 15 16 14 Blood Pressure 168/99 H 150/61 H 124/82 Pulse Oximetry 99 100 99 Oxygen Delivery 03/01/25 23:00 Temperature Pulse Rate Respiratory Rate Blood Pressure Pulse Oximetry Oxygen Delivery Room Air H&P: Results Labs Labs: Short CBC 03/01/25 Range/Units 18:47 WBC 5.5 (4.5-10.0) K/mm3 Hgb 12.6 (12.0-15.0) g/dL Hct 38.1 (37.0-47.0) % Plt Count 155 (150-375) k/mm3 BMP 03/01/25 18:47 Sodium 139 Potassium 3.4 Chloride 100 Carbon Dioxide 32 H BUN 22 H Creatinine 0.95 Glucose 102 Calcium 9.6 Cardiac Enzymes 03/01/25 Range/Units 18:47 Troponin I < 0.012 (0.000-0.034) ng/mL Liver Function 03/01/25 Range/Units 18:47 Total Bilirubin 1.2 (0.2-1.3) mg/dL AST 21 (14-36) U/L ALT 14 (6-35) U/L Alkaline Phosphatase 63 (38-126) U/L Albumin 4.1 (3.5-5.1) g/dL Urine 03/01/25 Range/Units 16:52 Urine Color Dark yellow (Yellow) Urine Appearance Cloudy H (Clear) Urine pH 5.5 (5.0-9.0) Ur Specific [place] 1.023 (1.001-1.035) Urine Protein 2+ H (Negative) mg/dL Urine Glucose (UA) Negative (Negative) mg/dL Assessment and Plan Assessment and plan (1) Depression: Code(s): F32.A - Depression, unspecified Status: Acute (2) Hypertension: Code(s): I10 - Essential (primary) hypertension Status: Acute (3) Bradycardia: Code(s): R00.1 - Bradycardia, unspecified Status: Acute (4) Unstable gait: Code(s): R26.81 - Unsteadiness on feet Status: Acute Plan Acute and principal conditions 1. Recurrent falls 2. Bradycardia 3. UTI Rx: * IVFs; Ceftriaxone * Urine cultures * Falls and safety precautions * Telemetry monitoring; Hold Atenolol * PT eval and Rx Chronic and stable conditions 1. Recurrent depression w/Anxiety. 2. Dementia 3. Hypertension. Miscellaneous care 1. Code status. DNR 2. VTE prophylaxis. SCDs; ROBBY 3. Nutrition. Heart healthy Quality VTE Prophylaxis VTE prophylaxis: mechanical ordered and pharmacologic ordered Hospitalist MIPS Advance Care Plan I have confirmed that the patient's Advanced Care Plan is present, code status is documented, or surrogate decision maker is listed in patient medical record.: Yes Medication Reconciliation I have utilized all available resources to obtain, update and review the patients current medications (includes all prescriptions, OTC, herbals, cannabis, and nutritional supplements).: Yes The patient is not eligible for med reconciliation; the patient is in a emergent medical situation where delaying treatment would jeopardize the patients health.: Yes
[2025-03-02] VITALS (9 sets, daily range): BP systolic 130–169; BP diastolic 53–78; PULSE 45–57; RESP 14–17; TEMP 36.2–36.6; O2SAT 96–100
[2025-03-02] MEDS: DONEPEZIL HCL 5 MG TABLET PO ×2 (00:08→20:21)
[2025-03-02] MEDS: SODIUM CHLORIDE 0.9% IV 1,000 ML 75 ML IV CONT ×2 (00:08→20:23)
[2025-03-02 05:44] LABS: Basophils Percent Auto 0.5 % (0.2-1.2); Eosinophils Absolute Auto 0.1 K/mm3 (0-0.3); Eosinophils Percent Auto 2.8 % (0-4.4); Hematocrit 33.2 % (37.0-47.0); Hemoglobin 10.9 g/dL (12.0-15.0); Immature Granulocyte Absolute 0.01 K/mm3 (0.00-0.031); Immature Granulocyte Percent A 0.3 % (0-0.5); Lymphocytes Absolute Auto 1.35 K/mm3 (0.9-3.2); Lymphocytes Percent Auto 33.9 % (18.3-44.2); Mean Corpuscular HGB Conc 32.8 g/dl (32-36); Mean Corpuscular Hemoglobin 29.1 pg (26-34); Mean Corpuscular Volume 88.5 fl (80-100); Monocytes Absolute Auto 0.3 K/mm3 (0.1-0.6); Monocytes Percent Auto 6.8 % (2.6-8.5); Neutrophils Absolute Auto 2.2 K/mm3 (1.3-6.7); Neutrophils Percent Auto 55.7 % (45.5-73.1); Platelet Count Result 132 k/mm3 (150-375); Red Blood Count 3.75 M/mm3 (4.2-5.4); Red Cell Distribution Width 13.2 % (11.5-14.5)
[2025-03-02 05:58] LABS: Alanine Aminotransferase 12 U/L (6-35); Albumin Level 3.3 g/dL (3.5-5.1); Alkaline Phosphatase 50 U/L (38-126); Anion Gap 9 mmol/L (4-12); Aspartate Amino Transferase 18 U/L (14-36); Bilirubin,Total 0.9 mg/dL (0.2-1.3); Blood Urea Nitrogen 18 mg/dL (7-17); Calcium 8.8 mg/dL (8.4-10.2); Carbon Dioxide 26 mmol/L (22-30); Chloride 106 mmol/L (98-107); Estimated CRCL calculation 35 ml/min; Estimated Glomerular Filt Rate > 60; Glucose 95 mg/dL (65-110); Potassium 3.1 mmol/L (3.4-5.0); Sodium 141 mmol/L (137-145)
--- NOTE | 2025-03-02 08:50 | P.PNIM_ITS ---
Progress Note: A&P Assessment and Plan (1) Depression: Code(s): F32.A - Depression, unspecified Status: Acute (2) Hypertension: Code(s): I10 - Essential (primary) hypertension Status: Acute (3) Bradycardia: Code(s): R00.1 - Bradycardia, unspecified Status: Acute (4) Unstable gait: Code(s): R26.81 - Unsteadiness on feet Status: Acute (5) Hypokalemia: Code(s): E87.6 - Hypokalemia Status: Acute Plan Acute and principal conditions 1. Recurrent falls 2. Bradycardia 3. UTI Rx: * IVFs; Ceftriaxone * Urine cultures pending * Falls and safety precautions * Telemetry monitoring; Hold Atenolol as bradycardic * PT eval and Rx added daily labs K 3.1- will replace IV and recheck labs. trend daily labs Chronic and stable conditions 1. Recurrent depression w/Anxiety. 2. Dementia 3. Hypertension. Miscellaneous care 1. Code status. DNR 2. VTE prophylaxis. SCDs; ROBBY 3. Nutrition. Heart healthy Time Spent With Patient Time with patient: 25 - 35 minutes Subjective Date/time seen: 03/02/25 08:50 Interval history: Yolande Juarez is an 84F with a mHx significant for tremors, dementia, depression, unstable gait admitted for an unstable gait, fall, UTI and physical deconditioning. UA: Bacteria 4+, +nitrite, >100 wBC, 2+ LE CMP significant for CO2 32; AG 7; BUN 22; Cr 0.95; GR 56 Unremarkable CBC Troponin <0.012 ECG: Sinus bradycardia; 1AVB; PVCs CXR: Unremarkable XR Pelvis: Unremarkable Lumbar CT spine: No acute osseous abnormality. Disc bulge at the level of L4-L5 with narrowing of the right foramen and nerve root compression. Pt is seen and examined. Iv ceftriaxone. PT/OT ordered. Review of Systems Review of Systems: All systems reviewed & are unremarkable except as noted in HPI and below Exam Const: General: comfortable Resp: Effort & Inspection: normal respiratory effort Auscultation: clear to auscultation bilaterally Cardio: Rate: regular rate Rhythm: regular rhythm GI: GI Palp: Yes Soft to palpation Auscultation: normal bowel sounds Psych: Affect: normal affect Objective Data Vital Signs Vital Signs: Vital Signs - 24 hr 03/01/25 16:36 03/01/25 19:51 03/01/25 21:38 Temperature 97.5 F L 97.6 F 97.3 F L Pulse Rate 45 L 50 L 49 L Respiratory Rate 15 16 14 Blood Pressure 168/99 H 150/61 H 124/82 Pulse Oximetry 99 100 99 Oxygen Delivery 03/01/25 23:00 03/02/25 00:00 03/02/25 00:00 Temperature 97.9 F Pulse Rate 47 L 48 L Respiratory Rate 16 Blood Pressure 142/62 H Pulse Oximetry 100 Oxygen Delivery Room Air 03/02/25 04:00 03/02/25 04:00 03/02/25 08:00 Temperature 97.9 F 97.8 F Pulse Rate 45 L 52 L 55 L Respiratory Rate 14 16 Blood Pressure 130/78 138/53 L Pulse Oximetry 98 97 Oxygen Delivery Intake/Output Intake/Output: Intake & Output 02/27/25 02/28/25 03/01/25 03/02/25 23:59 23:59 23:59 23:59 Intake Total 1050 150 Output Total 600 Balance 1050 -450 Meds/Results Medications: Active Medications Generic Name Dose Route Start Last Admin Trade Name Freq PRN Reason Stop Dose Admin Acetaminophen 650 mg 03/01/25 23:24 Acetaminophen 325 Mg Tablet PO Q4H PRN Mild Pain (1-3) or Fever Clorazepate Dipotassium 3.75 mg 03/01/25 23:26 Clorazepate Dipotassium (*Crx) 3.75 Mg Tablet PO BID PRN anxiety Donepezil HCl 5 mg 03/01/25 23:45 03/02/25 00:08 Donepezil Hcl 5 Mg Tablet PO 5 mg QHS ROBBY Administration Heparin Sodium (Porcine) 5,000 units 03/02/25 09:00 Heparin Sodium 5,000 Units/Ml Vial SUB-Q Q12HR ROBBY Ceftriaxone Sodium 1 gm in 50 mls @ 100 mls/hr 03/02/25 18:00 Rocephin 1 Gm/Ns 50 Ml IVPB Q24H ROBBY Sodium Chloride 1,000 mls @ 75 mls/hr 03/01/25 23:25 03/02/25 00:08 Normal Saline Iv IV CONT 75 mls/hr .[id number] ROBBY Administration Melatonin 5 mg 03/01/25 23:24 Melatonin 5 Mg Tablet PO HS PRN Insomnia Ondansetron HCl 4 mg 03/01/25 20:37 Ondansetron Inj 4 Mg/2 Ml Vial IV PUSH Q4H PRN Nausea Radiology Results: ITS Impressions Chest X-Ray 03/01/25 17:41 IMPRESSION: No acute cardiopulmonary pathology. Pelvis X-Ray 03/01/25 17:49 IMPRESSION: No acute osseous abnormality pelvis. Lumbar Spine CT 03/01/25 17:52 IMPRESSION: No acute osseous abnormality. Disc bulge at the level of L4-L5 with narrowing of the right foramen and nerve root compression. Labs Labs: Laboratory Results - last 24 hr 03/01/25 03/01/25 03/02/25 16:52 18:47 05:29 WBC 5.5 4.0 L RBC 4.29 3.75 L Hgb 12.6 10.9 L Hct 38.1 33.2 L MCV 88.8 88.5 MCH 29.4 29.1 MCHC 33.1 32.8 RDW 13.2 13.2 Plt Count 155 132 L MPV 9.6 9.0 Immature Gran % (Auto) 0.2 0.3 Neut % (Auto) 67.2 55.7 Lymph % (Auto) 25.9 33.9 [place] % (Auto) 4.6 6.8 Eos % (Auto) 1.6 2.8 Baso % (Auto) 0.5 0.5 Lymph # (Auto) 1.42 1.35 [place] # (Auto) 0.3 0.3 Eos # (Auto) 0.1 0.1 Baso # (Auto) 0.0 0.0 Abs Immat Gran (auto) 0.01 0.01 Absolute Neuts (auto) 3.7 2.2 Absolute Nucleated RBC 0.000 0.000 Nucleated RBC % 0.0 0.0 Sodium 139 141 Potassium 3.4 3.1 L Chloride 100 106 Carbon Dioxide 32 H 26 Anion Gap 7 9 BUN 22 H 18 H Creatinine 0.95 0.82 Estim Creat Clear Calc 27 35 Estimated GFR 56 L > 60 Glucose 102 95 Calcium 9.6 8.8 Phosphorus 3.5 Magnesium 1.9 Total Bilirubin 1.2 0.9 AST 21 18 ALT 14 12 Alkaline Phosphatase 63 50 Troponin I < 0.012 Total Protein 7.0 6.0 L Albumin 4.1 3.3 L TSH (Reflex) 0.779 Urine Color Dark yellow Urine Appearance Cloudy H Urine pH 5.5 Ur Specific [place] 1.023 Urine Protein 2+ H Urine Glucose (UA) Negative Urine Ketones Trace H Ur Blood (Man) 3+ H Urine Nitrate Positive H Urine Bilirubin Negative Urine Urobilinogen 1.0 Add Ur Microanalysis Reviewed Leukocyte Esterase Rfl 2+ H Urine RBC >100 H Urine WBC >100 H Ur Squamous Epith Cells None seen Urine Bacteria 4+ H Urine Casts 6-10 Hyaline Casts Present Urine Mucus Present Quality VTE Prophylaxis VTE prophylaxis: mechanical ordered and pharmacologic ordered
[2025-03-02] MEDS: HEPARIN SODIUM 5,000 UNITS/ML VIAL 5000 UNITS SUB-Q ×2 (09:25→20:21)
[2025-03-02] MEDS: KCL 20 MEQ/SW 100 ML 100 ML 50 MEQ IVPB (09:26)
[2025-03-03] VITALS: BP 119/61; PULSE 46; PULSE 52; RESP 16; TEMP 36.9; O2SAT 97
[2025-03-03 04:00] VITALS: BP 147/53; PULSE 47; PULSE 48; RESP 16; TEMP 36.6; O2SAT 96
[2025-03-03 05:46] LABS: Basophils Percent Auto 0.5 % (0.2-1.2); Eosinophils Absolute Auto 0.1 K/mm3 (0-0.3); Eosinophils Percent Auto 2.4 % (0-4.4); Hematocrit 32.3 % (37.0-47.0); Hemoglobin 10.5 g/dL (12.0-15.0); Immature Granulocyte Absolute 0.01 K/mm3 (0.00-0.031); Immature Granulocyte Percent A 0.2 % (0-0.5); Lymphocytes Absolute Auto 1.36 K/mm3 (0.9-3.2); Lymphocytes Percent Auto 32.4 % (18.3-44.2); Mean Corpuscular HGB Conc 32.5 g/dl (32-36); Mean Corpuscular Hemoglobin 28.7 pg (26-34); Mean Corpuscular Volume 88.3 fl (80-100); Mean Platelet Volume 9.6 fl (7.4-10.4); Monocytes Absolute Auto 0.3 K/mm3 (0.1-0.6); Monocytes Percent Auto 6.4 % (2.6-8.5); Neutrophils Absolute Auto 2.4 K/mm3 (1.3-6.7); Neutrophils Percent Auto 58.1 % (45.5-73.1); Platelet Count Result 131 k/mm3 (150-375); Red Blood Count 3.66 M/mm3 (4.2-5.4); Red Cell Distribution Width 13.2 % (11.5-14.5); White Blood Count 4.2 K/mm3 (4.5-10.0)
[2025-03-03 05:58] LABS: Alanine Aminotransferase 12 U/L (6-35); Albumin Level 3.4 g/dL (3.5-5.1); Alkaline Phosphatase 51 U/L (38-126); Anion Gap 7 mmol/L (4-12); Aspartate Amino Transferase 19 U/L (14-36); Bilirubin,Total 0.8 mg/dL (0.2-1.3); Blood Urea Nitrogen 19 mg/dL (7-17); Calcium 8.9 mg/dL (8.4-10.2); Carbon Dioxide 27 mmol/L (22-30); Chloride 104 mmol/L (98-107); Estimated CRCL calculation 37 ml/min; Estimated Glomerular Filt Rate > 60; Glucose 98 mg/dL (65-110); Potassium 3.3 mmol/L (3.4-5.0); Sodium 138 mmol/L (137-145)
[2025-03-03 08:00] VITALS: BP 146/56; PULSE 50; RESP 18; TEMP 36.3; O2SAT 96
[2025-03-03] MEDS: HEPARIN SODIUM 5,000 UNITS/ML VIAL 5000 UNITS SUB-Q (09:07)
[2025-03-03 09:10] VITALS: O2SAT 96
[2025-03-03] MEDS: KCL 20 MEQ/SW 100 ML 100 ML 50 MEQ IVPB (10:12)
--- NOTE | 2025-03-03 12:39 | P.DS_ITS ---
DS: Admitting Diagnosis Discharge Date 03/03 Admitting Diagnosis UTI DS: Discharge Diagnosis Discharge Diagnosis (1) Depression: Code(s): F32.A - Depression, unspecified Status: Acute (2) Hypertension: Code(s): I10 - Essential (primary) hypertension Status: Acute (3) Bradycardia: Code(s): R00.1 - Bradycardia, unspecified Status: Acute (4) Unstable gait: Code(s): R26.81 - Unsteadiness on feet Status: Acute (5) Hypokalemia: Code(s): E87.6 - Hypokalemia Status: Acute DS: Summary Hospital Course Hospital Course: Yolande Juarez is an 84F with a mHx significant for tremors, dementia, depression, unstable gait admitted for an unstable gait, fall, UTI and physical deconditioning. Acute and principal conditions 1. Recurrent falls 2. Bradycardia 3. UTI * IVFs; Ceftriaxone- downgrade to Cefdinir and send rx to complete the treatment * Falls and safety precautions * Telemetry monitoring * PT eval and Rxadded daily labs K 3.1- will replace IV and recheck labs. trend daily labs. will recheck as an oupt. Needs to add nutritional shakes at home and stay hydrated. WE were holding atenolol/chlothalidone as she was bradycardic. Status at Discharge Functional status at discharge: uses cane/walker Overall status at discharge: patient is progressing back to baseline Time Spent with Patient Time attestation: Total time spent providing and/or coordinating discharge services: Time spent: Greater than 30 minutes Exam Const: General: comfortable Resp: Effort & Inspection: normal respiratory effort Auscultation: clear to auscultation bilaterally Cardio: Rate: regular rate Rhythm: regular rhythm GI: Auscultation: normal bowel sounds Psych: Affect: normal affect DS: Data Data Completed and Pending Labs on day of discharge: Labs from last 24 hours 03/03/25 05:13 WBC 4.2 L RBC 3.66 L Hgb 10.5 L Hct 32.3 L MCV 88.3 MCH 28.7 MCHC 32.5 RDW 13.2 Plt Count 131 L MPV 9.6 Immature Gran % (Auto) 0.2 Neut % (Auto) 58.1 Lymph % (Auto) 32.4 [place] % (Auto) 6.4 Eos % (Auto) 2.4 Baso % (Auto) 0.5 Lymph # (Auto) 1.36 [place] # (Auto) 0.3 Eos # (Auto) 0.1 Baso # (Auto) 0.0 Abs Immat Gran (auto) 0.01 Absolute Neuts (auto) 2.4 Absolute Nucleated RBC 0.000 Nucleated RBC % 0.0 Sodium 138 Potassium 3.3 L Chloride 104 Carbon Dioxide 27 Anion Gap 7 BUN 19 H Creatinine 0.78 Estim Creat Clear Calc 37 Estimated GFR > 60 Glucose 98 Calcium 8.9 Total Bilirubin 0.8 AST 19 ALT 12 Alkaline Phosphatase 51 Total Protein 6.0 L Albumin 3.4 L Preliminary micro results at discharge 03/01/25 16:52 Urine Culture - Preliminary Unspecified Gram negative bacilli isolated 03/01/25 19:42 Blood Culture - Preliminary Blood 03/01/25 19:43 Blood Culture - Preliminary Blood Discharge Plan Discharge Attending physician on discharge: Placido Barboza Discharging Clinician: Ángela Barbosa Patient Disposition: Home Activity: march shower Diet: regular Discharge Instructions: You were admitted for UTI. We gave you IV antibiotics and you can go home with a script to finish them. Take them as prescribed. PLease stay hydrated and eat protein , fruits/veggies. Stay active. Please f/u with pcp within a week or two. WE were holding your Atenolol-chlorthalidone as your heart rate was low. Please donot restart it until you speak with your pcp. I will send an order for lab work, please do it before seeing your pcp to recheck potassium level. Patient Instructions: Antibiotic Form Patient Language: Latvian Stand Alone Forms: General Discharge Information Follow-up/Referrals: Jean Gaviria MD [Primary Care Provider] - 2 Weeks Discharge Medications: New cefdinir 300 mg capsule 300 mg PO Q12H Qty: 8 0RF Continued sertraline 25 mg tablet 25 mg PO DAILY potassium chloride 20 mEq packet 20 meq PO DAILY Qty: 90 2RF donepezil 5 mg tablet 5 mg PO QHS Qty: 30 5RF ergocalciferol (vitamin D2) 1,250 mcg (50,000 unit) capsule 1,250 mcg PO WEEKLY Qty: 12 1RF Patient Comments: pt takes this 1 day a week clorazepate dipotassium 3.75 mg tablet 3.75 mg PO BID PRN (Reason: anxiety) Qty: 60 0RF Held atenolol-chlorthalidone 50-25 mg tablet 1 tablet PO DAILY Qty: 90 1RF Hold Instructions: Resume on 03/17/25. please f/u with PCP to re eval if you need this BP meds Other Ambulatory Orders: Basic Metabolic Panel (Routine) Timeframe: 1 Week Location: Determined by Patient Ordered By: Ángela Barbosa Date of admission: 03/01/25 20:51 Primary Care Provider: Jean Gaviria Admitting Provider: Gilberto Nieves Attending physician on admission: Gilberto Nieves Condition: Stable Quality VTE Prophylaxis VTE prophylaxis: mechanical ordered and pharmacologic ordered Hospitalist MIPS Heart Failure (Exclusion) Patient has history of Heart Transplant or Left Ventricular Assistive Device?: No IF YES, STOP HERE Heart Failure (Qualifier) Patient has current or prior documentation of LVEF less than or equal to 40%, or mod/servere depressed LVSF?: No IF NO, STOP HERE
== END 2025-03-03 15:00 | disposition home or self-care (01) ==
LOC: ANHED 20:37 → ANH3MED 03-03 12:44
PROVIDERS: Emergency Medicine; Admitting Provider Internal Medicine; Emergency Provider Emergency Medicine; PCP Family Medicine; Visit Provider General Practice
DX: N39.0 Urinary tract infection, site not specified (principal); R00.1 Bradycardia, unspecified; M54.89 Other dorsalgia; W19.XXXA Unspecified fall, initial encounter; R29.6 Repeated falls; R26.81 Unsteadiness on feet; E87.6 Hypokalemia; F41.8 Other specified anxiety disorders; F03.90 Unspecified dementia, unspecified severity, without behavioral disturbance, psychotic disturbance, mood disturbance, and anxiety; I10 Essential (primary) hypertension; R25.1 Tremor, unspecified; R39.15 Urgency of urination; R35.0 Frequency of micturition; Z66 Do not resuscitate; Z85.038 Personal history of other malignant neoplasm of large intestine; Z79.899 Other long term (current) drug therapy
CPT/HCPCS: 36415; 71045; 72131; 72170; 80053; 81001; 83735; 84100; 84443; 84484; 85025; 87040; 87086; 87186; 93005; 96361; 96365; 96372; 96375; 96376; 97161; 97165; 97535; 99285; A9270; G0378; J0696; J1644; J3480; J7030; J7120

== ENCOUNTER 2025-03-20 14:09 | Outpatient (CLI) | payer MEDICARE, SELFPAY ==
[2025-03-20 15:10] LABS: Basophils Percent Auto 0.6 % (0.2-1.2); Eosinophils Absolute Auto 0.1 K/mm3 (0-0.3); Eosinophils Percent Auto 2.4 % (0-4.4); Hematocrit 38.7 % (37.0-47.0); Hemoglobin 12.7 g/dL (12.0-15.0); Immature Granulocyte Absolute 0.05 K/mm3 (0.00-0.031); Immature Granulocyte Percent A 1.1 % (0-0.5); Lymphocytes Absolute Auto 1.46 K/mm3 (0.9-3.2); Lymphocytes Percent Auto 31.5 % (18.3-44.2); Mean Corpuscular HGB Conc 32.8 g/dl (32-36); Mean Corpuscular Hemoglobin 28.9 pg (26-34); Mean Corpuscular Volume 88.2 fl (80-100); Mean Platelet Volume 9.9 fl (7.4-10.4); Monocytes Absolute Auto 0.3 K/mm3 (0.1-0.6); Monocytes Percent Auto 7.1 % (2.6-8.5); Neutrophils Absolute Auto 2.7 K/mm3 (1.3-6.7); Neutrophils Percent Auto 57.3 % (45.5-73.1); Platelet Count Result 167 k/mm3 (150-375); Red Blood Count 4.39 M/mm3 (4.2-5.4); Red Cell Distribution Width 13.2 % (11.5-14.5); White Blood Count 4.6 K/mm3 (4.5-10.0)
--- OUTSIDE RECORDS SUMMARY | 2025-03-20 15:12 | XMS_ITS | Encounter Summary ---
Author Organization [facility] Care Team Providers Care Enterprise Infrastructure Architect Name Role Phone Kostas Weber MD Primary Care Provider [phone] Jaime Jacobsen MD Unavailable [phone] Encounter Details Date Type Department Care Team (Latest Contact Info) Description 12/04/2018 Orders Only [facility] ProviderSarita MD [address] [place], [place] [id number] Social History Tobacco Use Types Packs/Day Years Used Date Smoking Tobacco: Never Smokeless Tobacco: Never Alcohol Use Standard Drinks/Week Comments No 0 (1 standard drink = 0.6 oz pur e alcohol) Comments Unknown Sex and Gender Information Value Date Recorded Sex Assigned at Not on file Legal Sex Female 10:08 AM RUBBER WORKER Gender Identity Not on file Sexual Orientation Not on file documented as of this encounter Plan of Treatment Not on file documented as of this encounter Procedures Procedure Name Priority Date/Time Associated Diagnosis Comments SCAN - LABS 12/20/2018 12:00 AM RUBBER WORKER documented in this encounter Results * SCAN - LABS (12/20/2018 12:00 AM RUBBER WORKER) Narrative 12/20/2018 12:00 AM RUBBER WORKER Ordered by an unspecified provider. us Historical Provider Final Res ult documented in this encounter Visit Diagnoses Not on filedocumented in this encounter Care Teams Enterprise Infrastructure Architect Relationship Specialty Start Date End Date Kostas Weber MD PCP - General 02/18/17 Jaime Jacobsen MD Medical Oncologist/Agronomy Location Manager Hematology and Oncology 10/26/18 documented as of this encounter
--- OUTSIDE RECORDS SUMMARY | 2025-03-20 15:12 | XMS_ITS | Encounter Summary ---
Author Organization [facility] Address [address] [place] [address] Phone Care Team Providers Care Grounds/Maintenance Specialist Name Role Phone Kostas Weber MD Primary Care Provider [phone] Jaime Jacobsen MD Unavailable [phone] Encounter Details Date Type Department Care Team (Late st Contact Info) Description 12/19/2017 Orders Only [place] [facility] ProviderSarita MD [address] [place] [id number] Social History Tobacco Use Types Packs/Day Years Used Date Smoking Tobacco: Never Smokeless Tobacco: Never Alcohol Use Standard Drinks/Week Comments Yes 0 (1 standard drink = 0.6 oz pur e alcohol) Comments Unknown Sex and Gender Information Value Date Recorded Sex Assigned at Not on file Legal Sex Female 10:08 AM POLISHING WHEEL SETTER Gender Identity Not on file Sexual Orientation Not on file documented as of this encounter Plan of Treatment Not on file documented as of this encounter Procedures Procedure Name Priority Date/Time Associated Diagnosis Comments DISCHARGE LABORATORY CUMULATIVE REPORT 12/19/2017 12:00 AM POLISHING WHEEL SETTER documented in this encounter Results * DISCHARGE LABORATORY CUMULATIVE REPORT (12/19/2017 12:00 AM POLISHING WHEEL SETTER) Narrative 12/19/2017 12:00 AM POLISHING WHEEL SETTER Ordered by an unspecified provider. us Historical Provider LAB BLOOD ORDERABLES Colleen l Result documented in this encounter Visit Diagnoses Not on filedocumented in this encounter Care Teams Grounds/Maintenance Specialist Relationship Specialty Start Date End Date Kostas Weber MD PCP - General 02/18/17 Jaime Jacobsen MD Medical Oncologist/Zigzag Stitcher Hematology and Oncology 10/26/18 documented as of this encounter
--- OUTSIDE RECORDS SUMMARY | 2025-03-20 15:12 | XMS_ITS | Clinical Summary ---
Author Organization [facility] Address [address] [place] [address] Care Team Providers Care Toxicologist Name Role Phone Kostas Weber MD Primary Care Provider [phone] Source Comments [facility] Affiliates and Associated Physician Practices is amultiple site organization consisting of ambulatory clinics and hospital sitesin [place], [place], [place] and [place]. This disclosure is being madepursuant to the Care Everywhere program and may not contain all information available regarding this patient. Last updated 18.[facility] Attenex Allergies Active Allergy Reactions Criticality Noted Date Comments Latex Itching Low 09/12/2017 Medications * Be aware that medications may not be up to date on this document. Alwaysverify current medications with the patient. atenolol-chlort halidone (TENORETIC 50) 50-25 MG tablet Take 1 tablet by mouth 09/19/2018 Active clorazepate (TRANXENE) 3.75 MG tablet Take 3.75 mg by mouth 09/19/2018 Active risedronate Sodium (ACTONEL) 150 MG tablet 150 mg 09/18/2018 Active benzonatate (TESSALON) 100 MG capsuleIndicati ons:Upper airway cough syndrome Take 1 capsule by mouth 3 times daily as needed for Cough 30 capsule 11/27/2018 Active Social History Tobacco Use Types Packs/Day Years Used Date Smoking Tobacco: Never Smokeless Tobacco: Never Comments Unknown Sex and Gender Information Value Date Recorded Sex Assigned at Not on file Legal Sex Female 4:22 PM MANAGED CARE DIRECTOR Gender Identity Not on file Sexual Orientation Not on file Last Filed Vital Signs Vital Sign Reading Time Taken Comments Blood Pressure 122/74 11/27/2018 2:30 PM MANAGED CARE DIRECTOR Pulse 72 11/27/2018 2:30 PM MANAGED CARE DIRECTOR Temperature 36.8 C (98.2 F) 11/27/2018 2:30 PM MANAGED CARE DIRECTOR Respiratory Rate 16 11/27/2018 2:30 PM MANAGED CARE DIRECTOR Oxygen Saturation 95% 11/27/2018 2:30 PM MANAGED CARE DIRECTOR Inhaled Oxygen Concentration - - Weight 55.8 kg (123 lb) 11/27/2018 2:30 PM MANAGED CARE DIRECTOR Height 162.6 cm (5' 4 ) 11/27/2018 2:30 PM MANAGED CARE DIRECTOR Body Mass Index 21.11 11/27/2018 2:30 PM MANAGED CARE DIRECTOR Plan of Treatment Health Maintenance Due Date Last Done Comments BONE DENSITY TESTING 1939 DTAP/TDAP/TD VACCINES (1 - Tdap) 1958 PNEUMOCOCCAL VACCINE 50+ (1 of 1 - PCV) 1989 ZOSTER VACCINE (1 of 2) 1989 Respiratory Syncytial Virus (RSV) Vaccine Pt: or over 60 yrs (1 - 1-dose 75+ series) 2014 COVID-19 VACCINE ( - season) 2024 DEPRESSION SCREENING 11/21/2024 INFLUENZA VACCINE (Season Ended) 2025 09/19/2018, 09/12/2017, [...] on patient's age to complete this topic Insurance [facility] MANAGED MEDICARE ADV Care Teams Toxicologist Relationship Specialty Start Date End Date Kostas Weber MD PCP - General Internal Medicine 11/27/18
--- OUTSIDE RECORDS SUMMARY | 2025-03-20 15:12 | XMS_ITS | Encounter Summary ---
Author Organization [facility] Address [address] [place] [address] Phone Care Team Providers Care Desk Representative Name Role Phone Kostas Weber MD Primary Care Provider [phone] Jaime Jacobsen MD Unavailable [phone] Encounter Details Date Type Department Care Team (Late st Contact Info) Description 12/12/2017 Orders Only [facility] ProviderSarita MD [address] [place] [id number] Social History Tobacco Use Types Packs/Day Years Used Date Smoking Tobacco: Never Smokeless Tobacco: Never Alcohol Use Standard Drinks/Week Comments Yes 0 (1 standard drink = 0.6 oz pur e alcohol) Comments Unknown Sex and Gender Information Value Date Recorded Sex Assigned at Not on file Legal Sex Female 10:08 AM CHEMICAL ENGINEERING TEACHER Gender Identity Not on file Sexual Orientation Not on file documented as of this encounter Plan of Treatment Not on file documented as of this encounter Procedures Procedure Name Priority Date/Time Associated Diagnosis Comments DISCHARGE LABORATORY CUMULATIVE REPORT 12/12/2017 12:00 AM CHEMICAL ENGINEERING TEACHER documented in this encounter Results * DISCHARGE LABORATORY CUMULATIVE REPORT (12/12/2017 12:00 AM CHEMICAL ENGINEERING TEACHER) Narrative 12/12/2017 12:00 AM CHEMICAL ENGINEERING TEACHER Ordered by an unspecified provider. us Historical Provider LAB BLOOD ORDERABLES Colleen l Result documented in this encounter Visit Diagnoses Not on filedocumented in this encounter Care Teams Desk Representative Relationship Specialty Start Date End Date Kostas Weber MD PCP - General 02/18/17 Jaime Jacobsen MD Medical Oncologist/Electrical Cad Technician Hematology and Oncology 10/26/18 documented as of this encounter
--- OUTSIDE RECORDS SUMMARY | 2025-03-20 15:12 | XMS_ITS | Continuity of Care Document ---
Author Organization [facility] Address [address] [place] [address] [address] [place] [address] Phone Care Team Providers Care Zmt Operator Name Role Phone Rustam Goodwin Unavailable Unavailable Procedures Procedure Date Office/outpatient Visit, Est Eye Exam & Treatment Advance Directives Directive Yes / No Effective Date File Name No Information Encounters Encounter Description Practice Location Reason(s) For Visit Diagnoses Date Provider Providers Copied on Encounter Office/outpat ient Visit, Est [facility], [address] [place] [address] [address], [place], [place], [id number], tel:[phone] [facility] [place] No Information 9-[address], [address], [place], [place], [facility], [place]. tel:[phone] [facility], [address] [place] [address] [address], [place], [place], [id number], tel:[phone] [facility] No Information 3-[address], [address], [place], [address], [place]. tel:[phone] Family History Family Member Type Diagnosis Age At Onset No Information Payers Payer name Insurance type Covered democrat ID Authoriza tion(s) [place] [id number] [facility] CI [id number] Social History Type Description Quantity Date Captured [...]
--- OUTSIDE RECORDS SUMMARY | 2025-03-20 15:13 | XMS_ITS | Encounter Summary ---
Author Organization [facility] Address [address] [place] [address] Phone Care Team Providers Care Rouge Miller Name Role Phone Kostas Weber MD Primary Care Provider [phone] Jaime Jacobsen MD Unavailable [phone] Encounter Details Date Type Department Care Team (Late st Contact Info) Description 03/06/2018 Orders Only [facility] ProviderSarita MD [address] [place] [address] Social History Tobacco Use Types Packs/Day Years Used Date Smoking Tobacco: Never Smokeless Tobacco: Never Alcohol Use Standard Drinks/Week Comments Yes 0 (1 standard drink = 0.6 oz pur e alcohol) Comments Unknown Sex and Gender Information Value Date Recorded Sex Assigned at Not on file Legal Sex Female 10:08 AM VETERANS SERVICE OFFICER Gender Identity Not on file Sexual Orientation [...] on filedocumented in this encounter Care Teams Rouge Miller Relationship Specialty Start Date End Date Kostas Weber MD PCP - General 02/18/17 Jaime Jacobsen MD Medical Oncologist/Cast Iron Drain Pipe Layer Hematology and Oncology 10/26/18 documented as of this encounter
--- OUTSIDE RECORDS SUMMARY | 2025-03-20 15:13 | XMS_ITS | Clinical Summary ---
Author Organization [facility] Address [address] [place] [address] Care Team Providers Care Single Stayer Operator Name Role Phone Kostas Weber MD Primary Care Provider [phone] Jaime Jacobsen MD Unavailable [phone] Allergies Active Allergy Reactions Criticality Noted Date [...] unremarkable. Assessment & Plan (11/03/2021 3:41 PM PREPARATION SUPERVISOR CANNING): Healthy lifestyle recommended and will repeat again in 1 year. Laboratory workup unremarkable. Memory loss 05/11/2021 Overview (11/03/2021): RPR, TSH, B12, urine heavy metal screen unremarkable 10/26/21 Assessment & Plan (05/11/2021 4:52 PM CDT): Laboratory evaluation before next visit. [facility] MS testing next visit. Leukopenia 10/14/2020 Assessment & Plan (10/14/2020 10:31 AM PREPARATION SUPERVISOR CANNING): Mild and asymptomatic and has been present for several years. Will check again 6 months and refer back to her oncologist if worsens. Healthcare maintenance 09/24/2019 Assessment & Plan (09/24/2019 2:44 PM PREPARATION SUPERVISOR CANNING): Flu shot each August. Tetanus booster every [...] patient. Assessment & Plan (10/14/2020 10:32 AM PREPARATION SUPERVISOR CANNING): Discharged from both Gastroenterology and Oncology who both recommended no further colonoscopies. No current symptoms. Assessment & Plan (09/24/2019 2:43 PM PREPARATION SUPERVISOR CANNING): Seems like her health is good enough [...] 03/20 Assessment & Plan (11/03/2021 3:41 PM PREPARATION SUPERVISOR CANNING): We discussed a comprehensive list of medical [...] needed. Assessment & Plan (10/14/2020 10:31 AM PREPARATION SUPERVISOR CANNING): We discussed a comprehensive list of medical [...] 03/20/2018 Assessment & Plan (11/03/2021 3:41 PM PREPARATION SUPERVISOR CANNING): Timed get up and go test normal. Assessment & Plan (10/14/2020 10:32 AM PREPARATION SUPERVISOR CANNING): Timed get up and go test normal. Assessment & Plan (03/20/2018 2:37 PM CDT): Timed get up and go test normal. Hypokalemia 09/12/2017 Assessment & Plan (05/04/2022 2:06 PM CDT): Well controlled on Klor-Con. Assessment & Plan (10/14/2020 10:32 AM PREPARATION SUPERVISOR CANNING): Better controlled on prescription potassium. Check again [...] months Assessment & Plan (11/03/2021 3:40 PM PREPARATION SUPERVISOR CANNING): Continue current supplementation and check level in 1 year. Assessment & Plan (05/11/2021 4:51 PM CDT): Continue current supplementation and check level in 6 months. Assessment & Plan (10/14/2020 10:31 AM PREPARATION SUPERVISOR CANNING): Continue current supplementation and check level in 1 year. Assessment & Plan (09/24/2019 2:42 PM PREPARATION SUPERVISOR CANNING): Continue supplementation check level before next visit. [...] visit. Assessment & Plan (11/03/2021 3:40 PM PREPARATION SUPERVISOR CANNING): Continue B12 supplementation and check level in 1 year. Assessment & Plan (05/11/2021 4:52 PM CDT): Continue supplementation and check level in 6 months Assessment & Plan (10/14/2020 10:31 AM PREPARATION SUPERVISOR CANNING): Continue B12 supplementation check level in 1 year. Assessment & Plan (09/24/2019 2:43 PM PREPARATION SUPERVISOR CANNING): Continue supplementation check level before next visit. [...] 08/2019. Assessment & Plan (11/03/2021 3:40 PM PREPARATION SUPERVISOR CANNING): Patient declines repeat bone density scanning is aware the risks this poses to her health. Assessment & Plan (10/14/2020 10:30 AM PREPARATION SUPERVISOR CANNING): Continue calcium, vitamin-D, weight-bearing exercise repeat bone density scan 1 COVID-19 issues improved. Would recommend switching to Prolia at that time if needed as she is already completed 5 years of oral bisphosphonate therapy. Assessment & Plan (09/24/2019 2:43 PM PREPARATION SUPERVISOR CANNING): Continue calcium, vitamin-D, weight-bearing exercise, Actonel started [...] recommended. Assessment & Plan (11/03/2021 3:40 PM PREPARATION SUPERVISOR CANNING): Well controlled on the current regimen. Avoidance of salt, proper body weight, and routine exercise recommended. Assessment & Plan (05/11/2021 4:51 PM CDT): Well controlled on the current regimen. Avoidance of salt, proper body weight, and routine exercise recommended. Assessment & Plan (10/14/2020 10:30 AM PREPARATION SUPERVISOR CANNING): Well controlled on the current regimen. Avoidance of salt, proper body weight, and routine exercise recommended. Assessment & Plan (09/24/2019 2:43 PM PREPARATION SUPERVISOR CANNING): Well controlled on the current regimen. Avoidance [...] clorazepate Assessment & Plan (11/03/2021 3:40 PM PREPARATION SUPERVISOR CANNING): Stable on clorazepate as needed. Assessment & Plan (05/11/2021 4:51 PM CDT): Well controlled on clorazepate. Assessment & Plan (10/14/2020 10:31 AM PREPARATION SUPERVISOR CANNING): Well controlled with an occasional clorazepate. 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 Colon cancer (HCC) Family [...] on file Legal Sex Female 10:08 AM PREPARATION SUPERVISOR CANNING Gender Identity Not on file Sexual Orientation [...] Most Recently Relevant to Health Maintenance Insurance [facility] MEDICARE [facility] Address: [facility] [address] [place] [address] [facility] MEDICARE [facility] Address: [facility] [address] [place] [address] Care Teams Single Stayer Operator Relationship Specialty Start Date End Date Kostas Weber MD PCP - General 02/18/17 Jaime Jacobsen MD Medical Oncologist/Hand Cloth Cutter Hematology and Oncology 10/26/18
--- OUTSIDE RECORDS SUMMARY | 2025-03-20 15:13 | XMS_ITS ---
Author Organization [facility] Address [address] [place] [address] Care Team Providers Care Child Caregiver Name Role Phone Kostas Weber MD Primary Care Provider [phone] Jaime Jacobsen MD Unavailable [phone] Active Problems Problem Noted Date Diagnosed Date Mild neurocognitive disorder 11/03/2021 Assessment & Plan (05/04/2022 2:08 PM CDT): Remains stable on can repeat SL[facility]MS before next visit if needed. Lab workup unremarkable. Assessment & Plan (11/03/2021 3:41 PM PUNCHING MACHINE OPERATOR): Healthy lifestyle recommended and will repeat again in 1 year. Laboratory workup unremarkable. Memory loss 05/11/2021 Overview (11/03/2021): RPR, TSH, B12, urine heavy metal screen unremarkable 10/26/21 Assessment & Plan (05/11/2021 4:52 PM CDT): Laboratory evaluation before next visit. [facility] MS testing next visit. Leukopenia 10/14/2020 Assessment & Plan (10/14/2020 10:31 AM PUNCHING MACHINE OPERATOR): Mild and asymptomatic and has been present for several years. Will check again 6 months and refer back to her oncologist if worsens. Healthcare maintenance 09/24/2019 Assessment & Plan (09/24/2019 2:44 PM PUNCHING MACHINE OPERATOR): Flu shot each August. Tetanus [...] patient. Assessment & Plan (10/14/2020 10:32 AM PUNCHING MACHINE OPERATOR): Discharged from both Gastroenterology and Oncology who both recommended no further colonoscopies. No current symptoms. Assessment & Plan (09/24/2019 2:43 PM PUNCHING MACHINE OPERATOR): Seems like her health is [...] 03/20 Assessment & Plan (11/03/2021 3:41 PM PUNCHING MACHINE OPERATOR): We discussed a comprehensive list of medical conditions and proposed recommendations for each. We discussed the importance of increased exercise, fall prevention, proper nutrition, and suggested joining [employer] to accomplish most of these goals. Patient was given an age appropriate Medicare preventive services checklist. Please see the EMR regarding details of their health risk assessment and preventive services checklist. Will see her back in 6 months with metabolic panel blood pressure check sooner if needed. Assessment & Plan (10/14/2020 10:31 AM PUNCHING MACHINE OPERATOR): We discussed a comprehensive list [...] 03/20/2018 Assessment & Plan (11/03/2021 3:41 PM PUNCHING MACHINE OPERATOR): Timed get up and go test normal. Assessment & Plan (10/14/2020 10:32 AM PUNCHING MACHINE OPERATOR): Timed get up and go test normal. Assessment & Plan (03/20/2018 2:37 PM CDT): Timed get up and go test normal. Hypokalemia 09/12/2017 Assessment & Plan (05/04/2022 2:06 PM CDT): Well controlled on Klor-Con. Assessment & Plan (10/14/2020 10:32 AM PUNCHING MACHINE OPERATOR): Better controlled on prescription potassium. [...] months Assessment & Plan (11/03/2021 3:40 PM PUNCHING MACHINE OPERATOR): Continue current supplementation and check level in 1 year. Assessment & Plan (05/11/2021 4:51 PM CDT): Continue current supplementation and check level in 6 months. Assessment & Plan (10/14/2020 10:31 AM PUNCHING MACHINE OPERATOR): Continue current supplementation and check level in 1 year. Assessment & Plan (09/24/2019 2:42 PM PUNCHING MACHINE OPERATOR): Continue supplementation check level before [...] visit. Assessment & Plan (11/03/2021 3:40 PM PUNCHING MACHINE OPERATOR): Continue B12 supplementation and check level in 1 year. Assessment & Plan (05/11/2021 4:52 PM CDT): Continue supplementation and check level in 6 months Assessment & Plan (10/14/2020 10:31 AM PUNCHING MACHINE OPERATOR): Continue B12 supplementation check level in 1 year. Assessment & Plan (09/24/2019 2:43 PM PUNCHING MACHINE OPERATOR): Continue supplementation check level before [...] 08/2019. Assessment & Plan (11/03/2021 3:40 PM PUNCHING MACHINE OPERATOR): Patient declines repeat bone density scanning is aware the risks this poses to her health. Assessment & Plan (10/14/2020 10:30 AM PUNCHING MACHINE OPERATOR): Continue calcium, vitamin-D, weight-bearing exercise repeat bone density scan 1 COVID-19 issues improved. Would recommend switching to Prolia at that time if needed as she is already completed 5 years of oral bisphosphonate therapy. Assessment & Plan (09/24/2019 2:43 PM PUNCHING MACHINE OPERATOR): Continue calcium, vitamin-D, weight-bearing exercise, [...] recommended. Assessment & Plan (11/03/2021 3:40 PM PUNCHING MACHINE OPERATOR): Well controlled on the current regimen. Avoidance of salt, proper body weight, and routine exercise recommended. Assessment & Plan (05/11/2021 4:51 PM CDT): Well controlled on the current regimen. Avoidance of salt, proper body weight, and routine exercise recommended. Assessment & Plan (10/14/2020 10:30 AM PUNCHING MACHINE OPERATOR): Well controlled on the current regimen. Avoidance of salt, proper body weight, and routine exercise recommended. Assessment & Plan (09/24/2019 2:43 PM PUNCHING MACHINE OPERATOR): Well controlled on the current [...] clorazepate Assessment & Plan (11/03/2021 3:40 PM PUNCHING MACHINE OPERATOR): Stable on clorazepate as needed. Assessment & Plan (05/11/2021 4:51 PM CDT): Well controlled on clorazepate. Assessment & Plan (10/14/2020 10:31 AM PUNCHING MACHINE OPERATOR): Well controlled with an occasional [...]
--- OUTSIDE RECORDS SUMMARY | 2025-03-20 15:13 | XMS_ITS | Referral Summary ---
Author Organization [facility] Address [address] [place] [address] Care Team Providers Care Veterinary Technology Instructor Name Role Phone Kostas Weber MD Primary Care Provider [phone] Jaime Jacobsen MD Unavailable Allergies Active Allergy Reactions Criticality Noted Date [...] unremarkable. Assessment & Plan (11/03/2021 3:41 PM CLINICAL RESEARCH SCIENTIST): Healthy lifestyle recommended and will repeat again in 1 year. Laboratory workup unremarkable. Memory loss 05/11/2021 Overview (11/03/2021): RPR, TSH, B12, urine heavy metal screen unremarkable 10/26/21 Assessment & Plan (05/11/2021 4:52 PM CDT): Laboratory evaluation before next visit. [facility] testing next visit. Leukopenia 10/14/2020 Assessment & Plan (10/14/2020 10:31 AM CLINICAL RESEARCH SCIENTIST): Mild and asymptomatic and has been present for several years. Will check again 6 months and refer back to her oncologist if worsens. Healthcare maintenance 09/24/2019 Assessment & Plan (09/24/2019 2:44 PM CLINICAL RESEARCH SCIENTIST): Flu shot each August. Tetanus booster every [...] patient. Assessment & Plan (10/14/2020 10:32 AM CLINICAL RESEARCH SCIENTIST): Discharged from both Gastroenterology and Oncology who both recommended no further colonoscopies. No current symptoms. Assessment & Plan (09/24/2019 2:43 PM CLINICAL RESEARCH SCIENTIST): Seems like her health is good enough [...] 03/20 Assessment & Plan (11/03/2021 3:41 PM CLINICAL RESEARCH SCIENTIST): We discussed a comprehensive list of medical [...] needed. Assessment & Plan (10/14/2020 10:31 AM CLINICAL RESEARCH SCIENTIST): We discussed a comprehensive list of medical [...] 03/20/2018 Assessment & Plan (11/03/2021 3:41 PM CLINICAL RESEARCH SCIENTIST): Timed get up and go test normal. Assessment & Plan (10/14/2020 10:32 AM CLINICAL RESEARCH SCIENTIST): Timed get up and go test normal. Assessment & Plan (03/20/2018 2:37 PM CDT): Timed get up and go test normal. Hypokalemia 09/12/2017 Assessment & Plan (05/04/2022 2:06 PM CDT): Well controlled on Klor-Con. Assessment & Plan (10/14/2020 10:32 AM CLINICAL RESEARCH SCIENTIST): Better controlled on prescription potassium. Check again [...] months Assessment & Plan (11/03/2021 3:40 PM CLINICAL RESEARCH SCIENTIST): Continue current supplementation and check level in 1 year. Assessment & Plan (05/11/2021 4:51 PM CDT): Continue current supplementation and check level in 6 months. Assessment & Plan (10/14/2020 10:31 AM CLINICAL RESEARCH SCIENTIST): Continue current supplementation and check level in 1 year. Assessment & Plan (09/24/2019 2:42 PM CLINICAL RESEARCH SCIENTIST): Continue supplementation check level before next visit. [...] visit. Assessment & Plan (11/03/2021 3:40 PM CLINICAL RESEARCH SCIENTIST): Continue B12 supplementation and check level in 1 year. Assessment & Plan (05/11/2021 4:52 PM CDT): Continue supplementation and check level in 6 months Assessment & Plan (10/14/2020 10:31 AM CLINICAL RESEARCH SCIENTIST): Continue B12 supplementation check level in 1 year. Assessment & Plan (09/24/2019 2:43 PM CLINICAL RESEARCH SCIENTIST): Continue supplementation check level before next visit. [...] 08/2019. Assessment & Plan (11/03/2021 3:40 PM CLINICAL RESEARCH SCIENTIST): Patient declines repeat bone density scanning is aware the risks this poses to her health. Assessment & Plan (10/14/2020 10:30 AM CLINICAL RESEARCH SCIENTIST): Continue calcium, vitamin-D, weight-bearing exercise repeat bone density scan 1 COVID-19 issues improved. Would recommend switching to Prolia at that time if needed as she is already completed 5 years of oral bisphosphonate therapy. Assessment & Plan (09/24/2019 2:43 PM CLINICAL RESEARCH SCIENTIST): Continue calcium, vitamin-D, weight-bearing exercise, Actonel started [...] recommended. Assessment & Plan (11/03/2021 3:40 PM CLINICAL RESEARCH SCIENTIST): Well controlled on the current regimen. Avoidance of salt, proper body weight, and routine exercise recommended. Assessment & Plan (05/11/2021 4:51 PM CDT): Well controlled on the current regimen. Avoidance of salt, proper body weight, and routine exercise recommended. Assessment & Plan (10/14/2020 10:30 AM CLINICAL RESEARCH SCIENTIST): Well controlled on the current regimen. Avoidance of salt, proper body weight, and routine exercise recommended. Assessment & Plan (09/24/2019 2:43 PM CLINICAL RESEARCH SCIENTIST): Well controlled on the current regimen. Avoidance [...] clorazepate Assessment & Plan (11/03/2021 3:40 PM CLINICAL RESEARCH SCIENTIST): Stable on clorazepate as needed. Assessment & Plan (05/11/2021 4:51 PM CDT): Well controlled on clorazepate. Assessment & Plan (10/14/2020 10:31 AM CLINICAL RESEARCH SCIENTIST): Well controlled with an occasional clorazepate. Assessment [...] on file Legal Sex Female 10:08 AM CLINICAL RESEARCH SCIENTIST Gender Identity Not on file Sexual Orientation [...] Most Recently Relevant to Health Maintenance Insurance [facility] Address: [address] [address] [employer] MEDICARE ADVANTAGE [facility] Address: [address] [address] [address] [place] [id number] Care Teams Veterinary Technology Instructor Relationship Specialty Start Date End Date Kostas Weber MD PCP - General 02/18/17 Jaime Jacobsen MD Medical Oncologist/Corporate Administrator Hematology and Oncology 10/26/18
[2025-03-20 15:19] LABS: Add Urine Microscopic? YES; Appearance Urine Clear (Clear); Bacteria Urine None Seen /hpf; Bilirubin Urine Negative (Negative); Blood Urine Negative (Negative); Color Urine Yellow (Yellow); Glucose Urine UA Negative (Negative); Ketones Urine Negative (Negative); Leukocyte Esterase Ur 1+ LEU/UL (Negative); Nitrate Urine Negative (Negative); Non Pathogenic Casts 0-2; Protein Urine Negative (Negative); RBC Urine 0-2 /hpf (0-2); Specific Grav Ur 1.014 (1.001-1.035); Squamous Epithelial Cell Urine None Seen /hpf (Few); Urobilinogen Urine 0.2 mg/dL (<2.0)
[2025-03-20 16:27] LABS: Alanine Aminotransferase 16 U/L (6-35); Albumin Level 4.2 g/dL (3.5-5.1); Alkaline Phosphatase 56 U/L (38-126); Anion Gap 6 mmol/L (4-12); Aspartate Amino Transferase 27 U/L (14-36); Bilirubin,Total 1.1 mg/dL (0.2-1.3); Blood Urea Nitrogen 20 mg/dL (7-17); Calcium 9.4 mg/dL (8.4-10.2); Carbon Dioxide 34 mmol/L (22-30); Chloride 99 mmol/L (98-107); Estimated Glomerular Filt Rate 52; Glucose 87 mg/dL (65-110); Sodium 139 mmol/L (137-145)
== END 2025-03-20 14:10 | disposition home or self-care (01) ==
PROVIDERS: PCP Family Medicine; Visit Provider Family Medicine
DX: N39.0 Urinary tract infection, site not specified (principal); I10 Essential (primary) hypertension; E43 Unspecified severe protein-calorie malnutrition; R53.83 Other fatigue
CPT/HCPCS: 36415; 80053; 81001; 84443; 85025; 87086